=== PATIENT | female | born 1960 | race Caucasian/White ===

== ENCOUNTER → 2016-12-07 | Outpatient (REF) | payer OTHER | END | disposition home or self-care (01) | LOC: M LAB REF 12:55 | PROVIDERS: ATTEND Internal Medicine Medical Oncology | DX: C54.1 Malignant neoplasm of endometrium (principal) ==

== ENCOUNTER 2016-12-16 18:01 | Emergency (ER) | payer OTHER ==
[2016-12-16] MEDS ORDERED: BACTRIM 160MG/800MG DS TAB As Ordered ONE (19:58)
--- NOTE | 2016-12-16 20:10 | EDDOCDS ---
Physician Documentation [facility] Name: Isabel Orellana Age: 56 yrs Sex: Female : 1960 Arrival Date: 12/16/2016 Time: 18:01 Bed Triage 1 Private MD: [facility], [place] Disposition: 12/16/16 19:57 Discharged to Home/Self Care. Impression: Local infection of the skin and subcutaneous tissue, unspecified - Middle of Back. - Condition is Stable. - Prescriptions for Bactrim DS 800- 160 mg Oral Tablet - take 2 tablet by ORAL route every 12 hours for 7 days; 28 tablet. - Medication Reconciliation, Local Pharmacy Hours form. - Follow up: [facility]; When: 1 - 2 days; Reason: Recheck today's complaints, Continuance of care. Follow up: Emergency Department; Reason: Worsening of conditions. - Problem is new. - Symptoms have improved. Historical: - Allergies: no known allergies; - Home Meds: 1. chemo treatments q3 weeks 2. Aleve 220 mg Oral tab as needed 3. Invega [place] Shot every three months 4. Vitamin D unknown, aone pill two times daily Oral 5. atorvastatin oral oral once daily 6. unknown nausea medication - PMHx: Cervical Cancer, endometrial carcinoma; DJD; Bipolar disorder; Arthritis knees & feet; - PSHx: D & C; Hysterectomy; - Social history: Smoking status: Patient states former smoker of tobacco. No barriers to communication noted, The patient speaks fluent Arabic, Speaks appropriately for age. - Family history: Not pertinent. - : The pt / caregiver states he / she is not on anticoagulants. Home medication list is obtained from the patient. - Exposure Risk Screening:: None identified. 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 6 in. (167.64 cm); Pain 0/10; 20:08 BP 120 / 80; Pulse 79; Resp 18; Temp 96.8; Pulse Ox 96% on R/A; Pain 0/10; nn1 18:02 Body Mass Index 43.25 (121.56 kg, 167.64 cm) sew MDM: 19:51 Wound Culture & GS - Most Extremities Ordered. EDMS 19:52 Trimethoprim-Sulfamethoxazole (MRSA dose) 160 mg-800 mg (DS) 2 tabs PO once ordered. ef1 Administered Medications: 20:00 Drug: Trimethoprim-Sulfamethoxazole (MRSA dose) 2 tabs [sulfamethoxazole 800 ck1 mg-trimethoprim 160 mg tablet (2 tabs)] Route: PO; Signatures: Dispatcher [employer] EDMS Junie Koroma,RN RN ck1 Angelika Araiza PA-C PARachelC ef1 Mariia AldrichRN RN graysond Aleksandr PortilloRN RN nn1 MTDD
--- NOTE | 2016-12-16 20:10 | EDDOCDS ---
Nurse's Notes [facility] Name: Isabel Orellana Age: 56 yrs Sex: Female : 1960 Arrival Date: 12/16/2016 Time: 18:01 Bed Triage 1 Private MD: [facility] [place] Diagnosis: Local infection of the skin and subcutaneous tissue, unspecified-Middle of Back Presentation: 12/16 18:15 Presenting complaint: Patient states: pt presents with picture of open wound on upper ead back. reports having site drained four years ago. states "it burst during the night last night with drainage.". Adult Sepsis Screening: The patient does not have new or worsening altered mentation. Patient's respiratory rate is less than 22. Systolic blood pressure is greater than 100. Patient has a qSOFA score of 0- Negative Sepsis Screen. Suicide/Homicide risk assessment- the patient denies having any suicidal and/or homicidal ideations and does not present with any other emotional, behavioral or mental health complaints. Status: Patient is not a adoption services manager or dependent. Transition of care: patient was not received from another setting of care. 18:15 Acuity: MICHELET Level 4 ead 18:15 Method Of Arrival: Walkin/Carried/Asstd ead Triage Assessment: 18:18 General: Appears in no apparent distress, comfortable, well nourished, well groomed, ead Behavior is appropriate for age, cooperative, pleasant. Pain: Denies pain. HIV screening NA for this visit Offered previously. Derm: Skin is pink, warm & dry. pt presents with picture of open wound to middle of upper back. reports drainage at home last night. 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 chemo treatments q3 weeks 2. Aleve 220 mg Oral tab as needed 3. Invega [place] Shot every three months 4. Vitamin D unknown, aone pill two times daily Oral 5. atorvastatin oral oral once daily 6. unknown nausea medication - PMHx: Cervical Cancer, endometrial carcinoma; DJD; Bipolar disorder; Arthritis knees & feet; - PSHx: D & C; Hysterectomy; - Social history: Smoking status: Patient states former smoker of tobacco. No barriers to communication noted, The patient speaks fluent South Korean, Speaks appropriately for age. - Family history: Not pertinent. - : The pt / caregiver states he / she is not on anticoagulants. Home medication list is obtained from the patient. - Exposure Risk Screening:: None identified. Screenin:00 Screening information is obtained from the patient. Fall risk: No risks identified. ck1 Assistance ADL's: requires no assistance with activities of daily living. Abuse/DV Screen: The patient / caregiver reports he/she is: not in a situation that causes fear, pain or injury. Nutritional screening: No deficits noted. Advance Directives: Currently, there is no health care proxy. home support is adequate. Assessment: 20:01 General: Appears in no apparent distress, comfortable, Behavior is appropriate for age, ck1 cooperative. Derm: Skin is normal, wound to upper mid-back. Draining serosanguinous drainage. dressing intact. Vital Signs: 18:02 BP 108 / 75; Pulse 101; Resp 18; Temp 97.4(O); Pulse Ox 97% on R/A; Weight 121.56 kg; sew Height 5 ft. 6 in. (167.64 cm); Pain 0/10; 20:08 BP 120 / 80; Pulse 79; Resp 18; Temp 96.8; Pulse Ox 96% on R/A; Pain 0/10; nn1 18:02 Body Mass Index 43.25 (121.56 kg, 167.64 cm) [facility] [place] Vitals: 18:02 Log In Time: December 16, 2016 at 18:02. [facility] [place] ED Course: 18:01 Patient visited by Elisabeth Tello. sew 18:01 [facility] is Private Physician. sew 18:01 Patient moved to Waiting sew 18:03 Patient visited by Elisabeth Tello. sew 18:03 Patient moved to Pre RCE sew 18:16 Triage Initiated ead 19:24 Patient moved to Triage 1 ck1 19:27 Patient visited by Junie Koroma RN. ck1 19:40 Angelika Araiza PA-C is PHCP. ef1 19:40 Endy Jara DO is Attending Physician. ef1 19:44 Patient visited by Angelika Araiza PA-C. ef1 19:56 Wound Culture & GS - Most Extremities Sent. ck1 19:57 [facility] is Referral Physician. ef1 20:00 The patient / caregiver is instructed regarding the plan of care and ED course. ck1 20:00 No IV's were initiated during this patient's visit. No procedures done that require ck1 assistance. Administered Medications: 20:00 Drug: Trimethoprim-Sulfamethoxazole (MRSA dose) 2 tabs [sulfamethoxazole 800 ck1 mg-trimethoprim 160 mg tablet (2 tabs)] Route: PO; Order Results: There are currently no results for this order. Outcome: 19:57 Discharge ordered by Provider. ef1 20:09 Discharge Assessment: Patient awake, alert and oriented x 3. No cognitive and/or nn1 functional deficits noted. Patient verbalized understanding of disposition instructions. patient administered narcotics - no. The following High Risk Discharge criteria are identified: None. Discharged to home ambulatory, with family. Condition: unchanged. No special radiology studies were completed. Property :Personal belongings accompany Pt. 20:09 Patient left the ED. nn1 Signatures: Junie KoromaRN RN ck1 Angelika Araiza PARachelC PA-C ef1 Elisabeth Tello EmilyRN RN Aleksandr Smith RN RN nn1 MELANIE
--- NOTE | 2016-12-18 21:10 | EDDOCDS ---
Physician Documentation [facility] Name: Isabel Mazariegos Age: 56 yrs Sex: Female : 1960 Arrival Date: 12/16/2016 Time: 18:01 Bed Triage 1 Private MD: [facility], [place] Disposition: 12/16/16 19:57 Discharged to Home/Self Care. Impression: Local infection of the skin and subcutaneous tissue, unspecified - Middle of Back. - Condition is Stable. - Prescriptions for Bactrim DS 800- 160 mg Oral Tablet - take 2 tablet by ORAL route every 12 hours for 7 days; 28 tablet. - Medication Reconciliation, Local Pharmacy Hours form. - Follow up: [facility]; When: 1 - 2 days; Reason: Recheck today's complaints, Continuance of care. Follow up: Emergency Department; Reason: Worsening of conditions. - Problem is new. - Symptoms have improved. Historical: - Allergies: no known allergies; - Home Meds: 1. chemo treatments q3 weeks 2. Aleve 220 mg Oral tab as needed 3. Invega [place] Shot every three months 4. Vitamin D unknown, aone pill two times daily Oral 5. atorvastatin oral oral once daily 6. unknown nausea medication - PMHx: Cervical Cancer, endometrial carcinoma; DJD; Bipolar disorder; Arthritis knees & feet; - PSHx: D & C; Hysterectomy; - Social history: Smoking status: Patient states former smoker of tobacco. No barriers to communication noted, The patient speaks fluent Lithuanian, Speaks appropriately for age. - Family history: Not pertinent. - : The pt / caregiver states he / she is not on anticoagulants. Home medication list is obtained from the patient. - Exposure Risk Screening:: None identified. 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 6 in. (167.64 cm); Pain 0/10; 20:08 BP 120 / 80; Pulse 79; Resp 18; Temp 96.8; Pulse Ox 96% on R/A; Pain 0/10; nn1 18:02 Body Mass Index 43.25 (121.56 kg, 167.64 cm) sew MDM: 19:51 Wound Culture & GS - Most Extremities Ordered. EDMS 19:52 Trimethoprim-Sulfamethoxazole (MRSA dose) 160 mg-800 mg (DS) 2 tabs PO once ordered. ef1 20:14 [facility] Payment Agreement was scanned into [employer] and attached to record. gjb :14 Financial registration complete. gjb 12/17 09:43 T-Sheet-- Draft Copy was scanned into [employer] and attached to record. gb Administered Medications: 12/16 20:00 Drug: Trimethoprim-Sulfamethoxazole (MRSA dose) 2 tabs [sulfamethoxazole 800 ck1 mg-trimethoprim 160 mg tablet (2 tabs)] Route: PO; Signatures: Dispatcher [employer] EDMS Mercedes Long, Reg Reg gb Keiko-Junie Marques,RN RN ck1 Angelika Araiza, PARachelC PARachelC ef1 Mariia AldrichRN RN Aleksandr SmithRN RN nn1 Thais Bunch The chart was reviewed and I authenticate all verbal orders and agree with the evaluation and treatment provided.Attachments: 20:14 [facility] Payment Agreement gjb 12/17 09:43 T-Sheet-- Draft Copy gb Chart Complete MTDD
--- NOTE | 2016-12-18 21:11 | EDDOCDS ---
Physician Documentation [facility] Name: Isabel Mazariegos Age: 56 yrs Sex: Female : 1960 Arrival Date: 12/16/2016 Time: 18:01 Bed Triage 1 Private MD: [facility] [place] Disposition: 12/16/16 19:57 Discharged to Home/Self Care. Impression: Local infection of the skin and subcutaneous tissue, unspecified - Middle of Back. - Condition is Stable. - Prescriptions for Bactrim DS 800- 160 mg Oral Tablet - take 2 tablet by ORAL route every 12 hours for 7 days; 28 tablet. - Medication Reconciliation, Local Pharmacy Hours form. - Follow up: [facility]; When: 1 - 2 days; Reason: Recheck today's complaints, Continuance of care. Follow up: Emergency Department; Reason: Worsening of conditions. - Problem is new. - Symptoms have improved. Historical: - Allergies: no known allergies; - Home Meds: 1. chemo treatments q3 weeks 2. Aleve 220 mg Oral tab as needed 3. Invega [place] Shot every three months 4. Vitamin D unknown, aone pill two times daily Oral 5. atorvastatin oral oral once daily 6. unknown nausea medication - PMHx: Cervical Cancer, endometrial carcinoma; DJD; Bipolar disorder; Arthritis knees & feet; - PSHx: D & C; Hysterectomy; - Social history: Smoking status: Patient states former smoker of tobacco. No barriers to communication noted, The patient speaks fluent Ukrainian, Speaks appropriately for age. - Family history: Not pertinent. - : The pt / caregiver states he / she is not on anticoagulants. Home medication list is obtained from the patient. - Exposure Risk Screening:: None identified. 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 6 in. (167.64 cm); Pain 0/10; 20:08 BP 120 / 80; Pulse 79; Resp 18; Temp 96.8; Pulse Ox 96% on R/A; Pain 0/10; nn1 18:02 Body Mass Index 43.25 (121.56 kg, 167.64 cm) sew MDM: 19:51 Wound Culture & GS - Most Extremities Ordered. EDMS 19:52 Trimethoprim-Sulfamethoxazole (MRSA dose) 160 mg-800 mg (DS) 2 tabs PO once ordered. ef1 20:14 [facility] Payment Agreement was scanned into [address] and attached to record. gjb :14 Financial registration complete. gjb 12/17 09:43 T-Sheet-- Draft Copy was scanned into [address] and attached to record. gb Administered Medications: 12/16 20:00 Drug: Trimethoprim-Sulfamethoxazole (MRSA dose) 2 tabs [sulfamethoxazole 800 ck1 mg-trimethoprim 160 mg tablet (2 tabs)] Route: PO; Signatures: Dispatcher MedHost EDMS Mercedes Long, Reg Reg gb Keiko-Junie Marques,RN RN ck1 Angelika Araiza, PARachelC PARachelC ef1 Mariia AldrichRN RN Aleksandr SmithRN RN nn1 Thais Bunch The chart was reviewed and I authenticate all verbal orders and agree with the evaluation and treatment provided.Attachments: 20:14 [facility] Payment Agreement gjb 12/17 09:43 T-Sheet-- Draft Copy gb Chart Complete MTDD
--- NOTE | 2016-12-18 21:11 | EDDOCDS ---
Nurse's Notes [facility] Name: Isabel Mazariegos Age: 56 yrs Sex: Female : 1960 Arrival Date: 12/16/2016 Time: 18:01 Bed Triage 1 Private MD: [facility] [place] Diagnosis: Local infection of the skin and subcutaneous tissue, unspecified-Middle of Back Presentation: 12/16 18:15 Presenting complaint: Patient states: pt presents with picture of open wound on upper ead back. reports having site drained four years ago. states "it burst during the night last night with drainage.". Adult Sepsis Screening: The patient does not have new or worsening altered mentation. Patient's respiratory rate is less than 22. Systolic blood pressure is greater than 100. Patient has a qSOFA score of 0- Negative Sepsis Screen. Suicide/Homicide risk assessment- the patient denies having any suicidal and/or homicidal ideations and does not present with any other emotional, behavioral or mental health complaints. Status: Patient is not a customer service leader or dependent. Transition of care: patient was not received from another setting of care. 18:15 Acuity: MICHELET Level 4 ead 18:15 Method Of Arrival: Walkin/Carried/Asstd ead Triage Assessment: 18:18 General: Appears in no apparent distress, comfortable, well nourished, well groomed, ead Behavior is appropriate for age, cooperative, pleasant. Pain: Denies pain. HIV screening NA for this visit Offered previously. Derm: Skin is pink, warm & dry. pt presents with picture of open wound to middle of upper back. reports drainage at home last night. 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 chemo treatments q3 weeks 2. Aleve 220 mg Oral tab as needed 3. Invega [place] Shot every three months 4. Vitamin D unknown, aone pill two times daily Oral 5. atorvastatin oral oral once daily 6. unknown nausea medication - PMHx: Cervical Cancer, endometrial carcinoma; DJD; Bipolar disorder; Arthritis knees & feet; - PSHx: D & C; Hysterectomy; - Social history: Smoking status: Patient states former smoker of tobacco. No barriers to communication noted, The patient speaks fluent Mosotho, Speaks appropriately for age. - Family history: Not pertinent. - : The pt / caregiver states he / she is not on anticoagulants. Home medication list is obtained from the patient. - Exposure Risk Screening:: None identified. Screenin:00 Screening information is obtained from the patient. Fall risk: No risks identified. ck1 Assistance ADL's: requires no assistance with activities of daily living. Abuse/DV Screen: The patient / caregiver reports he/she is: not in a situation that causes fear, pain or injury. Nutritional screening: No deficits noted. Advance Directives: Currently, there is no health care proxy. home support is adequate. Assessment: 20:01 General: Appears in no apparent distress, comfortable, Behavior is appropriate for age, ck1 cooperative. Derm: Skin is normal, wound to upper mid-back. Draining serosanguinous drainage. dressing intact. Vital Signs: 18:02 BP 108 / 75; Pulse 101; Resp 18; Temp 97.4(O); Pulse Ox 97% on R/A; Weight 121.56 kg; sew Height 5 ft. 6 in. (167.64 cm); Pain 0/10; 20:08 BP 120 / 80; Pulse 79; Resp 18; Temp 96.8; Pulse Ox 96% on R/A; Pain 0/10; nn1 18:02 Body Mass Index 43.25 (121.56 kg, 167.64 cm) [facility] [place] Vitals: 18:02 Log In Time: December 16, 2016 at 18:02. [facility] [place] ED Course: 18:01 Patient visited by Elisabeth Tello. sew 18:01 [facility] is Private Physician. sew 18:01 Patient moved to Waiting sew 18:03 Patient visited by Elisabeth Tello. sew 18:03 Patient moved to Pre RCE sew 18:16 Triage Initiated ead 19:24 Patient moved to Triage 1 ck1 19:27 Patient visited by Jnuie Koroma RN. ck1 19:40 Angelika Araiza PA-C is PHCP. ef1 19:40 Endy Jara DO is Attending Physician. ef1 19:44 Patient visited by Angelika Araiza PA-C. ef1 19:56 Wound Culture & GS - Most Extremities Sent. ck1 19:57 [facility] is Referral Physician. ef1 20:00 The patient / caregiver is instructed regarding the plan of care and ED course. ck1 20:00 No IV's were initiated during this patient's visit. No procedures done that require ck1 assistance. 20:13 Patient name changed from Isabel\\Alfredo\\Tamika\\S\\Reyna\\S\\ to Isabel\\Alfredo\\Tamika\\S\\Yair. EDMS 20:14 [facility] Payment Agreement was scanned into [employer] and attached to record. gjjanet 12/17 09:43 T-Sheet-- Draft Copy was scanned into [employer] and attached to record. gb Administered Medications: 12/16 20:00 Drug: Trimethoprim-Sulfamethoxazole (MRSA dose) 2 tabs [sulfamethoxazole 800 ck1 mg-trimethoprim 160 mg tablet (2 tabs)] Route: PO; Order Results: Lab Order: Wound Culture & GS - Most Extremities; SPEC'M 12/16/16 19:54 Test: GRAM STAIN; Value: GRAM STAIN RESULT; Status: F Test: GRAM STAIN; Value: MODERATE WBCS; Status: F Test: GRAM STAIN; Value: FEW RBCS; Status: F Test: GRAM STAIN; Value: FEW EPITHELIAL CELLS; Status: F Test: GRAM STAIN; Value: NO ORGANISMS SEEN; Status: F Outcome: 19:57 Discharge ordered by Provider. ef1 20:09 Discharge Assessment: Patient awake, alert and oriented x 3. No cognitive and/or nn1 functional deficits noted. Patient verbalized understanding of disposition instructions. patient administered narcotics - no. The following High Risk Discharge criteria are identified: None. Discharged to home ambulatory, with family. Condition: unchanged. No special radiology studies were completed. Property :Personal belongings accompany Pt. 20:09 Patient left the ED. nn1 Signatures: Dispatcher [employer] EDMS Mercedes Long, Reg Reg Junie Chaney,RN RN ck1 Angelika Araiza PA-C PARachelC ef1 Elisabeth Tello EmilyRN Aleksandr HillsRN RN nn1 Thais Bunch Chart Complete MTDD
== END 2016-12-16 20:09 | disposition home or self-care (01) ==
LOC: M ED 18:01
DX: L08.9 Local infection of the skin and subcutaneous tissue, unspecified (principal); C53.9 Malignant neoplasm of cervix uteri, unspecified; C54.1 Malignant neoplasm of endometrium; M19.90 Unspecified osteoarthritis, unspecified site; F31.9 Bipolar disorder, unspecified; Z87.891 Personal history of nicotine dependence; Z79.899 Other long term (current) drug therapy

== ENCOUNTER → 2016-12-28 | Outpatient (REF) | payer OTHER | END | disposition home or self-care (01) | LOC: M LAB REF 12:13 | PROVIDERS: ATTEND Internal Medicine Medical Oncology | DX: C54.1 Malignant neoplasm of endometrium (principal) ==

== ENCOUNTER → 2017-01-18 | Outpatient (REF) | payer OTHER | LOC: M LAB REF 12:37 | PROVIDERS: ATTEND Internal Medicine Medical Oncology | DX: C54.1 Malignant neoplasm of endometrium (principal) ==

== ENCOUNTER → 2017-01-27 | Outpatient (CLI) | payer OTHER ==
[~2017-01-27] MED LIST: GASTROGRAFIN SOLUTION 30ML (Q9963) As Ordered ONE; ISOVUE-370 76% 100ML VIAL (Q9967) As Ordered ONE
--- NOTE | 2017-01-27 17:04 | REP ---
CT study of the chest with IV contrast: History: Endometrial carcinoma. Increasing tumor marker. Comparison chest x-ray is from 11/03/2016. CT contrast dose: 100 mL of Isovue-[address] findings: A right-sided Rreobf-U-Htge catheter is seen with its tip in the superior vena cava. There is a curvilinear 7 mm pleural based opacity on the minor fissure in the right middle lobe. This may be focal pleural thickening. There is a granulomatous calcification in the right lower lobe which is benign in appearance. No other pulmonary nodule or mass lesion is seen. No pleural effusion or pericardial effusion is noted. No hilar or mediastinal mass or adenopathy is seen. No extrathoracic mass or adenopathy noted. There is diffuse fatty infiltration of the liver. No adrenal masses seen. A granulomatous calcification is noted in the spleen. Bone window settings show no bony destructive lesion. Impression: 7 mm area of pleural fibrosis along the minor fissure on the right. Granulomatous calcification right lung base. No active cardiopulmonary disease. Signed by Kane Soto MD 01/28/2017 08:12 A
--- NOTE | 2017-01-27 17:20 | REP ---
CT study of the abdomen and pelvis without and with IV contrast: With oral contrast: History: Endometrial carcinoma. Increased tumor markers. Comparison CT study is from November 03, 2016. CT contrast dose: 100 mL of Isovue [address] findings: There is mild to moderate diffuse fatty infiltration of the liver. This is a little more prominent than on the prior study. No liver mass lesion is seen however. Spleen remains unremarkable except for a granulomatous calcification. The kidneys enhance symmetrically and are morphologically intact. No adrenal mass is seen. The left periaortic adenopathy noted on the 11/03/2016 prior study has decreased in size from 2.5 cm previously to 0.8 cm today. No new periaortic aparna focus is seen. No mesenteric ap[place] enlargement or mass lesion is seen. A normal appendix is seen. Small and large intestinal bowel loops are normal. The previous study showed a aparna enlargement along the left pelvic sidewall posterior the external iliac vein. This has decreased in size as well from the prior study. It measures 2.2 cm in anteroposterior x 1.7 cm in medial to lateral x 2.6 cm craniocaudal. Previous dimensions were 2.9 x 2.0 x 3.6 cm. No new pelvic adenopathy is seen. Uterus is surgically absent. Bladder appears intact. No bony destructive lesion is seen. There is some osteoarthritis of the left hip. Impression: Improvement noted in the previously observed left pelvic sidewall and left periaortic lymphadenopathy. No new adenopathy or new metastasis seen. Signed by Kane Soto MD 01/28/2017 08:12 A
== END ==
LOC: M RAD 14:17
PROVIDERS: ATTEND Internal Medicine Medical Oncology
DX: C54.1 Malignant neoplasm of endometrium (principal); R91.8 Other nonspecific abnormal finding of lung field; J98.4 Other disorders of lung
CPT/HCPCS: 71260; 74178; Q9963; Q9967

== ENCOUNTER → 2017-03-01 | Outpatient (REF) | payer OTHER | LOC: M LAB REF 12:53 | PROVIDERS: ATTEND Internal Medicine Medical Oncology | DX: C54.1 Malignant neoplasm of endometrium (principal) ==

== ENCOUNTER → 2017-03-22 | Outpatient (CLI) | payer OTHER ==
--- NOTE | 2017-03-23 03:59 | REP ---
Clinical: Endometrial carcinoma for restaging. Technique: Axial contrast enhanced images from the thoracic inlet to the upper abdomen using 100 ml Isovue 370 intravenous contrast material with coronal and sagittal re-formations. Comparison: 01/27/2017. Findings: 7 mm density along the minor fissure as well as 3 mm calcified nodule in the right lung base remain stable and suggests chronic changes related to prior granulomatous disease. No acute pulmonary parenchymal consolidation, significant nodule or mass lesion identified. No pleural effusion/reaction. No pneumothorax. Tracheobronchial tree is patent. No adenopathy. Mediastinum including thoracic aorta, heart and pericardium appear normal. Surrounding musculoskeletal structures without focal osseous abnormality. Szfmam-T-Jsek noted in the right anterior chest wall. Upper abdomen demonstrates stable appearance of bilateral adrenal glands. Impression: Stable changes as described above. Findings likely related to prior granulomas disease. No evidence for acute mediastinal or pleuroparenchymal process. Signed by Saúl Ott MD 03/23/2017 03:51 A
--- NOTE | 2017-03-23 04:06 | REP ---
Clinical: Endometrial carcinoma for restaging. Technique: Axial contrast enhanced images from the lung bases to the pubic symphysis using oral and 100 ml Isovue 370 intravenous contrast material along with precontrast and delayed images of the abdomen as well as coronal and sagittal re-formations. Comparison: 01/27/2017, 11/03/2016. Findings: Lung bases demonstrate calcified granuloma in the right lower lobe. Visualized portions of the heart and pericardium normal. Liver, spleen, pancreas, bilateral adrenal glands and kidneys are essentially normal. A 2 mm nonobstructing left intrarenal calculus identified. Cholelithiasis suggested without acute cholecystitis. The enteric system is without obstruction or acute inflammatory process. Pelvis demonstrates collapsed bladder and evidence for prior hysterectomy. No ascites. No free air. Para-aortic and left pelvic sidewall lymph nodes may be very minimally improved although appear relatively stable. No new adenopathy, evidence for metastasis or mass lesion appreciated. Musculoskeletal structures demonstrate age-related changes without focal osseous abnormality. Impression: 1. Left para-aortic and left pelvic sidewall lymph nodes are relatively stable/very minimally improved. 2. No new acute adenopathy, metastatic focus, or mass lesion appreciated. No ascites. 3. 2 mm nonobstructing left renal calculus. Signed by Saúl Ott MD 03/23/2017 03:58 A
== END ==
LOC: M RAD 13:05
PROVIDERS: ATTEND Internal Medicine Medical Oncology
DX: C54.1 Malignant neoplasm of endometrium (principal); N20.0 Calculus of kidney
CPT/HCPCS: 71260; 74178; Q9963; Q9967

== ENCOUNTER → 2017-03-28 | Outpatient (REF) | payer OTHER | LOC: M LAB REF 16:33 | PROVIDERS: ATTEND Internal Medicine Medical Oncology | DX: C54.1 Malignant neoplasm of endometrium (principal) ==

== ENCOUNTER → 2017-04-13 | Outpatient (CLI) | payer OTHER ==
--- NOTE | 2017-04-13 16:45 | REP ---
PET/CT: History: Restaging endometrial carcinoma. Persistent pelvic lymphadenopathy. Status post total abdominal hysterectomy and bilateral salpingo-oophorectomy. Completed adjuvant chemotherapy. Comparisons: CT studies are from 03/22/2017 and 03/29/2017 as well as 11/03/2016. Previous scans are shown left periaortic and left pelvic sidewall lymphadenopathy. TECHNIQUE: 49 minutes following the intravenous injection of a 9.2 mCi dose of F-18 FDG, three-dimensional PET scintigraphy is acquired from the skull base to the proximal thighs. Triplanar noncontrast CT scanning is acquired through the same anatomic range for attenuation correction, and image registration with scan parameters optimized to minimize radiation exposure to the patient. PET scintigraphy and CT datasets were fused and displayed on a workstation with multiplanar and projection display capability. PET/CT Findings: The previously noted left periaortic lymph node located below the level of the left renal vascular pedicle is not hypermetabolic. Maximum standard uptake value is 1.2 within this tiny sub-centimeter lymph node. This is decreased in size from its appearance on the 11/03/2016 prior study and unchanged from the most recent exam of 03/22/2017. It measures 7 mm in greatest diameter. The previously noted left pelvic sidewall lymph node is again seen. This shows visible but non hypermetabolic FDG accumulation. Maximum standard uptake value is 2.1 within this 2.0 cm lymph node. This has decreased in size since the 10/[address] study as well. Today it measures 2.3 x 2.0 cm, previously 2.9 x 2.0 cm in October 2016. Most recently this node measured 1.9 x 1.5 cm in 03/22/2017 scan. No other abdominal or pelvic hypermetabolic uptake is seen. No abnormal hypermetabolic uptake is seen in the chest. Head and neck soft tissues show no abnormal hypermetabolic uptake. Impression: Non-hypermetabolic but visible uptake in a persistently enlarged left pelvic sidewall lymph node. This is improved from 11/03/2016. No other abnormal FDG accumulation is seen. The previously noted left periaortic lymph node is less than a centimeter in diameter and shows no discernible FDG accumulation. Otherwise negative. Signed by Kane Soto MD 04/13/2017 05:12 P
== END ==
LOC: M PLARAD 10:18
PROVIDERS: ATTEND Internal Medicine Medical Oncology
DX: C54.1 Malignant neoplasm of endometrium (principal); Z90.710 Acquired absence of both cervix and uterus; Z90.722 Acquired absence of ovaries, bilateral; Z92.21 Personal history of antineoplastic chemotherapy; R59.0 Localized enlarged lymph nodes
CPT/HCPCS: 78815; A9552

== ENCOUNTER → 2017-04-14 | Outpatient (CLI) | payer OTHER ==
--- NOTE | 2017-04-14 10:56 | RADONC ---
RADIATION ONCOLOGY FOLLOWUP NOTE DATE: 04/14/2017 CHART NUMBER: [id number] DIAGNOSIS: Endometrial cancer. STAGE: IIIC2, [id number]. ECOG PERFORMANCE STATUS: 0. FOLLOWUP NOTE: Ms. Mazariegos is a very pleasant 56-year-old white female with the diagnosis of what appears to be a stage IIIC2, [id number] moderately differentiated endometrial adenocarcinoma who is initially presented to us on 10/19/2016 for consideration of postoperative radiation therapy following total abdominal hysterectomy, bilateral salpingo-oophorectomy, as well as pelvic and periaortic lymphadenectomy. Since that time the patient has undergone systemic therapy consisting of carboplatin and Taxol. She completed six cycles of carboplatin and Taxol and her last treatment was on March 01, 2017. She is now presenting for consideration of her postoperative radiation therapy. The patient presents today reporting that she is doing quite well with no complaints at this time related to her chemotherapy. She is ready to start radiation. She is having no urinary or bowel difficulties. No bone pain. She has no pelvic difficulties either. The patient's review of systems is noncontributory. She denies nausea, vomiting, fevers, chills, night sweats, diplopia, headaches, anxiety or depression, anorexia, weight loss, visual disturbances, chest pain, urinary or bowel difficulties, bone pain, or neurological problems. PHYSICAL EXAMINATION: The patient is a well-developed, well-nourished, female in no acute distress. HEENT exam is normocephalic, atraumatic. Extraocular movements are intact. There is no palpable cervical, supraclavicular, infraclavicular, axillary, or inguinal lymphadenopathy present. Lungs are clear to auscultation and percussion. Heart has a regular rate and rhythm. Abdomen is benign with no hepatosplenomegaly, masses, or tenderness. Gynecology exam was deferred. Skeletal examination reveals no tenderness to pressure or percussion of the bony skeleton. Extremities reveal no clubbing, cyanosis, or edema. Neurologic exam is grossly intact, as is the remainder of the physical examination. ASSESSMENT: Ms. Green has completed chemotherapy without difficulty and is now presenting for consideration of her postoperative radiation therapy. A PET scan was done on 04/13/2017 that showed some continued pelvic as well as periaortic lymphadenopathy but no hypermetabolic uptake. I have discussed with the patient in detail the potential benefits as well as possible acute and chronic sequelae of external beam radiation therapy. We discussed logistics of treatment planning, simulation and subsequent fractionated daily radiation treatments. I am scheduling the patient for the next available simulation slot and radiation treatments will follow. Thank you for allowing us to participate in the care of this very pleasant woman. If I could be of any further assistance or provide you with any information, please free to contact me anytime. cc: Love Barraza MD *Carolina Ruelas MD
--- NOTE | 2017-04-19 11:04 | RADONC ---
RADIATION ONCOLOGY SIMULATION NOTE: CHART NO: [id number] DATE: 04/19/2017 Ms. Rene White was taken to the CT scan for CT simulation of her abdominal pelvic field. CT was accomplished without difficulty or discomfort. Radiation treatment planning is underway and radiation treatments will begin subsequently. An immobilization device was created and will be used throughout the course of treatment. It was also created without difficulty or discomfort. I was physically present throughout the course of CT simulation. [facility]
== END ==
LOC: M ONCR 08:49
PROVIDERS: ATTEND Radiology Radiation Oncology
DX: C54.1 Malignant neoplasm of endometrium (principal)

== ENCOUNTER 2017-04-19 11:41 | Outpatient (RCR) | payer OTHER | END 2017-04-27 | LOC: M ONCR 11:41 | PROVIDERS: ATTEND Radiology Radiation Oncology | DX: C54.1 Malignant neoplasm of endometrium (principal) ==

== ENCOUNTER → 2017-04-19 | Outpatient (REF) | payer OTHER | LOC: M LAB REF 12:36 | PROVIDERS: ATTEND Internal Medicine Medical Oncology | DX: C54.1 Malignant neoplasm of endometrium (principal) ==

== ENCOUNTER → 2017-04-19 | Outpatient (CLI) | payer OTHER | LOC: M RAD 10:29 | PROVIDERS: ATTEND Radiology Radiation Oncology | DX: C54.1 Malignant neoplasm of endometrium (principal) ==

== ENCOUNTER 2017-04-28 10:37 | Outpatient (RCR) | payer OTHER ==
--- NOTE | 2017-05-04 07:13 | RADONC ---
RADIATION ONCOLOGY PROGRESS NOTE DATE: 05/03/2017 CHART NUMBER: [id number] Ms. Orellana is presently at a dose of 900 cGy to her pelvis and periaortic region and is tolerating treatments quite well at this point with no complaints related to her radiation therapy other than some mild occasional nausea. The patient's review of systems is positive for some nausea but is otherwise noncontributory. Denies nausea, vomiting, fevers, chills, night sweats, diplopia, headaches, anxiety or depression, anorexia, weight loss, visual disturbances, chest pain, urinary or bowel difficulties, bone pain, or neurological problems. PHYSICAL EXAMINATION: The patient's skin is in good condition with no evidence of radiation change present. There is no moist or dry desquamation. The remainder of her physical exam remains unchanged. Ms. Orellana is tolerating treatments quite well and radiation will continue as scheduled.
--- NOTE | 2017-05-09 11:52 | RADONC ---
RADIATION ONCOLOGY PROGRESS NOTE: DATE: 05/09/2017 CHART NUMBER: [id number]. PROGRESS NOTE: Ms. Orellana is presently at a dose of 1620 cGy to her pelvis and periaortic is tolerating treatments quite well at this point with no significant difficulties related to her radiation therapy. She is having no urinary or bowel difficulties and no bone pain. REVIEW OF SYSTEMS: The patient's review of systems is noncontributory. Denies nausea, vomiting, fevers, chills, night sweats, diplopia, headaches, anxiety or depression, anorexia, weight loss, visual disturbances, chest pain, urinary or bowel difficulties, bone pain, or neurological problems. PHYSICAL EXAMINATION: The patient's skin is in good condition with no evidence of moist or dry desquamation. The remainder of her physical exam remains unchanged. Ms. Orellana is tolerating treatments quite well and radiation will continue as scheduled.
--- NOTE | 2017-05-17 06:33 | RADONC ---
RADIATION ONCOLOGY PROGRESS NOTE: DATE: 05/16/2017 CHART NUMBER: [id number]. PROGRESS NOTE: Ms. Orellana is presently at a dose of 2520 cGy to her pelvis and periaortic and is generally tolerating her treatments fairly well, although she has been complaining of significant diarrhea over the past few days. The patient reports that she has had 10-15 bowel movements a day over the last few days. She had been running 4 or 5. She has not used any Imodium at this point. She is eating normally. REVIEW OF SYSTEMS: The patient's review of systems is positive for some loose bowel movement but is otherwise noncontributory. Denies nausea, vomiting, fevers, chills, night sweats, diplopia, headaches, anxiety or depression, anorexia, weight loss, visual disturbances, chest pain, urinary or bowel difficulties, bone pain, or neurological problems. PHYSICAL EXAMINATION: The patient's skin is in good condition with no evidence of moist or dry desquamation. The remainder of physical exam remains unchanged. Ms. Orellana has been instructed to use some Imodium and we will continue to follow her closely. I have let her know that we can take a treatment break if her bowel movements do not stabilize over the next couple of days with Imodium. She has also been given dietary instructions and a list of foods to avoid. In the he meantime, at her request, radiation will continue.
--- NOTE | 2017-05-23 12:15 | RADONC ---
RADIATION ONCOLOGY PROGRESS NOTE DATE: 05/23/2017 CHART NUMBER: [id number] Ms. Orellana is presently at a dose of 3420 cGy to her pelvis and periaortic and is tolerating treatments quite well at this point with no significant difficulties related to radiation therapy other than some itching of the skin in the treated morejon. The patient's review of systems is positive for skin aging but is otherwise noncontributory. She denies nausea, vomiting, fevers, chills, night sweats, diplopia, headaches, anxiety or depression, anorexia, weight loss, visual disturbances, chest pain, urinary or bowel difficulties, bone pain, or neurological problems. PHYSICAL EXAMINATION: The patient's skin shows some erythema and tanning present but overall is in good condition with no evidence of moist or dry desquamation. The remainder of her physical exam remains unchanged. Ms. Orellana is tolerating treatments quite well and radiation will continue as scheduled.
[2017-05-27] MEDS ORDERED: SILV-4 TOP (09:48)
== END 2017-05-27 ==
LOC: M ONCR 10:37
PROVIDERS: ATTEND Radiology Radiation Oncology
DX: C54.1 Malignant neoplasm of endometrium (principal)

== ENCOUNTER 2017-06-01 08:59 | Outpatient (RCR) | payer OTHER ==
[~2017-06-01 08:59] MED LIST changes: -GASTROGRAFIN SOLUTION 30ML (Q9963) As Ordered ONE; -ISOVUE-370 76% 100ML VIAL (Q9967) As Ordered ONE; +SILV-4 TOP
--- NOTE | 2017-06-03 09:36 | RADONC ---
RADIATION ONCOLOGY PROGRESS NOTE DATE: 06/01/2017 CHART NUMBER: [id number]. Ms. Orellana is presently at a dose of 4320 centigrade to her periaortic and pelvic lymph nodes and is tolerating treatments fairly well with no significant difficulties related to her radiation therapy. The patient reports that her skin has some tenderness and erythema present and she does have some loss of appetite, but otherwise she is having no problems. The patient's review of systems is positive for skin tenderness and loss of appetite, but is overall otherwise negative. Denies nausea, vomiting, fevers, chills, night sweats, diplopia, headaches, anxiety or depression, anorexia, weight loss, visual disturbances, chest pain, urinary or bowel difficulties, bone pain, or neurological problems. PHYSICAL EXAMINATION: The patient's skin shows erythema and tanning present, but overall is in generally good condition. The remainder of physical exam remains unchanged. Ms. Orellana is scheduled for treatment completion tomorrow and radiation will continue as scheduled.
--- NOTE | 2017-06-03 09:40 | RADONC ---
RADIATION ONCOLOGY TREATMENT SUMMARY DATE: 06/03/2017 CHART NUMBER: [id number] DIAGNOSIS: Endometrial carcinoma. STAGE: IIIC2, [id number]. ECOG PERFORMANCE STATUS: 0. TREATMENT SUMMARY: Ms. Orellana is a very pleasant 55-year-old white female with the diagnosis of a stage IIIC2, [id number], moderately differentiated endometrial adenocarcinoma who presented to us status post total abdominal hysterectomy, bilateral salpingo-oophorectomy, as well as pelvic and periaortic lymphadenectomy followed by chemotherapy consisting of carboplatin and Taxol for consideration of external beam radiation therapy in attempt to increase the likelihood of achieving local control. We treated the patient to her pelvis and periaortic lymph nodes for a dose of 4500 cGy delivered in 25 fractions of 180 cGy each over 36 elapsed days from 04/27/2017 through 06/02/2017. The patient's pelvis and periaortic nodes were treated on a linear accelerator utilizing an 18 MV photon beam via 3-D conformal therapy with anterior and posterior left and right lateral morejon. Ms. Orellana tolerated her treatments quite well with no significant difficulties related to her radiation therapy. She was able to complete therapy as prescribed. I have scheduled the patient to see me again in 1 month for further followup. She will also continue to be followed by her other physicians as well. Thank you for allowing us to participate in the care of this very pleasant woman. If I could be of any further assistance or provide you with any information, please free to contact me anytime.
== END 2017-06-27 ==
LOC: M ONCR 08:59
PROVIDERS: ATTEND Radiology Radiation Oncology
DX: C54.1 Malignant neoplasm of endometrium (principal)

== ENCOUNTER → 2017-06-06 | Outpatient (REF) | payer OTHER | LOC: M LAB REF 17:32 | PROVIDERS: ATTEND Internal Medicine Medical Oncology | DX: C54.1 Malignant neoplasm of endometrium (principal) ==

== ENCOUNTER → 2017-07-04 | Outpatient (REF) | payer OTHER | LOC: M LAB REF 16:43 | PROVIDERS: ATTEND Internal Medicine Medical Oncology | DX: C54.1 Malignant neoplasm of endometrium (principal) ==

== ENCOUNTER → 2017-07-06 | Outpatient (CLI) | payer OTHER ==
--- NOTE | 2017-07-06 11:16 | RADONC ---
RADIATION ONCOLOGY FOLLOWUP NOTE DATE: 07/06/2017 CHART NUMBER: [id number] DIAGNOSIS: Endometrial cancer. STAGE: IIIC2, [id number]. ECOG PERFORMANCE STATUS: 0 Ms. Orellana is a very pleasant 56-year-old white female with the diagnosis of a stage IIIC2, [id number], moderately differentiated endometrial adenocarcinoma who is presenting to us today for routine followup visit 1 month post completion of external beam radiation therapy. The patient presents today reporting that she is doing quite well with no complaints at this time related to her radiation therapy or disease. She has no urinary or bowel difficulties and no bone pain. The patient's review of systems is noncontributory. She denies nausea, vomiting, fevers, chills, night sweats, diplopia, headaches, anxiety or depression, anorexia, weight loss, visual disturbances, chest pain, urinary or bowel difficulties, bone pain, or neurological problems. PHYSICAL EXAMINATION: The patient is a well-developed, well-nourished female in no acute distress. HEENT exam is normocephalic, atraumatic. Extraocular movements are intact. There is no palpable cervical, supraclavicular, infraclavicular, axillary, or inguinal lymphadenopathy present. Lungs are clear to auscultation and percussion. Heart has a regular rate and rhythm. Abdomen is benign with no hepatosplenomegaly, masses, or tenderness. SCOUT examination deferred. Skeletal examination reveals no tenderness to pressure or percussion of the bony skeleton. Extremities reveal no clubbing, cyanosis, or edema. Neurologic exam is grossly intact, as is the remainder of the physical examination. ASSESSMENT: The patient is clinically doing well at this point with no difficulties related to her completed radiation. The patient reports that she is being seen by numerous physicians including her medical oncologist, Dr. Barraza, as well as Dr. Ruelas. In light of this, I have discharged her from our followup except on a p.r.n. basis. She will be continuing with her close management through her medical oncologist, Dr. Barraza. cc: MD Love Maravilla MD [facility]
== END ==
LOC: M ONCR 09:52
PROVIDERS: ATTEND Radiology Radiation Oncology
DX: C54.1 Malignant neoplasm of endometrium (principal)

== ENCOUNTER → 2017-10-14 | Outpatient (CLI) | payer OTHER ==
[~2017-10-14] MED LIST changes: +GASTROGRAFIN SOLUTION 30ML (Q9963) As Ordered ONE; +ISOVUE-370 76% 100ML VIAL (Q9967) As Ordered ONE
--- NOTE | 2017-10-19 09:49 | REP ---
Clinical: Endometrial carcinoma. Technique: Axial contrast enhanced images from the lung bases to the pubic symphysis using oral (per protocol) and 100 ml Isovue 370 intravenous contrast material along with precontrast and delayed images of the abdomen as well as coronal and sagittal re-formations. Comparison: 03/22/2017. Findings: Lung bases are clear. Visualized heart and pericardium are normal. Liver, spleen, pancreas, gallbladder, bilateral adrenal glands and kidneys are essentially normal. Small benign adrenal adenoma involving the right adrenal gland cannot be excluded and 2 mm nonobstructing left renal calculus is identified. The enteric system is without obstruction or acute inflammatory process and a normal terminal ileum and appendix are identified in the right lower quadrant. Pelvis demonstrates collapsed normal bladder and evidence for prior hysterectomy. Left pelvic sidewall lymph node is again identified and may be slightly increased in size when compared to prior examination (images 119 - 131). No further adenopathy or recurrent lesion is identified. No pelvic fluid or ascites. No free air. Vasculature appears stable and without aneurysm. Surrounding musculoskeletal structures demonstrate age-related changes without focal osseous abnormality. Impression: 1. Left pelvic sidewall lymph node is relatively similar to prior examination although slight increase in size and extension along the left pelvic wall cannot be excluded. No further new adenopathy or recurrent mass lesion. No ascites. 2. Stable small right adrenal adenoma unchanged compared to prior examination. 3. Stable 2 mm nonobstructing left renal calculus. Signed by Saúl Ott MD 10/19/2017 09:41 A
--- NOTE | 2017-10-19 09:55 | REP ---
Clinical: Endometrial carcinoma. Technique: Axial contrast enhanced images from the thoracic inlet to the upper abdomen using 100 ml Isovue 370 intravenous contrast material with coronal and sagittal re-formations. Comparison: 03/22/2017. Findings: There is a new 13 mm soft tissue nodule in the deep right sulcus (image 89) as well as possible similar 9 mm nodule in the deep left sulcus (image 88), and given the patient's history findings are suspicious for metastatic disease. A 6 mm nodule in the posterior right lower lobe (image 68) is also identified and nonspecific. Smaller scattered noncalcified nodules as well as calcified granuloma in the right lower lobe remain relatively similar to prior examination. No pleural effusion. No pneumothorax. Tracheobronchial tree is patent. No significant adenopathy. Mediastinum demonstrates relatively normal / stable thoracic aorta and heart/pericardium. Surrounding musculoskeletal structures are intact. Right-sided [id number] with tip in the SVC. Impression: 6 mm, 9 mm, and 13 mm soft tissue nodules represent a change from prior examination and suspicious for metastatic disease. PET-CT and/or 3-month follow-up may be warranted. Signed by Saúl Ott MD 10/19/2017 09:46 A
== END ==
LOC: M RAD 14:59
PROVIDERS: ATTEND Internal Medicine Medical Oncology
DX: C54.1 Malignant neoplasm of endometrium (principal); Z92.21 Personal history of antineoplastic chemotherapy; R91.8 Other nonspecific abnormal finding of lung field; N20.0 Calculus of kidney
CPT/HCPCS: 71260; 74178; Q9963; Q9967

== ENCOUNTER → 2017-11-15 | Outpatient (CLI) | payer OTHER ==
[~2017-11-15] MED LIST changes: -GASTROGRAFIN SOLUTION 30ML (Q9963) As Ordered ONE; -ISOVUE-370 76% 100ML VIAL (Q9967) As Ordered ONE
--- NOTE | 2017-11-16 17:53 | REP ---
PET/CT: History: High risk stage III see endometrial carcinoma with rising CA - 125, new pulmonary nodules on CT suspicious for metastatic lesions. She is status post debulking surgery August 2016 with adjuvant chemotherapy and pelvic radiation therapy. Comparisons: Comparison PET-CT study is from April 13, 2017. Comparison chest abdomen pelvis CT exam October 14, 2017 and March 22, 2017. TECHNIQUE: 52 minutes following the intravenous injection of a 9.0 mCi dose of F-18 FDG, three-dimensional PET scintigraphy is acquired from the skull base to the proximal thighs. Triplanar noncontrast CT scanning is acquired through the same anatomic range for attenuation correction, and image registration with scan parameters optimized to minimize radiation exposure to the patient. PET scintigraphy and CT datasets were fused and displayed on a workstation with multiplanar and projection display capability. PET/CT Findings: There is no discernible FDG accumulation in the any of the new pulmonary nodules seen in the lower lobes of the lungs. However, since these are new when compared to the February 2017 they must still be considered suspicious for metastatic disease. Maximum standard uptake value in the larger of these nodules which are all less than a centimeter, is 0.7. There is no abnormal hypermetabolic uptake in the thorax. No adenopathy is seen. Head and neck soft tissues are unremarkable. No abnormal hypermetabolic uptake is seen within the liver or spleen. No adrenal masses seen. No abnormal periaortic hypermetabolic uptake is seen. There is hypermetabolic uptake today in a progressive fashion along the left lateral pelvic side wall where accompanying CT study shows a aparna mass lesion. Maximum standard uptake value in this left pelvic sidewall aparna deposit is 7.6. This lesion has a maximum cranial caudal span of 4.1 cm x 2.1 cm x 2.2 cm. Previously maximum standard uptake value in this aparna focus was 2.1. It previously measured 2.3 x 2.0 cm most recently in transverse dimension. No other abnormal pelvic hypermetabolic uptake. The study is otherwise unremarkable. Impression: Progressive left pelvic sidewall disease with increased hypermetabolic uptake and an increase in size since the last PET CT. Multiple bilateral lower lobe pulmonary nodules are new and therefore considered suspicious for metastatic disease despite the fact that no discernible FDG accumulation is seen within the small sub-centimeter nodules. Signed by Kane Soto MD 11/17/2017 08:02 A
== END ==
LOC: M PLARAD 09:23
PROVIDERS: ATTEND Internal Medicine Medical Oncology
DX: C54.1 Malignant neoplasm of endometrium (principal); R91.8 Other nonspecific abnormal finding of lung field
CPT/HCPCS: 78815; A9552

== ENCOUNTER → 2017-11-23 | Outpatient (REF) | payer OTHER ==
[2017-11-25 09:45] LABS: CA 125 61.9 U/ML (<30.2)
== END ==
LOC: M LAB REF 12:41
DX: C54.1 Malignant neoplasm of endometrium (principal)
CPT/HCPCS: 86304

== ENCOUNTER → 2017-12-30 | Outpatient (REF) | payer OTHER | LOC: M LAB REF 12:16 | DX: C54.1 Malignant neoplasm of endometrium (principal); E07.9 Disorder of thyroid, unspecified | CPT/HCPCS: 84443 ==

== ENCOUNTER → 2018-01-20 | Outpatient (REF) | payer OTHER | LOC: M LAB REF 13:50 | DX: C54.1 Malignant neoplasm of endometrium (principal); Z79.899 Other long term (current) drug therapy | CPT/HCPCS: 84443 ==

== ENCOUNTER → 2018-02-10 | Outpatient (REF) | payer OTHER ==
[2018-02-10 14:04] LABS: THYROID STIMULATING HORMONE 0.155 uIU/ML (0.358-3.740)
[2018-02-10 14:06] LABS: CA 125 41.5 U/ML (<30.2)
== END ==
LOC: M LAB REF 12:45
DX: C54.1 Malignant neoplasm of endometrium (principal)
CPT/HCPCS: 84443

== ENCOUNTER → 2018-03-03 | Outpatient (REF) | payer OTHER ==
[2018-03-03 14:29] LABS: THYROID STIMULATING HORMONE 0.318 uIU/ML (0.358-3.740)
[2018-03-03 14:48] LABS: CA 125 31.2 U/ML (<30.2)
== END ==
LOC: M LAB REF 13:11
DX: C54.1 Malignant neoplasm of endometrium (principal)
CPT/HCPCS: 84443

== ENCOUNTER → 2018-03-24 | Outpatient (REF) | payer OTHER ==
[2018-03-24 12:31] LABS: CA 125 32.9 U/ML (<30.2)
== END ==
LOC: M ONCM 08:55
DX: Z13.29 Encounter for screening for other suspected endocrine disorder (principal); C77.5 Secondary and unspecified malignant neoplasm of intrapelvic lymph nodes; C54.1 Malignant neoplasm of endometrium
CPT/HCPCS: 84443

== ENCOUNTER → 2018-04-04 | Outpatient (CLI) | payer OTHER | LOC: M PLARAD 10:09 | DX: C54.1 Malignant neoplasm of endometrium (principal) | CPT/HCPCS: 78815 ==

== ENCOUNTER → 2018-04-14 | Outpatient (REF) | payer OTHER ==
[2018-04-14 14:17] LABS: CA 125 38.8 U/ML (<30.2)
== END ==
LOC: M LAB REF 12:36
DX: C54.1 Malignant neoplasm of endometrium (principal); Z79.899 Other long term (current) drug therapy
CPT/HCPCS: 84443

== ENCOUNTER → 2018-05-05 | Outpatient (REF) | payer OTHER ==
[2018-05-05 14:11] LABS: CA 125 30.7 U/ML (<30.2)
== END ==
LOC: M LAB REF 13:16
DX: C54.1 Malignant neoplasm of endometrium (principal); Z79.899 Other long term (current) drug therapy
CPT/HCPCS: 84443

== ENCOUNTER 2018-07-11 20:18 | Emergency (ER) | payer OTHER ==
[2018-07-11] MEDS: NS 1,000 ML IV (20:30)
[2018-07-11] MEDS: ONDANSETRON 4MG/2ML VIAL (J2405) IV (20:30)
[2018-07-11] MEDS: KETOROLAC 30 MG/ML VIAL (J1885) IV (20:31)
[2018-07-11 21:01] LABS: BASO % 0.2 % (0.0-1.0); EOS # 0.1 10^3/uL (0.0-0.50); EOS % 0.5 % (0.0-3.0); HEMATOCRIT 39.2 % (36.0-47.0); HEMOGLOBIN 13.3 g/dl (12.0-15.5); IMMATURE GRANULOCYTE % 0.5 % (0-3.0); LYMPH # 0.4 10^3/uL (1.5-4.5); LYMPH % 3.4 % (24.0-44.0); MEAN CORPUSCULAR HEMOGLOBIN 29.8 pg (27.0-33.0); MEAN CORPUSCULAR HGB CONC 33.9 g/dl (32.0-36.5); MEAN CORPUSCULAR VOLUME 87.7 fl (80.0-96.0); MONO # 0.9 10^3/uL (0.0-0.8); NEUTROPHILS # 10.7 10^3/uL (1.8-7.7); NEUTROPHILS % 88.4 % (36.0-66.0); PLATELET COUNT, AUTOMATED 184 10^3/uL (150-450); RED BLOOD COUNT 4.47 10^6/uL (4.00-5.40); RED CELL DISTRIBUTION WIDTH 12.9 % (11.5-14.5); WHITE BLOOD COUNT 12.1 10^3/uL (4.0-10.0)
[2018-07-11 21:30] LABS: ALBUMIN 3.4 GM/DL (3.2-5.2); ALBUMIN/GLOBULIN RATIO 0.97 (1.00-1.93); ALKALINE PHOSPHATASE 97 U/L (45-117); ALT/SGPT 72 U/L (12-78); ANION GAP 10 MEQ/L (8-16); AST/SGOT 44 U/L (7-37); BILIRUBIN,DIRECT 0.2 MG/DL (0.0-0.2); BILIRUBIN,TOTAL 0.5 MG/DL (0.2-1.0); BLOOD UREA NITROGEN 11 MG/DL (7-18); CALCIUM LEVEL 8.9 MG/DL (8.5-10.1); CARBON DIOXIDE LEVEL 23 MEQ/L (21-32); CHLORIDE LEVEL 107 MEQ/L (98-107); CREATININE FOR GFR 0.86 MG/DL (0.55-1.30); GLOMERULAR FILTRATION RATE > 60.0 (>51); GLUCOSE, FASTING 181 MG/DL (70-100); LIPASE 71 U/L (73-393); POTASSIUM SERUM 3.5 MEQ/L (3.5-5.1); SODIUM LEVEL 140 MEQ/L (136-145); TOTAL PROTEIN 6.9 GM/DL (6.4-8.2)
[2018-07-11 22:29] LABS: KETONE, URINE AUTO RFX TRACE mg/dL (NEGATIVE); RBC, URINE AUTO RFX TNTC /HPF (0-3); SPECIFIC GRAVITY UR AUTO RFX 1.022 (1.002-1.035); SQUAM EPITHELIAL CELL UR AURFX 0 /HPF (0-6)
[2018-07-11 22:30] LABS: LEUKOCYTE ESTERASE UR AUTO RFX 3+ (NEGATIVE); NITRITE, URINE AUTO RFX POSITIVE (NEGATIVE); WBC, URINE AUTO RFX TNTC /HPF (0-3)
[2018-07-11] MEDS: CIPROFLOXACIN 500 MG TAB PO (23:12)
== END 2018-07-11 23:17 | disposition home or self-care (01) ==
LOC: M ED 20:18
DX: N10 Acute pyelonephritis (principal); E11.9 Type 2 diabetes mellitus without complications; E03.9 Hypothyroidism, unspecified; F31.9 Bipolar disorder, unspecified; E78.5 Hyperlipidemia, unspecified; F17.210 Nicotine dependence, cigarettes, uncomplicated
CPT/HCPCS: J2405

== ENCOUNTER → 2018-08-03 | Outpatient (REF) | payer OTHER ==
[2018-08-04 13:23] LABS: CA 125 27.5 U/ML (<30.2)
== END ==
LOC: M LAB REF 17:09
DX: C54.1 Malignant neoplasm of endometrium (principal)

== ENCOUNTER → 2018-08-09 | Outpatient (REF) | payer OTHER ==
[2018-08-09 18:49] LABS: MAGNESIUM LEVEL 1.5 MG/DL (1.8-2.4)
== END ==
LOC: M LAB REF 17:38
DX: Z51.12 Encounter for antineoplastic immunotherapy (principal); C54.1 Malignant neoplasm of endometrium; C77.8 Secondary and unspecified malignant neoplasm of lymph nodes of multiple regions; Z13.29 Encounter for screening for other suspected endocrine disorder
CPT/HCPCS: 83735

== ENCOUNTER → 2018-10-24 | Outpatient (CLI) | payer OTHER | LOC: M PLARAD 09:53 | DX: C79.82 Secondary malignant neoplasm of genital organs (principal); R91.1 Solitary pulmonary nodule | CPT/HCPCS: 78815 ==

== ENCOUNTER → 2019-02-28 | Outpatient (CLI) | payer OTHER ==
[~2019-02-28] MED LIST changes: +CENT1TAB PO; +CHOL100013 PO; +CIPR-249 PO; +CRES40TA PO; +GABA-843 PO; +LATU120T PO; +LEVO100T5; +LEVO100T5 PO; +LIPI80TA; +METF500T4 PO; +PHEN-500 PO; +POTA10TA16 PO; +PYRI1TAB5 PO; +VITA100054 PO
--- NOTE | 2019-02-28 13:35 | REP ---
PET/CT: History: Restaging endometrial carcinoma. Comparisons: Comparison PET/CT study October 24, 2018. April 04, 2018 prior PET/CT study is reviewed as well. TECHNIQUE: 50 minutes following the intravenous injection of a 8.95 mCi dose of F-18 FDG, three-dimensional PET scintigraphy is acquired from the skull base to the proximal thighs. Triplanar noncontrast CT scanning is acquired through the same anatomic range for attenuation correction, and image registration with scan parameters optimized to minimize radiation exposure to the patient. PET scintigraphy and CT datasets were fused and displayed on a workstation with multiplanar and projection display capability. PET/CT Findings: There is evidence of progression in the right chest. There is a new small right pleural effusion. There is mildly hypermetabolic uptake diffusely at mid chest level in the pleural fluid. Maximum standard uptake value here is 2.74. There is a right lower lobe mass which has increased in size and avidity. Maximum standard uptake value in this location is 9.05. This measures 2.9 x 4.7 cm in transverse dimension today, previously 2.3 cm in greatest diameter. The previously noted left lower lobe nodule is unchanged in size, 1.7 cm versus 1.6 cm previously. It is no longer hypermetabolic. Maximum standard uptake value in the left lower lobe nodule is 1.6. No other new focus of hypermetabolic uptake is seen. Impression: There is evidence of progression in the right chest with increase in size and avidity in the right lower lobe mass and new pleural fluid and new pleural uptake. Electronically Signed by Kane Soto MD 02/28/2019 02:54 P
== END ==
LOC: M PLARAD 09:20
PROVIDERS: ATTEND Internal Medicine Hematology & Oncology
DX: C54.1 Malignant neoplasm of endometrium (principal); J91.8 Pleural effusion in other conditions classified elsewhere; R91.8 Other nonspecific abnormal finding of lung field
CPT/HCPCS: 78815; A9552

== ENCOUNTER → 2019-03-30 | Outpatient (CLI) | payer OTHER ==
[~2019-03-30] MED LIST changes: +ATIV1TAB10 PO; +LIDOCAINE 1% MDV 20ML VIAL As Ordered ONE; +MEGE40TA GT; +TAMO20TA8 PO; +XARE10TA PO
--- NOTE | 2019-03-30 14:45 | REP ---
CHEST, SINGLE VIEW: Single view of the chest is performed status post right lung biopsy. There is no pneumothorax. There is blunting of the right costophrenic angle. There is a right central venous catheter present. IMPRESSION: No pneumothorax status post right lung biopsy. Electronically Signed by Alex Rivera MD 03/31/2019 02:53 P
--- NOTE | 2019-03-31 15:00 | REP ---
CT-guided right lower lobe lung biopsy The procedure was performed under the direct supervision of Dr. rivera. The patient has a history of A 2.9 x 4.7 cm hypermetabolic mass in the right lower lobe seen on a previous PET scan dated 02/28/2019. The risks and benefits of the procedure were explained to the patient and informed consent was obtained. The right lower lobe lung mass was localized using CT guidance. The skin was prepped and draped in a sterile fashion. 1% lidocaine was used as a local anesthetic. Using CT guidance a 19/20 gauge coaxial needle biopsy system was inserted and advanced into the mass. Five core biopsy samples were obtained and sent to lab. The patient tolerated the procedure well and there were no immediate complications. After the appropriate amount of monitored convalescence the patient was discharged from the department. Reviewed by SARITA Haque 03/30/2019 04:38 P Electronically Signed by Alex Rivera MD 03/31/2019 02:50 P
== END ==
LOC: M RADPRO 08:12
PROVIDERS: ATTEND Internal Medicine Medical Oncology
DX: C78.02 Secondary malignant neoplasm of left lung (principal); Z79.899 Other long term (current) drug therapy; Z88.8 Allergy status to other drugs, medicaments and biological substances; Z91.030 Bee allergy status; Z79.84 Long term (current) use of oral hypoglycemic drugs

== ENCOUNTER → 2019-08-29 | Outpatient (CLI) | payer OTHER ==
[~2019-08-29] MED LIST changes: -LIDOCAINE 1% MDV 20ML VIAL As Ordered ONE; +METF-791 PO; -METF500T4 PO
--- NOTE | 2019-08-29 14:53 | REP ---
PET/CT: History: Restaging endometrial carcinoma. Comparisons: Comparison PET/CT study February 28, 2019. TECHNIQUE: 46 minutes following the intravenous injection of a 8.16 mCi dose of F-18 FDG, three-dimensional PET scintigraphy is acquired from the skull base to the proximal thighs. Triplanar noncontrast CT scanning is acquired through the same anatomic range for attenuation correction, and image registration with scan parameters optimized to minimize radiation exposure to the patient. PET scintigraphy and CT datasets were fused and displayed on a workstation with multiplanar and projection display capability. PET/CT Findings: Head and neck soft tissues are unremarkable. A right-sided Fyuhlp-I-Ghuw catheter is noted. A right pleural effusion is noted. This is somewhat larger today than on February 28, 2019. There is some pleural uptake similar to the prior study with maximum standard uptake value in the right pleural space of 3.09. The right lower lobe pleural-based mass has enlarged farther with heterogeneous peripheral hypermetabolic uptake within it. Maximum standard uptake value 4.96. The lesion measures 6.2 cm in transverse dimension on today's PET/CT. There is a 2 cm nodule in the left lower lobe which has enlarged somewhat. Maximum standard uptake value within this is 2.85. This is mildly hypermetabolic. Previously 1.60. No abnormal hypermetabolic uptake is seen within the liver or the adrenal glands. No abnormal retroperitoneal hypermetabolic uptake is seen. No abnormal pelvic hypermetabolic uptake is observed. Impression: The focus in the right lower lobe and the right pleural effusion are somewhat larger. The left lower lobe nodule has enlarged and become a little more hypermetabolic as well. Electronically Signed by Kane Soto MD 08/29/2019 04:04 P
== END ==
LOC: M PLARAD 07:54
PROVIDERS: ATTEND Internal Medicine Medical Oncology
DX: C54.1 Malignant neoplasm of endometrium (principal)
CPT/HCPCS: 78815; A9552

== ENCOUNTER → 2019-12-25 | Outpatient (CLI) | payer OTHER ==
[~2019-12-25] MED LIST changes: +D 202000 PO; +GASTROGRAFIN SOLUTION 30ML (Q9963) As Ordered ONE; +ISOVUE-370 76% 100ML VIAL (Q9967) As Ordered ONE; +OMEG10002 PO; +ONDA8TAB10 PO; +PROC10TA4 PO
--- NOTE | 2019-12-26 06:39 | REP ---
Clinical: Metastatic endometrial carcinoma. Technique: Axial contrast enhanced images from the thoracic inlet to the upper abdomen with coronal and sagittal re-formations using 100 ml Isovue 370 intravenous contrast material. Comparison: 10/14/2017. Findings: Loculated 7 x 4.2 x 4.5 cm right pleural collection is identified with elements of mural soft tissue and nodularity appearing increased from prior examination. 2.3 cm nodule in the medial left lung base is also increased from prior examination. These findings are consistent with worsening metastatic disease. A small 3 mm nodule along the posterior periphery of the left upper lung zone (image 27) appears somewhat similar to prior examination. A 4 mm perifissural density at the right major fissure (image 57) remains stable. No further acute findings are appreciated. The tracheobronchial tree is patent. No obvious axillary, hilar, or mediastinal adenopathy noted. Thoracic aorta, pulmonary vasculature and heart/pericardium appear normal. Elavxb-F-Xspe identified with tip in the SVC. Osseous structures without focal abnormality noted. Impression: 1. Loculated right pleural collection with elements of mural soft tissue and nodularity as well as nodule in the medial left lung base have increased in size and are consistent with progressive metastatic disease. Electronically Signed by Saúl Ott MD 12/26/2019 06:31 A
--- NOTE | 2019-12-26 06:44 | REP ---
Clinical: Metastatic endometrial carcinoma. Technique: Axial contrast enhanced images from the lung bases to the pubic symphysis using oral (per protocol) and 100 ml Isovue 370 intravenous contrast material with coronal and sagittal re-formations. Delayed images of the abdomen obtained. Comparison: 08/23/2018. Findings: Liver, spleen, pancreas, bilateral adrenal glands and kidneys are essentially normal/stable. Cholelithiasis versus soft tissue in the gallbladder cannot be excluded. The enteric system is without obstruction or acute inflammatory process. Normal terminal ileum and appendix identified in the right lower quadrant. Pelvis demonstrates normal bladder and evidence of prior hysterectomy. No ascites. No adenopathy. No obvious mass lesion. Abdominal aorta and vasculature without aneurysm or dissection. Musculoskeletal structures demonstrate degenerative changes without focal abnormality. Impression: 1. Possible cholelithiasis and less likely soft tissue abnormality in the gallbladder may warrant ultrasound follow-up. 2. No further acute abdominopelvic pathology appreciated. No evidence for metastatic disease or recurrence. Electronically Signed by Saúl Ott MD 12/26/2019 06:35 A
== END ==
LOC: M RAD 12:49
PROVIDERS: ATTEND Internal Medicine Medical Oncology
DX: C54.1 Malignant neoplasm of endometrium (principal)
CPT/HCPCS: 71260; 74177; Q9963; Q9967

== ENCOUNTER → 2020-01-30 | Outpatient (CLI) | payer OTHER ==
[~2020-01-30] MED LIST changes: +CYCL10TA PO; -GASTROGRAFIN SOLUTION 30ML (Q9963) As Ordered ONE; -ISOVUE-370 76% 100ML VIAL (Q9967) As Ordered ONE; +MAGICMW SSP; +NESI12.5 PO; +[UNRECOGNIZED DRUG - CODE] PO
--- NOTE | 2020-01-30 16:12 | ECHO ---
DATE OF PROCEDURE: 01/30/2020 REFERRING PHYSICIAN: Love Barraza MD INDICATION: Tachycardia, unspecified. HEIGHT: 5 feet 6 inches WEIGHT: 218 pounds 2D MEASUREMENTS: Left atrium: 3.4 cm Aortic annulus: 1.9 cm Ventricular septum: 1.03 cm Posterior wall: 1.00 cm Left ventricle diastole: 4.4 cm Proximal ascending aorta: 2.8 cm Inferior vena cava: 1.4 cm DOPPLER MEASUREMENTS: Aortic valve velocity: 138 cm/s LVOT velocity: 103 cm/s No aortic stenosis. No aortic regurgitation. No mitral regurgitation. Mitral E velocity: 42.4 cm/s Mitral A velocity: 60.8 cm/s Mitral deceleration time: 180 ms Trace tricuspid regurgitation. Pulmonary acceleration time: 108 ms MITRAL ANNULAR TISSUE DOPPLER: E prime septal: 5.6 cm/s E prime lateral: 7.5 cm/s DESCRIPTION: Rhythm was sinus. This is a moderately technically difficult echocardiogram. This is a 2D, M-mode, color flow Doppler and pulse wave Doppler examination that included mitral annular tissue Doppler. CONCLUSIONS: 1. Normal left ventricle internal dimensions and wall thickness. Normal regional left ventricle (LV) wall motion and wall thickening. Normal LV systolic function. Left ventricular ejection fraction (LVEF) 60% by visual estimate. Grade 1 LV diastolic dysfunction. 2. Mild aortic valve sclerosis of a three-cuspid aortic valve. No aortic regurgitation. 3. Small pericardial effusion which measured 0.5 cm over the anterior right ventricle free wall. No diastolic chamber collapse. 4. Mild mitral annular calcification. No mitral regurgitation. 5. Presence of a central line tip in the right atrium. 6. Moderately technically difficult echocardiogram.
== END ==
LOC: M CARPUL 10:08
PROVIDERS: ATTEND Internal Medicine Medical Oncology
DX: Z13.29 Encounter for screening for other suspected endocrine disorder (principal); J90 Pleural effusion, not elsewhere classified; C54.1 Malignant neoplasm of endometrium

== ENCOUNTER 2020-02-01 16:50 | Emergency (ER) | payer OTHER ==
[~2020-02-01] VITALS: Ht 167.6 cm; Wt 99.1 kg
[~2020-02-01 16:50] MED LIST changes: -CYCL10TA PO; -NESI12.5 PO
[2020-02-01] MEDS ORDERED: NESI12.5 PO (17:09)
[2020-02-01] MEDS ORDERED: CYCL10TA PO (17:09)
[2020-02-01 17:37] LABS: BASO % 0.2 % (0.0-1.0); EOS # 0.1 10^3/uL (0.0-0.5); EOS % 1.5 % (0.0-3.0); HEMATOCRIT 34.5 % (36.0-47.0); LYMPH % 16.1 % (24.0-44.0); MEAN CORPUSCULAR HEMOGLOBIN 29.7 pg (27.0-33.0); MEAN CORPUSCULAR HGB CONC 31.9 g/dl (32.0-36.5); MEAN CORPUSCULAR VOLUME 93.2 fl (80.0-96.0); MONO # 0.4 10^3/uL (0.0-0.8); MONO % 6.6 % (0.0-5.0); NEUTROPHILS # 4.6 10^3/uL (1.5-8.5); NEUTROPHILS % 74.9 % (36.0-66.0); PLATELET COUNT, AUTOMATED 118 10^3/uL (150-450); WHITE BLOOD COUNT 6.1 10^3/uL (4.0-10.0)
[2020-02-01 17:51] LABS: BLOOD UREA NITROGEN 5 MG/DL (7-18); CALCIUM LEVEL 8.9 MG/DL (8.5-10.1); CARBON DIOXIDE LEVEL 27 MEQ/L (21-32); CHLORIDE LEVEL 108 MEQ/L (98-107); CK-MB VALUE MASS < 1.0 NG/ML (<3.6); CPK CREATINE PHOSPHOKINASE 67 U/L (26-192); CREATININE FOR GFR 0.79 MG/DL (0.55-1.30); GLOMERULAR FILTRATION RATE > 60.0 (>51); GLUCOSE, FASTING 135 MG/DL (70-100); MB/CK RELATIVE INDEX 1.49 (< OR =4); POTASSIUM SERUM 3.1 MEQ/L (3.5-5.1); SODIUM LEVEL 142 MEQ/L (136-145); TROPONIN I < 0.02 NG/ML (< 0.10)
[2020-02-01 18:31] LABS: ALBUMIN 3.7 GM/DL (3.2-5.2); ALT/SGPT 51 U/L (12-78); BILIRUBIN,TOTAL 0.6 MG/DL (0.2-1.0); TOTAL PROTEIN 7.2 GM/DL (6.4-8.2)
--- NOTE | 2020-02-01 18:54 | REP ---
Portable chest x-ray: Single view. History: Dizziness. Comparison chest x-ray: March 30, 2019. Findings: Monitoring electrodes are seen. A right-sided Erjrqi-T-Kqwz catheter is again noted in place unchanged. The lungs are symmetrically aerated and free of infiltrate. Pleural angles are sharp. Heart is not enlarged. There is an eventration of the right hemidiaphragm which is small and unchanged. The pleural angles are sharp. No bony abnormality is seen. Impression: No acute disease. Electronically Signed by Kane Soto MD 02/01/2020 06:46 P
--- NOTE | 2020-02-01 19:04 | REPVR ---
PROCEDURE INFORMATION: Exam: CT Head Without Contrast Exam date and time: 02/01/2020 6:33 PM Age: 59 years old Clinical indication: Dizziness and visual disturbance; Additional info: Dizziness, vision changes, HX CA TECHNIQUE: Imaging protocol: Computed tomography of the head without contrast. Radiation optimization: All CT scans at this facility use at least one of these dose optimization techniques: automated exposure control; mA and/or kV adjustment per patient size (includes targeted exams where dose is matched to clinical indication); or iterative reconstruction. COMPARISON: No relevant prior studies available. FINDINGS: Brain: Normal. No hemorrhage. Unremarkable white matter. No mass effect. Ventricles: Normal. No ventriculomegaly. Bones/joints: Stop skull hyperostosis. Sinuses: Visualized sinuses are unremarkable. No fluid levels. Mastoid air cells: Visualized mastoid air cells are well aerated. Soft tissues: Unremarkable. IMPRESSION: No acute intracranial findings. Electronically signed by: Jasiel Oglesby On 02/01/2020 19:04:09 PM
[2020-02-01 21:09] VITALS: BP 138/70
--- NOTE | 2020-02-02 18:39 | ECGEPIP ---
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
== END 2020-02-01 21:11 | disposition home or self-care (01) ==
LOC: M ED 16:50 → EDBD 16:50 → M ED 21:11
DX: R42 Dizziness and giddiness (principal); C55 Malignant neoplasm of uterus, part unspecified; C79.9 Secondary malignant neoplasm of unspecified site; E07.9 Disorder of thyroid, unspecified; F31.9 Bipolar disorder, unspecified; E11.9 Type 2 diabetes mellitus without complications; E78.5 Hyperlipidemia, unspecified; F17.210 Nicotine dependence, cigarettes, uncomplicated; Z88.6 Allergy status to analgesic agent; Z91.030 Bee allergy status; Z79.899 Other long term (current) drug therapy; Z79.84 Long term (current) use of oral hypoglycemic drugs

== ENCOUNTER 2020-02-12 19:42 | Inpatient (IN) | payer OTHER ==
[~2020-02-12] VITALS: Ht 167.6 cm; Wt 96.7 kg
[~2020-02-12 19:42] MED LIST changes: +CYCL10TA PO; +NESI12.5 PO
[2020-02-12] MEDS ORDERED: NS 1,000 ML IV ONE (20:30)
[2020-02-12 20:33] LABS: HEMATOCRIT 38.6 % (36.0-47.0); HEMOGLOBIN 12.7 g/dl (12.0-15.5); MEAN CORPUSCULAR HEMOGLOBIN 30.5 pg (27.0-33.0); MEAN CORPUSCULAR HGB CONC 32.9 g/dl (32.0-36.5); MEAN CORPUSCULAR VOLUME 92.8 fl (80.0-96.0); PLATELET COUNT, AUTOMATED 108 10^3/uL (150-450); RED BLOOD COUNT 4.16 10^6/uL (4.00-5.40); WHITE BLOOD COUNT 9.7 10^3/uL (4.0-10.0)
[2020-02-12 20:49] LABS: ATYPICAL LYMPH 1 % (0-5); BASOPHILS 1 % (0-1); EOSINOPHILS 1 % (0-3); LYMPHOCYTES 2 % (16-44); MONOCYTES 1 % (0-5); NEUTROPHILS 92 % (28-66)
[2020-02-12 20:52] LABS: OVALOCYTES 1+
[2020-02-12 20:53] LABS: MICROCYTOSIS 1+; PLATELET ESTIMATE DECREASED (NORMAL); TEAR DROP CELLS 2+
[2020-02-12 21:06] LABS: ALT/SGPT 53 U/L (12-78); BILIRUBIN,DIRECT 0.2 MG/DL (0.0-0.2); BILIRUBIN,TOTAL 0.5 MG/DL (0.2-1.0); BLOOD UREA NITROGEN 12 MG/DL (7-18); CALCIUM LEVEL 10.2 MG/DL (8.5-10.1); CARBON DIOXIDE LEVEL 25 MEQ/L (21-32); CHLORIDE LEVEL 105 MEQ/L (98-107); CK-MB VALUE MASS < 1.0 NG/ML (<3.6); CPK CREATINE PHOSPHOKINASE 43 U/L (26-192); CREATININE FOR GFR 0.84 MG/DL (0.55-1.30); GLOMERULAR FILTRATION RATE > 60.0 (>51); GLUCOSE, FASTING 138 MG/DL (70-100); LIPASE 58 U/L (73-393); MAGNESIUM LEVEL 0.9 MG/DL (1.8-2.4); MB/CK RELATIVE INDEX 2.33 (< OR =4); POTASSIUM SERUM 3.5 MEQ/L (3.5-5.1); SODIUM LEVEL 141 MEQ/L (136-145); TROPONIN I < 0.02 NG/ML (< 0.10)
[2020-02-12] MEDS ORDERED: MAG SULF 1GM/100ML (MAG RUN) 1 GM in IV 1 EA IV ONE ×2 (21:15→23:00)
[2020-02-12 21:45] LABS: GLUCOSE, URINE (UA) MANUAL NEGATIVE (NEGATIVE)
[2020-02-12 21:46] LABS: BILIRUBIN, URINE MANUAL OBSCURED (NEGATIVE); KETONE, URINE MANUAL OBSCURED mg/dL (NEGATIVE); UROBILINOGEN, URINE MANUAL OBSCURED mg/dl (NORMAL)
[2020-02-12 21:56] LABS: BACTERIA, URINE SMALL AMOUNT; HYALINE CAST, URINE NONE SEEN /lpf (0-1); SQUAMOUS EPITHELIAL CELL URINE MOD AMOUNT /hpf (SMALL AMT)
[2020-02-12 21:57] LABS: AMORPHOUS SEDIMENT, URINE SMALL AMOUNT (NEGATIVE); MUCUS, URINE MOD AMOUNT (NEGATIVE)
[2020-02-12] MEDS ORDERED: cefTRIAXone SOD 2 GM in D5W MINI-BAG PLUS 50 ML IV ONE (23:15)
[2020-02-12] MEDS ORDERED: POTASSIUM CHLORIDE 10 MEQ SR TABLET PO ONE (23:15)
[2020-02-12] MEDS ORDERED: [UNRECOGNIZED DRUG - CODE] PO (23:39)
[2020-02-12] MEDS ORDERED: CYCL10TA PO (23:39)
[2020-02-12] MEDS ORDERED: NESI12.5 PO (23:39)
[2020-02-12] MEDS ORDERED: CRES40TA PO (23:39)
[2020-02-12] MEDS ORDERED: ACET-897 PO (23:39)
[2020-02-12] MEDS ORDERED: VITMTA PO (23:39)
[2020-02-12] MEDS ORDERED: D32000TA PO (23:39)
[2020-02-13] MEDS: MAG SULF 1GM/100ML (MAG RUN) 1 GM in IV 1 EA IV SCH ×4 (01:31→06:00)
[2020-02-13 01:42] VITALS: BP 148/87
--- NOTE | 2020-02-13 03:26 | HPEPDOC ---
[facility] Medical History & Physical Date of Admission Feb 12, 2020 Date of Service: Feb 12, 2020 Attending Physician: DAVID RODRIGUEZ MD History and Physical CHIEF COMPLAINT: Tachycardia HISTORY OF PRESENT ILLNESS: 59-year-old female with past medical history of schizophrenia, bipolar disorder, uterine cancer with lung metastases on chemotherapy, diabetes mellitus, hypertension and GERD presents from home with tachycardia. She monitors her left home, I notice she was tachycardic. She also reports decreased oral intake and urine output over the past couple of days. She has no other symptoms, she denies any shortness of breath, chest pain, dizziness, palpitations, chest pain, nausea, vomiting, abdominal pain, diarrhea or constipation. In the ER. She is found to have elevated lactate and hypom agnesemia. 10 point review of system is negative except for above PAST MEDICAL HISTORY: 1. Schizophrenia. 2. Bipolar disorder. 3. . Diabetes mellitus. 4. Hypertension. 5. GERD 6. Uterine cancer PAST SURGICAL HISTORY: 1. , Hysterectomy. SOCIAL HISTORY: Smokes 1 pack per day. Denies alcohol use. Denies drug use FAMILY HISTORY: No family history of cancer or heart disease ALLERGIES: Please see below. HOME MEDICATIONS: Please see below. PHYSICAL EXAMINATION: VITAL SIGNS: Please see below. GENERAL: No distress HEENT: Normocephalic, atraumatic, moist mucous membranes NECK: Supple CARDIOVASCULAR EXAMINATION: S1, S2, tachycardic RESPIRATORY EXAMINATION: Clear to auscultation, no wheezing ABDOMINAL EXAMINATION: Soft, nontender, nondistended, positive bowel sounds EXTREMITIES: Range of motion intact SKIN: No rash NEUROLOGICAL EXAMINATION: Alert and oriented 3, no focal deficits PSYCHIATRIC EXAMINATION: Calm and cooperative LABORATORY DATA: See below. IMAGING: Chest x-ray without acute pathology MICROBIOLOGY: Please see below. ASSESSMENT: 59-year-old female with multiple medical comorbidities. His peak admitted for UTI, hypomagnesemia, and dehydration. PLAN: 1. Hypomagnesemia. Possibly related to chemotherapy, supplemented IV, will monitor and supplement as needed. 2. UTI. Ceftriaxone, cultures pending, IV hydration. 3. Uterine cancer. With lung metastases, on carboplatin. 4. Diabetes mellitus. Sliding scale insulin with meals and at bedtime 5. Schizophrenia/bipolar disorder. Continue home Fanapt DVT prophylaxis: Lovenox. GI prophylaxis: Not needed Vital Signs Vital Signs Date Time Temp Pulse Resp B/P (MAP) Pulse Ox O2 Delivery O2 Flow Rate FiO2 02/13/20 00:00 104 16 168/94 (118) 96 Room Air 02/12/20 19:43 98.2 Laboratory Data Labs 24H Laboratory Tests 2 02/12/20 20:14: Immature Granulocyte % (Auto) , Neutrophils (%) (Auto) , Nucleated Red Blood Cells % (auto) 0.0, Neutrophils 92H, Band Neutrophils 2, Lymphocytes (Manual) 2L, Monocytes (Manual) 1, Eosinophils (Manual) 1, Basophils (Manual) 1, Atypical Lymphocytes 1, Microcytosis 1+, Tear Drop Cells 2+, Ovalocytes 1+, Platelet Estimate DECREASED, Anion Gap 11, Glomerular Filtration Rate > 60.0, Lactic Acid Level 2.5*H, Calcium Level 10.2H, Magnesium Level 0.9*L, Total Bilirubin 0.5, Direct Bilirubin 0.2, Aspartate Amino Transf (AST/SGOT) 47H, Alanine Aminotransferase (ALT/SGPT) 53, Alkaline Phosphatase 112, Total Creatine Kinase 43, Creatine Kinase MB < 1.0, Creatine Kinase MB Relative Index 2.33, Troponin I < 0.02, Total Protein 7.0, Albumin 4.0, Albumin/Globulin Ratio 1.33, Lipase 58L, Thyroid Stimulating Hormone (TSH) 8.000H 02/12/20 21:12: Urine Color (KAREN) ORANGEH, Urine Appearance (KAREN) HAZYH, Urine pH (KAREN) OBSCUREDH, Urine Specific [place] (KAREN) 1.036H, Urine Protein 3+H, Bedside Urine Glucose (UA) NEGATIVE, Bedside Urine Ketones (LAB) OBSCUREDH, Bedside Urine Blood POSITIVEH, Bedside Urine Nitrite (LAB) OBSCUREDH, Bedside Urine Bilirubin (LAB) OBSCUREDH, Bedside Urine Urobilinogen (LAB) OBSCUREDH, Bedside Urine Leukocyte Esterase (L OBSCUREDH, Urine Sediment Examination PERFORMED, Urine RBC 3-5H, Urine WBC 40-50, Urine Squamous Epithelial Cells MOD AMOUNTH, Urine Amorphous Sediment SMALL AMOUNTH, Urine Bacteria SMALL AMOUNTH, Urine Hyaline Casts NONE SEEN, Urine Mucus MOD AMOUNTH 02/13/20 00:49: Lactic Acid Followup at 4 Hours 2.5*H 02/13/20 01:14: Bedside Glucose (Misc Panel) 142H CBC/BMP Laboratory Tests 02/12/20 20:14 Microbiology Microbiology 02/12/20 Blood Culture, Received Pending 02/12/20 Urine Culture, Received Pending 02/12/20 Blood Culture, Received Pending Home Medications Scheduled Alogliptin Benzoate (Nesina) 12.5 Mg Tablet, 12.5 MG PO DAILY Cholecalciferol (Vitamin D3) (Vitamin D3) 50 Mcg Tablet, 50 MCG PO BID Iloperidone (Fanapt) 12 Mg Tablet, 36 MG PO BID Metformin HCl (Metformin HCl ER) 500 Mg Tab, 500 MG PO WM Multivitamins (Thera M Plus Tablet) 1 Each Tablet, 1 TAB PO BID Phenazopyridine HCl (Pyridium) 200 Mg Tablet, 200 MG PO TID Potassium Chloride (Potassium Chloride) 10 Meq Tab, 20 MEQ PO BID Rosuvastatin Calcium (Crestor) 40 Mg Tablet, 40 MG PO QHS Scheduled PRN Acetaminophen (Tylenol Extra Strength) 500 Mg Tablet, 1,500 MG PO DAILY PRN for PAIN Cyclobenzaprine HCl (Cyclobenzaprine HCl) 10 Mg Tablet, 10 MG PO TID PRN for MUSCLE SPASMS Allergies Coded Allergies: bee venom protein (honey bee) (Verified Allergy, Unknown, 02/12/20) aspirin (Verified Adverse Reaction, Unknown, sensitive, 02/12/20) A-FIB/CHADSVASC A-FIB History Current/History of A-Fib/PAF?: No DAVID RODRIGUEZ MD Feb 13, 2020 03:26
[2020-02-13] MEDS ORDERED: CYCLOBENZAPRINE 10 MG TAB PO PRN (03:30)
[2020-02-13] MEDS ORDERED: GLUCOSE 4 GM CHEW TABLET PO PRN (03:30)
[2020-02-13] MEDS ORDERED: DEXTROSE 50% 50 ML SYRINGE IV PRN (03:30)
[2020-02-13] MEDS ORDERED: GLUCAGON FOR INJ 1 MG VIAL (J1610) SC PRN (03:30)
[2020-02-13 06:00] VITALS: BP 104/63
[2020-02-13] MEDS ORDERED: ENOXAPARIN 40 MG/0.4 ML SYRINGE (J1650) SC SCH (06:00)
[2020-02-13 07:00] LABS: HEMATOCRIT 32.7 % (36.0-47.0); MEAN CORPUSCULAR HEMOGLOBIN 30.6 pg (27.0-33.0); MEAN CORPUSCULAR HGB CONC 32.1 g/dl (32.0-36.5); MEAN CORPUSCULAR VOLUME 95.3 fl (80.0-96.0); RED BLOOD COUNT 3.43 10^6/uL (4.00-5.40); WHITE BLOOD COUNT 5.7 10^3/uL (4.0-10.0)
[2020-02-13 07:10] LABS: ALBUMIN 3.1 GM/DL (3.2-5.2); ALT/SGPT 38 U/L (12-78); BILIRUBIN,TOTAL 0.2 MG/DL (0.2-1.0); BLOOD UREA NITROGEN 8 MG/DL (7-18); CALCIUM LEVEL 8.9 MG/DL (8.5-10.1); CARBON DIOXIDE LEVEL 26 MEQ/L (21-32); CHLORIDE LEVEL 109 MEQ/L (98-107); CREATININE FOR GFR 0.53 MG/DL (0.55-1.30); GLOMERULAR FILTRATION RATE > 60.0 (>51); GLUCOSE, FASTING 130 MG/DL (70-100); MAGNESIUM LEVEL 2.4 MG/DL (1.8-2.4); POTASSIUM SERUM 3.4 MEQ/L (3.5-5.1); SODIUM LEVEL 140 MEQ/L (136-145); TOTAL PROTEIN 6.2 GM/DL (6.4-8.2)
--- NOTE | 2020-02-13 07:21 | REP ---
Clinical: Lower chest and abdominal pain . Comparison: 02/01/2020 . Technique: PA and lateral. Findings: The mediastinum and cardiac silhouette are normal. Brkfob-O-Guqs identified with tip in the SVC. The lung morejon are clear and without acute consolidation, effusion, or pneumothorax. The skeletal structures are intact and normal. Impression: 1. No acute cardiopulmonary process. Electronically Signed by Saúl Ott MD 02/13/2020 07:12 A
[2020-02-13 07:25] LABS: HEMOGLOBIN 10.5 g/dl (12.0-15.5); PLATELET COUNT, AUTOMATED 79 10^3/uL (150-450)
[2020-02-13] MEDS ORDERED: POTASSIUM CHLORIDE 10 MEQ SR TABLET PO ONE (09:00)
[2020-02-13] MEDS ORDERED: ENTER DRUG NAME HERE (PATIENT'S OWN MED) PO SCH (09:00)
[2020-02-13] MEDS: HumaLOG INSULIN (NovoLOG) PER UNIT SC SCH ×3 (09:15→17:57)
[2020-02-13] MEDS: MULTIVITAMINS/MINERALS THERAP 1 TAB PO SCH ×2 (09:15→21:50)
--- NOTE | 2020-02-13 12:09 | ECGEPIP ---
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
[2020-02-13 14:00] VITALS: BP 125/66
[2020-02-13] MEDS ORDERED: cefTRIAXone SOD 2 GM in D5W MINI-BAG PLUS 50 ML IV SCH (21:00)
[2020-02-13] MEDS ORDERED: ROSUVASTATIN 10 MG TAB (CRESTOR) PO SCH (21:00)
[2020-02-13] MEDS ORDERED: HumaLOG INSULIN (NovoLOG) PER UNIT SC SCH (21:00)
[2020-02-13 22:00] VITALS: BP 142/96
[2020-02-14] MEDS ORDERED: diphenhydrAMINE 25 MG CAP PO ONE (00:15)
[2020-02-14 06:00] VITALS: BP 94/58
[2020-02-14 06:01] LABS: HEMATOCRIT 29.4 % (36.0-47.0); HEMOGLOBIN 9.6 g/dl (12.0-15.5); MEAN CORPUSCULAR HEMOGLOBIN 31.3 pg (27.0-33.0); MEAN CORPUSCULAR HGB CONC 32.7 g/dl (32.0-36.5); MEAN CORPUSCULAR VOLUME 95.8 fl (80.0-96.0); RED BLOOD COUNT 3.07 10^6/uL (4.00-5.40); WHITE BLOOD COUNT 3.6 10^3/uL (4.0-10.0)
[2020-02-14 06:05] LABS: PLATELET COUNT, AUTOMATED 67 10^3/uL (150-450)
[2020-02-14 06:20] LABS: BLOOD UREA NITROGEN 5 MG/DL (7-18); CALCIUM LEVEL 8.9 MG/DL (8.5-10.1); CARBON DIOXIDE LEVEL 26 MEQ/L (21-32); CHLORIDE LEVEL 112 MEQ/L (98-107); CREATININE FOR GFR 0.56 MG/DL (0.55-1.30); GLOMERULAR FILTRATION RATE > 60.0 (>51); GLUCOSE, FASTING 103 MG/DL (70-100); MAGNESIUM LEVEL 1.2 MG/DL (1.8-2.4); POTASSIUM SERUM 3.6 MEQ/L (3.5-5.1); SODIUM LEVEL 143 MEQ/L (136-145)
[2020-02-14 06:25] VITALS: BP 129/72
[2020-02-14 06:43] LABS: ATYPICAL LYMPH 3 % (0-5); BASOPHILS 3 % (0-1); EOSINOPHILS 4 % (0-3); LYMPHOCYTES 24 % (16-44); MONOCYTES 5 % (0-5); NEUTROPHILS 60 % (28-66)
[2020-02-14 06:45] LABS: ANISOCYTOSIS 1+; OVALOCYTES 1+; PLATELET ESTIMATE DECREASED (NORMAL); POIKILOCYTOSIS 1+; TEAR DROP CELLS 1+
[2020-02-14] MEDS: HumaLOG INSULIN (NovoLOG) PER UNIT SC SCH (07:30)
[2020-02-14] MEDS: MULTIVITAMINS/MINERALS THERAP 1 TAB PO SCH (08:20)
[2020-02-14] MEDS: MAG SULF 1GM/100ML (MAG RUN) 1 GM in IV 1 EA IV SCH ×2 (08:21→09:40)
[2020-02-14] MEDS ORDERED: ATENOLOL 12.5MG PER 1/2 TABLET PO SCH (09:00)
[2020-02-14] MEDS ORDERED: CEFD1CAP8 PO (09:08)
[2020-02-14 09:41] VITALS: BP 127/76
--- NOTE | 2020-02-14 14:52 | IPNPDOC ---
Text Note Date of Service The patient was seen on 02/13/20. NOTE SUBJECTIVE: No complaints this morning. PHYSICAL EXAMINATION: VITAL SIGNS: Please see below. GENERAL: No distress HEENT: Normocephalic, atraumatic, moist mucous membranes NECK: Supple CARDIOVASCULAR EXAMINATION: S1, S2, tachycardic RESPIRATORY EXAMINATION: Clear to auscultation, no wheezing ABDOMINAL EXAMINATION: Soft, nontender, nondistended, positive bowel sounds EXTREMITIES: Range of motion intact SKIN: No rash NEUROLOGICAL EXAMINATION: Alert and oriented 3, no focal deficits PSYCHIATRIC EXAMINATION: Calm and cooperative LABORATORY DATA: See below. IMAGING: Chest x-ray without acute pathology MICROBIOLOGY: Please see below. ASSESSMENT: 59-year-old female with past medical history of schizophrenia, bipolar disorder, refractory endometrial cancer from 2016 with lung metastases on chemotherapy ( last t/t on 02/08/20) diabetes mellitus, hypertension and GERD presents from home with tachycardia. She monitors her pulse at home, and noticed she was tachycardic. She also reports decreased oral intake and decreased urine output over the past couple of days. She has no other symptoms, she denies any shortness of breath, chest pain, dizziness, palpitations, chest pain, nausea, vomiting, abdominal pain, diarrhea or constipation. In the ER. She is found to h ave elevated lactate and hypomagnesemia and a dirty UA. She was admitted for UTI, hypomagnesemia, and dehydration. Hypomagnesemia. replaced Hypokalemia will replace UTI. Ceftriaxone, cultures pending, IV hydration. Thrombocytopenia chemotherapy related. stop lovenox Metastatic endometrial With lung metastases, on carboplatin. Diabetes mellitus. Sliding scale insulin with meals and at bedtime Schizophrenia/bipolar disorder. Continue home Fanapt Hyperlipidemia on statin VS,Fishbone, I+O VS, Fishbone, I+O Laboratory Tests 02/12/20 20:14 02/13/20 06:14 Vital Signs Date Time Temp Pulse Resp B/P (MAP) Pulse Ox O2 Delivery O2 Flow Rate FiO2 02/13/20 06:00 98.0 96 18 104/63 (77) 92 Room Air I&O- Last 24 Hours up to 6 AM 02/13/20 06:00 Intake Total 1250 ml Output Total 0 ml Balance 1250 ml ERICKA SAUER MD Feb 13, 2020 07:50
--- NOTE | 2020-02-14 14:58 | DS.PDOC ---
Discharge Summary General Date of Admission Feb 12, 2020 at 23:14 Date of Discharge 02/14/20 Discharge Summary PROCEDURES PERFORMED DURING STAY: [None]. DISCHARGE DIAGNOSES: Sinus tachycardia possibly due to malignancy Cystitis Hypomagnesemia Hypokalemia Chemotherapy related thrombocytopenia. SECONDARY DIAGNOSIS: Schizophrenia, Bipolar disorder, refractory endometrial cancer from 2016 with lung metastases on chemotherapy ( last t/t on 02/08/20) diabetes mellitus, hypertension and GERD , hyperlipidemia, obesity COMPLICATIONS/CHIEF COMPLAINT: Bipolar D/O, Endometrial Cancer, Hypomagnesemia. HISTORY OF PRESENT ILLNESS: See history and physical HOSPITAL COURSE: 59-year-old female with past medical history of schizophrenia, bipolar disorder, refractory endometrial cancer from 2016 with lung metastases on chemotherapy ( last t/t on 02/08/20) diabetes mellitus, hypertension and GERD presents from home with tachycardia. She monitors her pulse at home, and noticed she was tachycardic. She also reports decreased oral intake and decreased urine output over the past couple of days. She has no other symptoms, she denies any shortness of breath, chest pain, dizziness, palpitations, chest pain, nausea, vomiting, abdominal pain, diarrhea or constipation. In the ER. She is found to have elevated lactate and hypomagnesemia and a dirty UA. She was admitted for UTI, hypomagnesemia, and dehydration. Hypomagnesemia. replaced Hypokalemia will replace UTI. Ceftriaxone, cultures pending, IV hydration. Thrombocytopenia chemotherapy related. stop lovenox Metastatic endometrial With lung metastases, on carboplatin. Diabetes mellitus. Sliding scale insulin with meals and at bedtime Schizophrenia/bipolar disorder. Continue home Fanapt Hyperlipidemia on statin DISCHARGE MEDICATIONS: Please see below. ALLERGIES: Please see below. PHYSICAL EXAMINATION ON DISCHARGE: VITAL SIGNS: Please see below. GENERAL: No distress HEENT: Normocephalic, atraumatic, moist mucous membranes NECK: Supple CARDIOVASCULAR EXAMINATION: S1, S2, tachycardic RESPIRATORY EXAMINATION: Clear to auscultation, no wheezing ABDOMINAL EXAMINATION: Soft, nontender, nondistended, positive bowel sounds EXTREMITIES: Range of motion intact SKIN: No rash NEUROLOGICAL EXAMINATION: Alert and oriented 3, no focal deficits PSYCHIATRIC EXAMINATION: Calm and cooperative LABORATORY DATA: Please see below. ACTIVITY: [As tolerated]. DIET: Carb consistent DISPOSITION: 01 Home, Self-Care. DISCHARGE INSTRUCTIONS: Follow up PMD in 2 weeks DISCHARGE CONDITION: [Stable]. TIME SPENT ON DISCHARGE: 35 minutes. Vital Signs/I&Os Vital Signs Date Time Temp Pulse Resp B/P (MAP) Pulse Ox O2 Delivery O2 Flow Rate FiO2 02/14/20 09:41 100 127/76 02/14/20 06:00 97.4 16 95 Room Air I&O- Last 24 Hours up to 6 AM 02/14/20 05:59 Intake Total 2820 ml Output Total 600 ml Balance 2220 ml Laboratory Data Labs 24H Laboratory Tests 2 02/13/20 17:05: Bedside Glucose (Misc Panel) 143H 02/13/20 20:00: Bedside Glucose (Misc Panel) 169H 02/14/20 05:33: Immature Granulocyte % (Auto) , Neutrophils (%) (Auto) , Nucleated Red Blood Cells % (auto) 0.0, Neutrophils 60, Band Neutrophils 1, Lymphocytes (Manual) 24, Monocytes (Manual) 5, Eosinophils (Manual) 4H, Basophils (Manual) 3H, Atypical Lymphocytes 3, Poikilocytosis 1+, Anisocytosis 1+, Tear Drop Cells 1+, Ovalocytes 1+, Platelet Estimate DECREASED, Anion Gap 5L, Glomerular Filtration Rate > 60.0, Calcium Level 8.9, Magnesium Level 1.2L CBC/BMP Laboratory Tests 02/14/20 05:33 FSBS Laboratory Tests Test 02/13/20 17:05 02/13/20 20:00 Range/Units Bedside Glucose (Misc Panel) 143 169 70-105 MG/DL Microbiology Microbiology 02/12/20 Blood Culture - Preliminary, Resulted No growth after 24 hours . All specim... 02/12/20 Urine Culture - Final, Complete 02/12/20 Blood Culture - Preliminary, Resulted No growth after 24 hours . All specim... Discharge Medications Scheduled Alogliptin Benzoate (Nesina) 12.5 Mg Tablet, 12.5 MG PO DAILY, (Reported) Cefdinir (Cefdinir) 300 Mg Capsule, 300 MG PO BID Cholecalciferol (Vitamin D3) (Vitamin D3) 50 Mcg Tablet, 50 MCG PO BID, (Repor harvey) Iloperidone (Fanapt) 12 Mg Tablet, 36 MG PO BID, (Reported) Metformin HCl (Metformin HCl ER) 500 Mg Tab, 500 MG PO WM, (Reported) Multivitamins (Thera M Plus Tablet) 1 Each Tablet, 1 TAB PO BID, (Reported) Phenazopyridine HCl (Pyridium) 200 Mg Tablet, 200 MG PO TID, (Reported) Potassium Chloride (Potassium Chloride) 10 Meq Tab, 20 MEQ PO BID, (Reported) Rosuvastatin Calcium (Crestor) 40 Mg Tablet, 40 MG PO QHS, (Reported) Scheduled PRN Acetaminophen (Tylenol Extra Strength) 500 Mg Tablet, 1,500 MG PO DAILY PRN for PAIN, (Reported) Cyclobenzaprine HCl (Cyclobenzaprine HCl) 10 Mg Tablet, 10 MG PO TID PRN for MUSCLE SPASMS, (Reported) Allergies Coded Allergies: bee venom protein (honey bee) (Verified Allergy, Unknown, 02/12/20) aspirin (Verified Adverse Reaction, Unknown, sensitive, 02/12/20) ERICKA SAUER MD Feb 14, 2020 14:58
== END 2020-02-14 11:45 | disposition home health service (06) | DRG 641 ==
LOC: M ED 19:42 → M ED INP 23:14 → ENRESERV 23:48 → M MSPAV 02-13 01:06
PROVIDERS: ADMIT Internal Medicine; ATTEND Internal Medicine Nephrology
DX: E83.42 Hypomagnesemia (principal); N39.0 Urinary tract infection, site not specified; C78.00 Secondary malignant neoplasm of unspecified lung; N30.90 Cystitis, unspecified without hematuria; E11.9 Type 2 diabetes mellitus without complications; F20.9 Schizophrenia, unspecified; F31.9 Bipolar disorder, unspecified; I10 Essential (primary) hypertension; E87.6 Hypokalemia; K21.9 Gastro-esophageal reflux disease without esophagitis; D69.59 Other secondary thrombocytopenia; C55 Malignant neoplasm of uterus, part unspecified; R00.0 Tachycardia, unspecified; E66.9 Obesity, unspecified; F17.200 Nicotine dependence, unspecified, uncomplicated; Z79.84 Long term (current) use of oral hypoglycemic drugs; Z79.899 Other long term (current) drug therapy; Z88.6 Allergy status to analgesic agent; Z91.030 Bee allergy status; T45.1X5A Adverse effect of antineoplastic and immunosuppressive drugs, initial encounter; Z68.34 Body mass index [BMI] 34.0-34.9, adult

== ENCOUNTER → 2020-03-14 | Outpatient (CLI) | payer OTHER ==
[~2020-03-14] MED LIST changes: +ACET-897 PO; +CEFD1CAP8 PO; +CYCL-707 PO; -CYCL10TA PO; +D32000TA PO; +GASTROGRAFIN SOLUTION 30ML (Q9963) As Ordered ONE; +ISOVUE-370 76% 100ML VIAL (Q9967) As Ordered ONE; +SYNT100T PO; +VITMTA PO
--- NOTE | 2020-03-14 18:01 | REP ---
CT CHEST WITH IV CONTRAST: TECHNIQUE: Axial contrast enhanced images from the thoracic inlet to the upper abdomen using 100 mL Isovue 370 intravenous contrast material with multiplanar reformations. COMPARISON: Comparison CT 12/25/2019. The mass in the right posterior costophrenic sulcus is mildly decreased in size. Current measurements are approximately 6.9 x 3.7 cm, previously 7.5 x 4.4 cm. A nodule in the posteromedial left costophrenic sulcus has also mildly decreased in size. Current measurements are 1.6 x 1.1 cm, previously 2.0 x 1.3 cm. No new nodule is seen bilaterally. There is a calcified granuloma in the right costophrenic angle. Another is seen in the left upper lobe. No suspicious axillary, mediastinal or hilar adenopathy is seen. Partially calcified subcarinal lymph node is present. Heart is normal in size. There is no pleural effusion. There is mild pericardial fluid/thickening which is new. This is predominantly anteriorly located. There are degenerative changes of the spine. There is no definite bone lesion. IMPRESSION: Mild decrease in size of an oval mass in the right posterior costophrenic sulcus as well as of a nodule in the posteromedial left costophrenic sulcus. No new nodule or adenopathy. New mild anterior pericardial fluid or thickening. Electronically Signed by Alex Rivera MD 03/17/2020 10:49 A
--- NOTE | 2020-03-15 06:49 | REP ---
CT ABDOMEN AND PELVIS WITH ORAL AND IV CONTRAST: TECHNIQUE: Axial contrast enhanced images from the lung bases to the pubic symphysis using 100 mL Isovue 370 intravenous contrast material with multiplanar reformations. COMPARISON: 12/25/2019 FINDINGS: There is mild hepatosplenomegaly, unchanged. The length of the liver is approximately 19 cm. Length of the spleen is approximately 15.6 cm. There is a calcified splenic granuloma present. No liver mass is seen. There may be some ill-defined density in the dependent portion of the gallbladder, possibly sludge. Adrenal glands are normal. Pancreas demonstrates no mass. Kidneys are unremarkable with no hydronephrosis. There is mild atherosclerotic calcification of the abdominal aorta without aneurysm. There is no adenopathy, free air or free fluid. No bowel wall thickening is seen. The appendix is normal. No pelvic mass is seen. Urinary bladder is mildly distended. It was not optimally evaluated. There are degenerative changes of the spine and hips. IMPRESSION: Mild hepatosplenomegaly, unchanged. No suspicious abdominal mass or adenopathy. Electronically Signed by Alex Rivera MD 03/17/2020 10:51 A
== END ==
LOC: M RAD 12:09
PROVIDERS: ATTEND Internal Medicine Medical Oncology
DX: C54.1 Malignant neoplasm of endometrium (principal)
CPT/HCPCS: 71260; 74177; Q9963; Q9967

== ENCOUNTER 2020-04-30 16:54 | Emergency (ER) | payer OTHER ==
[~2020-04-30] VITALS: Ht 167.6 cm; Wt 88.0 kg
[~2020-04-30 16:54] MED LIST changes: +GABA-282 PO; -GABA-843 PO; -GASTROGRAFIN SOLUTION 30ML (Q9963) As Ordered ONE; -ISOVUE-370 76% 100ML VIAL (Q9967) As Ordered ONE; -METF-791 PO; +METF-838 PO
[2020-04-30 18:33] LABS: VENOUS BASE EXCESS -1.5 (-2.0-2.0); VENOUS HCO3 22.2 MEQ/L (23.0-27.0); VENOUS O2 SATURATION 94.8 % (60.0-80.0); VENOUS PARTIAL PRESSURE CO2 34.2 mmHg (38.0-50.0); VENOUS PARTIAL PRESSURE O2 75.5 mmHg (30.0-50.0); VENOUS STANDARD HCO3 23.2 MEQ/L; VENOUS TOTAL CO2 23.2 MEQ/L (24.0-28.0)
[2020-04-30 18:47] LABS: HEMATOCRIT 36.7 % (36.0-47.0); HEMOGLOBIN 12.1 g/dl (12.0-15.5); MEAN CORPUSCULAR HEMOGLOBIN 31.7 pg (27.0-33.0); MEAN CORPUSCULAR VOLUME 96.1 fl (80.0-96.0); RED BLOOD COUNT 3.82 10^6/uL (4.00-5.40); WHITE BLOOD COUNT 4.4 10^3/uL (4.0-10.0)
[2020-04-30 18:48] LABS: PLATELET COUNT, AUTOMATED 75 10^3/uL (150-450)
[2020-04-30 18:59] LABS: INR 1.09; PROTHROMBIN TIME 13.8 SECONDS (11.8-14.0)
[2020-04-30 19:05] LABS: BLOOD UREA NITROGEN 10 MG/DL (7-18); CALCIUM LEVEL 8.9 MG/DL (8.5-10.1); CARBON DIOXIDE LEVEL 24 MEQ/L (21-32); CHLORIDE LEVEL 110 MEQ/L (98-107); CREATININE FOR GFR 0.69 MG/DL (0.55-1.30); GLOMERULAR FILTRATION RATE > 60.0 (>51); GLUCOSE, FASTING 100 MG/DL (70-100); POTASSIUM SERUM 3.8 MEQ/L (3.5-5.1); SODIUM LEVEL 143 MEQ/L (136-145)
[2020-04-30] MEDS ORDERED: ISOVUE-370 76% 100ML VIAL As Ordered ONE (19:16)
--- NOTE | 2020-04-30 20:11 | REPVR ---
PROCEDURE INFORMATION: Exam: CT Angiography Chest With Contrast Exam date and time: 04/30/2020 7:30 PM Age: 59 years old Clinical indication: Cough with hemorrhage TECHNIQUE: Imaging protocol: Computed tomographic angiography of the chest with intravenous contrast. 3D rendering: MIP and/or 3D reconstructed images were created by the technologist. Radiation optimization: All CT scans at this facility use at least one of these dose optimization techniques: automated exposure control; mA and/or kV adjustment per patient size (includes targeted exams where dose is matched to clinical indication); or iterative reconstruction. Contrast material: ISOVUE 370; Contrast volume: 75 ml; Contrast route: IV; COMPARISON: CT Chest with contrast 03/14/2020 1:54 PM FINDINGS: Pulmonary arteries: Normal. No pulmonary emboli. Aorta: Unremarkable. No aortic aneurysm. No aortic dissection. Lungs: 6 mm nodule in the right middle lobe. The mass in the right posterior lung base measuring 4.7 x 6.2 x 6.1 cm([id number]), previously measuring 3.7 x 6.3 x 5.3 cm. Nodule at the left lung base measures 1.7 cm, previously 1.5 cm. Pleural space: Unremarkable. No pneumothorax. No pleural effusion. Heart: Unremarkable. No cardiomegaly. No pericardial effusion. Lymph nodes: Unremarkable. No enlarged lymph nodes. Bones/joints: Unremarkable. No acute fracture. Soft tissues: Unremarkable. IMPRESSION: Minimal increase in size of the right lung base mass. Minimal increase in the size of left lung base nodule. No adenopathy. Electronically signed by: Be Cowart On 04/30/2020 20:10:55 PM
[2020-04-30 20:45] VITALS: BP 148/84
--- NOTE | 2020-04-30 22:55 | REP ---
REASON FOR EXAM: Hemoptysis. COMPARISON: 02/12/2020 There is a new opacity in the right lower lobe. This has rounded margins and is almost hump-like in appearance, measuring approximately 6.4 x 3.7 cm. The lung morejon are otherwise clear and unchanged on this limited portable chest. There is a central venous catheter, which is unchanged, the tip of which is in the superior vena cava. The heart is not enlarged. The pleural angles are sharp. There is no change in the osseous structures. IMPRESSION: There is a smoothly marginated mass-like density in the right lower lung field, as described above. It has appeared abruptly since 02/12/2020. Its smooth margins mitigate against acute pneumonia, which cannot be excluded, nor can round atelectasis; however, I am concerned that this might be an early sign of pulmonary embolism, and I would recommend CT angiogram of the chest at this time. Electronically Signed by Raymond Aldridge DO 05/01/2020 02:31 P
--- NOTE | 2020-05-02 13:59 | ED PDOC ---
Post-Departure Follow-Up dr munson and dr rodriguez faxed formal report of cxr for fu amilcarg Jason Bartholomew MD May 02, 2020 13:59
[2020-05-26] MEDS ORDERED: SERO1TAB3 PO (10:42)
[2020-05-26] MEDS ORDERED: INVE3TAB2 PO (10:42)
[2020-07-16] MEDS ORDERED: CLON0.25 PO (13:17)
[2020-07-16] MEDS ORDERED: QUET50TA3 PO (13:17)
[2020-07-16] MEDS ORDERED: SULF1TAB93 PO (13:17)
[2020-07-16] MEDS ORDERED: MAGN400C2 PO (13:18)
[2020-08-21] MEDS ORDERED: FERR325T3 PO (12:55)
[2020-08-22] MEDS ORDERED: LENV10CA PO (09:04)
[2020-09-12] MEDS ORDERED: OXYC-517 PO (13:12)
[2020-12-29] MEDS ORDERED: SENO8.6T10 PO (09:32)
== END 2020-04-30 21:08 | disposition home or self-care (01) ==
LOC: M ED 16:54
DX: R04.2 Hemoptysis (principal); C34.90 Malignant neoplasm of unspecified part of unspecified bronchus or lung; G43.909 Migraine, unspecified, not intractable, without status migrainosus; E78.00 Pure hypercholesterolemia, unspecified; E11.9 Type 2 diabetes mellitus without complications; E03.9 Hypothyroidism, unspecified; F31.9 Bipolar disorder, unspecified; F41.9 Anxiety disorder, unspecified; F20.9 Schizophrenia, unspecified; J45.909 Unspecified asthma, uncomplicated; F17.200 Nicotine dependence, unspecified, uncomplicated; Z88.6 Allergy status to analgesic agent; Z91.030 Bee allergy status; Z79.84 Long term (current) use of oral hypoglycemic drugs; Z79.899 Other long term (current) drug therapy
CPT/HCPCS: 36415; 71045; 71275; 80048; 82803; 85027; 85049; 85055; 85610; 99284; Q9967

== ENCOUNTER → 2020-07-23 | Outpatient (CLI) | payer OTHER ==
[~2020-07-23] MED LIST changes: +CLON0.25 PO; +FERR325T3 PO; -GABA-282 PO; +GABA-843 PO; +INVE3TAB2 PO; +ISOVUE-370 76% 100ML VIAL As Ordered ONE; +LENV10CA PO; +MAGN400C2 PO; +OXYC-517 PO; +QUET5TAB PO; +SERO1TAB3 PO; +SULF1TAB93 PO
--- NOTE | 2020-08-28 08:18 | REP ---
CT CHEST WITH I.V. CONTAST: REPEAT DICTATION. STUDY DATE 07/23/20 AT 4:35PM HISTORY: Re-staging endometrial carcinoma. COMPARISON: Ct studies are reviewed from 04/30/2020 and 03/14/2020. Comparison PET CT study 08/29/19. This study was presented to me for repeat dictation on 08/14/2020. CT CONTRAST DOSE: 75ml of intravenous Isovue [address] FINDINGS: Preliminary digital flavorings compounder radiographs demonstrates a right sided [id number]-s-[id number] catheter. Splenomegaly is again observed. The spleen measures 15cm in greatest transverse dimension. No focal splenic or hepatic lesion is seen. There is a small amount of pericardial fluid again noted, unchanged. There is a tiny amount of pleural fluid adjacent to a pleural based mass in the right posterior pleural angle. This mass has enlarged somewhat since the prior study and currently measures 8.5 x 5.0cm. By my measurement, its transverse measurements were 7.1 x 4.0cm on 04/30/2020. Similarly, the nodule deposit in the left lower lobe posteromedial gutter measures 2.3 x 1.3cm in transverse dimension today, previously 1.7cm in greatest dimension. This is also enlarged. There are scattered granulomatous calcifications and granulomatous lymph node calcifications which are unchanged. No new mediastinal or hilar adenopathy is observed. There is a benign appearing subpleural nodule in the right middle lobe along the minor fissure which is unchanged. No new pulmonary nodule or mass lesion is observed. No extra thoracic mass or adenopathy is seen. No bony destructive lesion is seen. No focal liver or adrenal lesion is observed. IMPRESSION: There is evidence of some progression in the right posterior pleural angle a mass and in the nodule in the left lower lobe in the interval since the most recent prior study of 04/30/20. MTDD
== END ==
LOC: M RAD 16:02
PROVIDERS: ATTEND Internal Medicine Medical Oncology
DX: R91.8 Other nonspecific abnormal finding of lung field (principal); Z85.42 Personal history of malignant neoplasm of other parts of uterus
CPT/HCPCS: 71260; Q9967

== ENCOUNTER 2020-08-31 16:00 | Emergency (ER) | payer OTHER ==
[~2020-08-31] VITALS: Ht 167.6 cm; Wt 86.4 kg
[~2020-08-31 16:00] MED LIST changes: -ISOVUE-370 76% 100ML VIAL As Ordered ONE; -OXYC-517 PO
[2020-08-31] MEDS ORDERED: NS 1,000 ML IV ONE (17:00)
[2020-08-31] MEDS ORDERED: ONDANSETRON 4MG/2ML VIAL IV ONE (17:00)
[2020-08-31 17:29] LABS: BASO % 0.2 % (0.0-1.0); EOS % 0.7 % (0.0-3.0); HEMATOCRIT 37.8 % (36.0-47.0); HEMOGLOBIN 11.8 g/dl (12.0-15.5); LYMPH # 0.4 10^3/uL (1.5-5.0); LYMPH % 7.2 % (24.0-44.0); MEAN CORPUSCULAR HEMOGLOBIN 27.3 pg (27.0-33.0); MEAN CORPUSCULAR HGB CONC 31.2 g/dl (32.0-36.5); MEAN CORPUSCULAR VOLUME 87.5 fl (80.0-96.0); MONO # 0.3 10^3/uL (0.0-0.8); MONO % 5.6 % (0.0-5.0); NEUTROPHILS # 4.9 10^3/uL (1.5-8.5); NEUTROPHILS % 85.8 % (36.0-66.0); RED BLOOD COUNT 4.32 10^6/uL (4.00-5.40); WHITE BLOOD COUNT 5.7 10^3/uL (4.0-10.0)
[2020-08-31 17:32] LABS: PLATELET COUNT, AUTOMATED 84 10^3/uL (150-450)
[2020-08-31 17:59] LABS: ALT/SGPT 26 U/L (12-78); BILIRUBIN,DIRECT 0.2 MG/DL (0.0-0.2); BILIRUBIN,TOTAL 0.5 MG/DL (0.2-1.0); BLOOD UREA NITROGEN 10 MG/DL (7-18); CALCIUM LEVEL 9.2 MG/DL (8.5-10.1); CARBON DIOXIDE LEVEL 26 MEQ/L (21-32); CHLORIDE LEVEL 108 MEQ/L (98-107); CREATININE FOR GFR 0.68 MG/DL (0.55-1.30); GLOMERULAR FILTRATION RATE > 60.0 (>51); GLUCOSE, FASTING 127 MG/DL (70-100); POTASSIUM SERUM 3.7 MEQ/L (3.5-5.1); SODIUM LEVEL 142 MEQ/L (136-145); TOTAL PROTEIN 6.7 GM/DL (6.4-8.2)
--- NOTE | 2020-08-31 18:47 | REPVR ---
PROCEDURE INFORMATION: Exam: CT Abdomen And Pelvis With Contrast Exam date and time: 08/31/2020 6:21 PM Age: 59 years old Clinical indication: Abdominal pain TECHNIQUE: Imaging protocol: Computed tomography of the abdomen and pelvis with intravenous contrast. Radiation optimization: All CT scans at this facility use at least one of these dose optimization techniques: automated exposure control; mA and/or kV adjustment per patient size (includes targeted exams where dose is matched to clinical indication); or iterative reconstruction. Contrast material: ISOVUE 370; Contrast volume: 100 ml; Contrast route: INTRAVENOUS (IV); COMPARISON: CT ABD PELVIS WITH CONTRAST 03/14/2020 1:54 PM FINDINGS: Lungs: 6 mm noncalcified nodule right middle lobe. Finding likely postinflammatory. Calcified granuloma right lower lobe. Centrally necrotic mass in the right lower lobe is increased in size now measuring 5.3 x 7.9 x 6.3 cm. Liver: There is a diffuse decrease in hepatic parenchymal density, consistent with steatosis. Gallbladder and bile ducts: Normal. No calcified stones. No ductal dilation. Pancreas: Normal. No ductal dilation. Spleen: There is moderate splenomegaly with a maximum span of 17 centimeters. No focal abnormalities demonstrated. Adrenals: There is bilateral adrenal hyperplasia. Kidneys and ureters: Nonobstructive left renal calculus. Stomach and bowel: Diffusely thickened small bowel loops throughout the abdomen. Findings which may indicate the presence of acute enteritis. Other etiologies including ischemia and inflammatory bowel disease to be excluded clinically. Boggy appearance of the entire colon suggestive of acute or subacute colitis. Appendix: No evidence of appendicitis. Intraperitoneal space: There is a small amount of free intraperitoneal fluid present. Vasculature: The aortoiliac vessels demonstrate mild atherosclerotic calcification. Lymph nodes: Unremarkable. No enlarged lymph nodes. Urinary bladder: Diffuse thickening of the bladder wall likely related to incomplete distention. Reproductive: Unremarkable as visualized. Bones/joints: moderate to severe central spinal stenosis L2-L3, severe central spinal stenosis L3-L4 and L4-L5. Soft tissues: Unremarkable. IMPRESSION: 1. 6 mm noncalcified nodule right middle lobe. Finding likely postinflammatory. For patients at low risk (minimal or absent history of smoking and of other known risk factors), no routine follow-up is indicated. For patients at high risk (history of smoking or of other known risk factors), consider optional CT Chest at 12 months. (Reference: [place]) References: Isadora Wilkerson et al. Guidelines for Management of Incidental Pulmonary Nodules Detected on CT Images: From the Fleischner Society 2017. Radiology. 2017;284(1):228-243. 2. Centrally necrotic mass in the right lower lobe is increased in size now measuring 5.3 x 7.9 x 6.3 cm. 3. There is a small amount of free intraperitoneal fluid present. 4. There is a diffuse decrease in hepatic parenchymal density, consistent with steatosis. 5. There is moderate splenomegaly with a maximum span of 17 centimeters. No focal abnormalities demonstrated. 6. There is bilateral adrenal hyperplasia. 7. Nonobstructive left renal calculus. 8. Diffusely thickened small bowel loops throughout the abdomen. Findings which may indicate the presence of acute enteritis. Other etiologies including ischemia and inflammatory bowel disease to be excluded clinically. 9. Boggy appearance of the entire colon suggestive of acute or subacute colitis. Electronically signed by: Jasiel Oglesby On 08/31/2020 18:47:10 PM
[2020-08-31 20:21] VITALS: BP 132/89
[2020-09-12] MEDS ORDERED: OXYC-517 PO (13:12)
== END 2020-08-31 20:40 | disposition home or self-care (01) ==
LOC: M ED 16:00
DX: R11.2 Nausea with vomiting, unspecified (principal); R19.7 Diarrhea, unspecified; R10.9 Unspecified abdominal pain; G89.29 Other chronic pain; C79.82 Secondary malignant neoplasm of genital organs; Z88.6 Allergy status to analgesic agent; Z91.030 Bee allergy status; Z79.899 Other long term (current) drug therapy; Z79.84 Long term (current) use of oral hypoglycemic drugs; Z79.2 Long term (current) use of antibiotics
CPT/HCPCS: 74177; 80048; 80076; 85025; 85049; 85055; 87507; 96374; 99284; J2405

== ENCOUNTER → 2020-10-03 | Outpatient (CLI) | payer OTHER ==
[~2020-10-03] MED LIST changes: +OXYC-517 PO
--- NOTE | 2020-10-03 17:11 | REP ---
INDICATION: ASCITES, STAGE IV UTERINE CA. COMPARISON: 08/31/2020, 03/14/2020 CT abdomen pelvis TECHNIQUE: Noncontrast scanning through the abdomen with coronal and sagittal reconstructions FINDINGS: Lung bases show right lower lobe deep sulcus mass 8.1 cm in transverse diameter. Previously measured 8.7 cm. In the medial basal segment of the left lower lobe abutting the pleura and just behind the aorta another solid lesion 3 cm long and unchanged. There is some pericardial effusion. The heart is not grossly enlarged. There is a small hiatal hernia. Liver has a maximum diameter of the 16 as 0.5 cm in midclavicular line not grossly enlarged but the left hepatic lobe is enlarged and slightly lobulated. There is splenomegaly the spleen having a maximum vertical diameter of 17.8 cm previously 17.1 cm. No discrete hepatic or splenic lesion but there has developed large amount of ascites significant progress from the very small amount on the previous study 1 month ago. This is seen around both liver and spleen extending down the peritoneal gutters and into the leaves of the mesentery. Gallbladder is without calcified stone or mass pancreas grossly unremarkable adrenal glands intact kidneys show a non obstructing stone in the upper pole on the left. There is no hydronephrosis or hydroureter in these images. Atherosclerotic calcifications abdominal aorta without aneurysm. No pathologic sized periaortic adenopathy. Small bowel loops difficult to evaluate because of ascites. There may be some wall thickening. There is generalized anasarca in the subcutaneous fat suggesting low serum albumin and liver failure. Bone windows show minor degenerative changes in the lumbar spine without destructive lesions or compression deformity some facet arthropathy in the lower lumbar spine. Visualized ribs intact. IMPRESSION: 1. Interval development of a marked amount of ascites throughout the abdomen surrounding the liver and spleen and extending the peritoneal gutters and through the upper abdomen in the leaves of the mesentery. This is a dramatic change from 1 month ago with only a small amount of ascites in the upper abdomen. 2. Right lower lobe and left lower lobe metastatic masses similar to study 1 month ago, no effusion. Some chronic scarring in the right middle lobe unchanged. 3. Some pericardial effusion noted. Bowel loops are difficult to evaluate with abundant fluid. Small bowel lo of may be thickened in this patient with anasarca, chronic liver disease and new extensive the ascites. <Electronically signed by Jalen Glasgow > 10/03/20 [id number]
== END ==
LOC: M RAD 16:07
PROVIDERS: ATTEND Internal Medicine
DX: C55 Malignant neoplasm of uterus, part unspecified (principal); R18.8 Other ascites; K44.9 Diaphragmatic hernia without obstruction or gangrene; I31.3 Pericardial effusion (noninflammatory); C78.01 Secondary malignant neoplasm of right lung; R16.1 Splenomegaly, not elsewhere classified; C78.02 Secondary malignant neoplasm of left lung; N20.0 Calculus of kidney; I70.0 Atherosclerosis of aorta; K76.9 Liver disease, unspecified

== ENCOUNTER → 2020-10-09 | Outpatient (CLI) | payer OTHER ==
[~2020-10-09] MED LIST changes: +LIDOCAINE 1% MDV 20ML VIAL As Ordered ONE; +SODIUM BICARBONATE 8.4% INJ 50MEQ 50 ML VIAL As Ordered ONE
[2020-10-09 15:25] VITALS: BP 116/65
--- NOTE | 2020-10-09 17:32 | REP ---
INDICATION: ASCITES, THERAPUTIC PARACENTESIS COMPARISON: None. TECHNIQUE: The procedure was performed by Dr. Peña under the personal supervision of SARITA Mai, under the direct supervision of Dr. Soto The risks and benefits of the procedure were explained to the patient and an informed consent was obtained both verbally and written. Directly prior to the start of the procedure a formal time-out was completed in the procedure room. The largest pocket of fluid was localized in the right flank using ultrasound guidance. The skin was prepped and draped in a sterile fashion. Eleven ML of buffered lidocaine was used as a local anesthetic. An 8-Grenadian multi side-hole catheter was inserted using trocar technique. FINDINGS: 8300 mL solid yellow ascites fluid was removed, 500 mL were sent to the lab for further analysis, and the rest was discarded. The patient tolerated the procedure well and there were no immediate complications. After the appropriate amount of monitored convalescence, the patient was discharged from the department. IMPRESSION: Ultrasound-guided paracentesis with removal of 8300 mL of ascites. <Electronically signed by Brenna Power > 10/09/20 [id number] <Electronically signed by Zurdo Soto > 10/09/20 [id number]
== END ==
LOC: M IRPRO 12:59
PROVIDERS: ATTEND Internal Medicine Medical Oncology
DX: C54.1 Malignant neoplasm of endometrium (principal); R18.0 Malignant ascites; E11.9 Type 2 diabetes mellitus without complications; I10 Essential (primary) hypertension; Z91.030 Bee allergy status; Z88.8 Allergy status to other drugs, medicaments and biological substances

== ENCOUNTER → 2020-10-10 | Outpatient (CLI) | payer OTHER ==
[~2020-10-10] MED LIST changes: -LIDOCAINE 1% MDV 20ML VIAL As Ordered ONE; -SODIUM BICARBONATE 8.4% INJ 50MEQ 50 ML VIAL As Ordered ONE
--- NOTE | 2020-10-10 15:10 | RADONC.CN ---
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 She is seen for consideration of palliative RT to the lung lesion for hemoptysis and pain control. Diagnosis/Treatment History Oncologic History Per Dr. Ramirez's recent note: Metastatic endometrial carcinoma, MSI high, BRAF negative, ER positive, HER2 negative. TREATMENT HISTORY: JEANMARIE-BSO 08/2016: [id number]. 2016 recurrence, dominant L pelvic mass, right lung mass Carboplatin/paclitaxel six cycles 11/16/2016 - 03/01/2017 Adjuvant pelvic radiation 45 Gy in 25 fractions 04/27/2017 - 06/02/2017 Pembrolizumab 12/30/2017 - 03/15/2019; major [facility], followed by lung progression pleural based lung biopsy 03/30/2019 consistent with metastatic poorly di fferentiated adenocarcinoma, ER positive, PAX8 positive, [facility], TTF1, Napsin A negative consistent with metastatic adenocarcinoma of endometrial primary. Tamoxifen/megestrol February 2019 - Aug 2019, [facility] followed by progression Carboplatin/paclitaxel/bevacizumab six cycles 09/11/2019-02/29/2020. Paclitaxel dropped cycle 6 due to peripheral neuropathy. Maintenance bevacizumab 03/24/2020 to 07/07/2020 stopped for worsening hemoptysis and disease progression. CURRENT THERAPY: Pembrolizumab started 09/12/2020 and lenvatinib started 08/2020 for disease progression based on CT chest 07/23/2020 showing disease progression in lung/chest metastases. Recent data: 10/03/20 CT abdomen pelvis Large volume malignant ascites RLL mass >8cm abutting/invading pleura/CW. RLL lobar bronchus extends into mass 10/10/20 Paracentesis draining 8L ascites Cytology pending Interval History Reports she has had intermittent small volume hemoptysis off and on for several months. Recently has only been occasional with specks of blood. At worst it was blood streaked sputum and subcentimeter clots. She also has aching pain in the midthorax posteriorly in the region of the mass. No positional quality, no exacerbating or alleviating factors. She has had SOB and MERCER feels this has improved markedly s/p paracentesis. She has no abdominal pain at present. She lost 17 lbs with paracentesis. Past Medical History: Schizophrenia/bipolar disorder DMII GERD HPL HTN menses @ 17 Post menopausal @ 53 Past Surgical History: Hysterectomy PAC 2016 Paracentesis 10/09/20 Family History: Brother - brain tumor Social History: Current smoker 23 pk year Occasionally drinks alcohol Asbestos exposure history Allergies / Meds Allergies: Coded Allergies: bee venom protein (honey bee) (Verified Allergy, Unknown, 02/12/20) aspirin (Verified Adverse Reaction, Unknown, sensitive, 02/12/20) Home Meds Active Scripts Lenvatinib Mesylate (Lenvima) 1 Each Capsule, 20 MG PO DAILY, #60 CAP 1 Refill 10 mg tab take 2 tabs by mouth daily Prov:LINWOOD RAMIREZ MD 08/22/20 Ferrous Sulfate (Ferrous Sulfate) 325 Mg Tablet.dr, 325 MG PO 3XW, #60 TAB Take 1 TAB by mouth Mondays, Wednesdays and Fridays Prov:LINWOOD RAMIREZ MD 08/21/20 Reported Medications Oxycodone HCl (Oxycodone HCl) 5 Mg Tablet, 1 TAB PO Q4HP PRN for pain MDD 2 Tablet(s) for 5 Days, #10 TAB 09/12/20 Magnesium Oxide (Magnesium) 400 Mg Capsule, 400 MG PO BID for constipation for 30 Days, #60 CAP 07/16/20 Sulfamethoxazole/Trimethoprim (Sulfamethoxazole-Tmp Ds Tablet) 1 Each Tablet, 1 TAB PO DAILY, TAB 07/16/20 Clonazepam (Clonazepam) 0.25 Mg Tab.rapdis, 0.25 MG PO PRN, TAB 07/16/20 Quetiapine Fumarate (Quetiapine Fumarate) 50 Mg Tablet, 50 MG PO QPM for 30 Days, #30 TAB 07/16/20 Paliperidone (Invega) 3 Mg Tab.er.24, 1 TAB PO QHS 05/26/20 Levothyroxine Sodium (Synthroid) 100 Mcg Tablet, 1 TAB PO DAILY for 30 Days, #30 TAB 02/29/20 Rosuvastatin Calcium (Crestor) 40 Mg Tablet, 40 MG PO QHS, TAB 02/12/20 Acetaminophen (Tylenol Extra Strength) 500 Mg Tablet, 1500 MG PO DAILY PRN for PAIN, TAB 02/12/20 Cyclobenzaprine HCl (Cyclobenzaprine HCl) 10 Mg Tablet, 10 MG PO TID PRN for MUSCLE SPASMS, TAB 02/12/20 Cholecalciferol (Vitamin D3) (Vitamin D3) 50 Mcg Tablet, 50 MCG PO BID, TAB 02/12/20 Alogliptin Benzoate (Nesina) 12.5 Mg Tablet, 12.5 MG PO DAILY, TAB 02/12/20 Potassium Chloride (Potassium Chloride) 10 Meq Tab, 20 MEQ PO BID, TAB 12/05/18 Discontinued Reported Medications Multivitamins (Thera M Plus Tablet) 1 Each Tablet, 1 TAB PO BID, TAB 02/12/20 Metformin HCl (Metformin HCl ER) 500 Mg Tab, 500 MG PO TID 07/11/18 Review of Systems Constitutional: Reports: Fatigue, Weight Loss; Denies: Chills, Fever, Weakness Eyes: Denies: Pain, Vision change HEENT: Denies: Head Aches, Sore Throat Skin: Denies: Rash Pulmonary: Reports: Dyspnea, Cough; Denies: Pleuritic Chest Pain Cardiovascular: Reports: Orthopnea; Denies: Chest Pain, Palpitations Gastrointestinal: Denies: Nausea, Vomiting, Abdominal Pain Genitourinary: Denies: Dysuria, Frequency Hematologic: Denies: Bruising Endocrine: Denies: Polydipsia, Polyuria Musculoskeletal: Reports: Back pain, Joint pain; Denies: Neck pain, Leg pain Neurological: Denies: Weakness, Numbness, Change in Speech Psych: Reports: Mood Normal; Denies: Anxiety Vital Signs Ht 66" Wt 204 lb BMI 33 T 97.1 P 110 RR 18 BP 146/96 O2 97% Pain 2 Fatigue 2 General Exam: Positive: Alert, Cooperative, No Acute Distress Eye Exam: Positive: PERRLA, EOMI ENT EXAM: Positive: Mucous membr. moist/pink, Pharynx Normal Neck Exam: Negative: Thyromegaly, Lymphadenopathy Chest Exam: Positive: Clear to auscultation, Diminished (Diminished right base); Negative: Rales, Rhonchi, Wheezing Heart Exam: Positive: Rate Normal, Regular Rhythm Abdomen Exam: Positive: Normal bowel sounds, Soft; Negative: Tenderness Extremity Exam: Negative: Edema Skin Exam: Positive: Nl turgor and temperature Neuro Exam: Positive: Normal Gait, Cranial Nerves 3-12 NL Psych Exam: Positive: Mental status NL, Mood NL, Oriented x 3 Other Physical Findings Musculoskeletal: Tender to palpation in the right CVA and paraspinal musculature Diagnostic and Laboratory Diagnostic Review Radiologic images, relevant labs and pathology reports were personally reviewed and discussed with Ms. Orellana. Assessment and Plan Impression Ms. 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 She is seen for consideration of palliative RT to the lung lesion for hemoptysis and pain control. Stage Stage IV endometrial cancer with peritoneal mets and large RLL met Performance Status ECOG 1 Plan We had an extensive discussion with Ms. Orellana regarding the diagnosis at hand and available therapeutic options. She has a growing RLL lung mass which has a lobar airway traveling into it and is the likely source of her hemoptysis as well as her right sided back pain. I think she would benefit from palliative RT to the is mass. I would give 30 Gy in 10 fractions due to to eh sized of her lesion and relatively good performance status. I will use a 3D planning approach and daily image guidance to ensure alignment for treatment. I explained that this is for symptom control and not to affect prognosis. I reviewed possible side effects of treatment including fatigue, nausea due to proximity to the liver in the basal aspect of right lung), and rarely pneumonitis. We discussed the logistics of receiving radiation therapy in detail including the need for a 1-time planning session. She has had prior pelvic RT in 2017 so she is quite familiar with the process. After discussing the risks, benefits and alternatives to radiation therapy, Ms. Orellana was amenable to pursuing radiotherapy. All questions were answered to the patient's satisfaction. We instructed the patient that if there were any questions,concerns or changes in clinical status in the interim to contact us. Recommendations Palliative RT to the RLL mass 30 Gy in 10 fractions Simulation in the coming week YOVANNY CARNEY MD Oct 10, 2020 15:10
== END ==
LOC: M ONCR 12:58
PROVIDERS: ATTEND General Practice
DX: C54.1 Malignant neoplasm of endometrium (principal)

== ENCOUNTER 2020-10-16 14:11 | Outpatient (RCR) | payer OTHER ==
[2020-10-18] MEDS ORDERED: FERR1TAB8 PO (00:27)
[2020-10-18] MEDS ORDERED: TROS20TA3 PO (00:39)
[2020-10-18] MEDS ORDERED: ONDA8TAB10 PO (00:39)
== END 2020-10-27 ==
LOC: M ONCR 14:11
PROVIDERS: ATTEND General Practice
DX: C78.01 Secondary malignant neoplasm of right lung (principal)

== ENCOUNTER 2020-10-17 16:52 | Inpatient (IN) | payer OTHER ==
[~2020-10-17] VITALS: Ht 167.6 cm; Wt 89.5 kg
[2020-10-17] MEDS ORDERED: ONDANSETRON 4MG/2ML VIAL IV ONE (19:00)
[2020-10-17] MEDS ORDERED: NS 1,000 ML IV ONE (19:00)
[2020-10-17 19:31] LABS: BASO % 0.2 % (0.0-1.0); EOS % 0.5 % (0.0-3.0); HEMATOCRIT 43.1 % (36.0-47.0); HEMOGLOBIN 13.4 g/dl (12.0-15.5); LYMPH # 0.3 10^3/uL (1.5-5.0); LYMPH % 6.7 % (24.0-44.0); MEAN CORPUSCULAR HEMOGLOBIN 26.9 pg (27.0-33.0); MEAN CORPUSCULAR HGB CONC 31.1 g/dl (32.0-36.5); MEAN CORPUSCULAR VOLUME 86.4 fl (80.0-96.0); MONO # 0.4 10^3/uL (0.0-0.8); MONO % 8.8 % (0.0-5.0); NEUTROPHILS # 3.5 10^3/uL (1.5-8.5); NEUTROPHILS % 83.6 % (36.0-66.0); RED BLOOD COUNT 4.99 10^6/uL (4.00-5.40); WHITE BLOOD COUNT 4.2 10^3/uL (4.0-10.0)
[2020-10-17 19:32] LABS: PLATELET COUNT, AUTOMATED 62 10^3/uL (150-450)
[2020-10-17 20:01] LABS: ALBUMIN 2.7 GM/DL (3.2-5.2); BILIRUBIN,DIRECT 0.3 MG/DL (0.0-0.2); BILIRUBIN,TOTAL 0.7 MG/DL (0.2-1.0); TOTAL PROTEIN 6.4 GM/DL (6.4-8.2)
[2020-10-17] MEDS ORDERED: ISOVUE-370 76% 100ML VIAL As Ordered ONE (20:27)
[2020-10-17] MEDS ORDERED: PROMETHAZINE INJ 25 MG/ML VIAL (J2550) IV ONE (21:00)
--- NOTE | 2020-10-17 22:05 | REPVR ---
PROCEDURE INFORMATION: Exam: CT Abdomen And Pelvis With Contrast Exam date and time: 10/17/2020 8:41 PM Age: 59 years old Clinical indication: Abdominal pain; Generalized; Additional info: Constipation/abd pain TECHNIQUE: Imaging protocol: Computed tomography of the abdomen and pelvis with intravenous contrast. Radiation optimization: All CT scans at this facility use at least one of these dose optimization techniques: automated exposure control; mA and/or kV adjustment per patient size (includes targeted exams where dose is matched to clinical indication); or iterative reconstruction. Contrast material: ISOVUE 370; Contrast volume: 100 ml; Contrast route: INTRAVENOUS (IV); COMPARISON: CT ABD/PEL W/IV CONTRAST ONLY 08/31/2020 6:13 PM FINDINGS: Lungs: There is a calcified granuloma at the right lung base. At the posterior right lung base there is a 7.1 cm x 5.5 cm oval mass that is solid and cystic and increased since 12/25/2019 consistent with a area of metastasis to the right lung base. There is also an oval collection at the posterior left lung base measuring 3 cm x 2 cm and increased in size by approximately 1 cm since 12/25/2019 consistent with an area metastasis. Heart: The heart is normal in size. There is a small to moderate-sized pericardial effusion loculated anteriorly which has developed since the previous examination of 08/31/2020. Mediastinal space: There is a moderate-sized sliding-type hiatal hernia. Liver: There is uniform enhancement of the liver. Gallbladder and bile ducts: There is distention of the gallbladder with distal septation. Normal common bile duct. Pancreas: Normal pancreas. Spleen: There is moderate 2 severe hepatomegaly and there has been continued increase in size of the spleen since November. Adrenal glands: Mild bilateral adrenal hypertrophy. Kidneys and ureters: There is opacification of both kidneys. There is no evidence of hydronephrosis. There is a calcified stone upper pole left kidney/nonobstructive. Stomach and bowel: There is moderate constipation. There are secretions throughout the small bowel and scattered air-fluid levels consistent with ileus. Intraperitoneal space: Since the examination of 08/31/2020 there has been interval development of a massive amount of ascites through the abdomen and pelvis and this is most consistent with malignant ascites in a patient with a history of endometrial carcinoma. . Striated appearance of the anterior mesentery probably secondary to lymphangitic spread carcinoma or edema. Vasculature: There is opacification of the SMV and the SMA. There is opacification of the aorta which is normal in size. Lymph nodes: Unremarkable. No enlarged lymph nodes. Urinary bladder: Normal appearing urinary bladder. Reproductive: Patient is status post hysterectomy. Bones/joints: There is sclerosis of the facet joints lower lumbar spine. Anterior osteophyte formation is also noted thoracic region and lumbar region. Soft tissues: There is prominent subcutaneous edema abdomen and pelvis that has developed since 08/31/2020. IMPRESSION: 1. Since 08/31/2020 there has been development of massive ascites through the abdomen and pelvis most consistent with malignant ascites in a patient with previous endometrial carcinoma. 2. 7 cm oval mass at the posterior right lung base and 3 cm oval mass left lung base. Mass on the right is mixed solid and cystic. These are most consistent with metastatic lesions at the lung bases which have mildly increased since November. 3. Interval development of subcutaneous edema through the abdomen and pelvis. 4. Moderate constipation. 5. Severe splenomegaly developing since November. 6. Secretions through the small bowel with air-fluid levels consistent with ileus. 7. Striated appearance of the anterior mesentery probably secondary to lymphangitic spread of carcinoma or edema. Electronically signed by: Isaiah Jackson On 10/17/2020 22:04:58 PM
[2020-10-18] MEDS ORDERED: FERR1TAB8 PO (00:27)
[2020-10-18] MEDS ORDERED: TROS20TA3 PO (00:39)
[2020-10-18] MEDS ORDERED: ONDA8TAB10 PO (00:39)
--- NOTE | 2020-10-18 01:13 | HPEPDOC ---
[facility] Medical History & Physical Date of Admission Oct 18, 2020 Date of Service: Oct 18, 2020 Attending Physician: ROSE RANDALL MD History and Physical CHIEF COMPLAINT: Abdominal pain/distention, N/V HISTORY OF PRESENT ILLNESS: Patient is a 59-year-old female, past medical history significant for metastatic endometrial carcinoma, schizophrenia/bipolar, NIDDM, GERD, hypothyroid, who presents to the emergency department with chief complaint of abdominal pain, distention and N/V. Patient reports that she is been unable to have a bowel movement in over one week. She states that this began when she received a therapeutic paracenteses on 10/09/20 in which 8300 L of fluid was removed. Reporting worsening nausea and vomiting with intermittent flatus. Upon presentation, patient is afebrile, tachycardic with a heart rate of 126, respiratory rate 20, blood pressure 141/88 maintaining an oxygen saturation of 96% on room air. Laboratory evaluation demonstrates a WBC of 4.2, H/H of 13.4/43.1. Thrombocytosis with a platelet count of 62. Sodium of 135, potassium of 4. BUN/Cr of 8/1.3. Slight elevation of direct bilirubin at 0.3, AST/ALT within normal limits. Mild elevation of alkaline phosphatase of 205. Slight hypoalbuminemia of 0.7. Abdomen/pelvis CT consistent with small bowel obstruction versus ileus, malignant ascites and metastatic disease. Emergency department discussed case with on-call surgeon, who recommended NPO, IVF and to hold off on inserting an NG tube. Hospitalist was contacted him at the patient for ongoing management of her ileus and malignant ascites. PAST MEDICAL HISTORY: Endometrial carcinoma with metastatic disease Mood disorder, schizophrenia versus bipolar NIDDM Hypertension GERD Hypothyroid Overactive bladder PAST SURGICAL HISTORY: Hysterectomy SOCIAL HISTORY: Patient is single, she lives locally in her own apartment. She reports occasional nicotine use, approximately one pack per month She very rarely drinks alcohol, reports a total of 4 beers this calendar year. 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 FAMILY HISTORY: Father: Significant mental illness, undiagnosed Mother: Thyroid problems Siblings: Brother diagnosed with an unknown brain cancer Denies any known family history of colon, breast, prostate or pancreatic cancer ALLERGIES: Aspirin, Bee venom REVIEW OF SYSTEMS: CONSTITUTIONAL: Denies any recent fevers, chills, night sweats. She does not check her weight regularly but reports her weight has remained subjectively stable. Baseline fatigue. HEENT: Intermittent headaches, nothing new in the last week. Intermittent ear fullness though that his baseline. Denies any ear pain or changes in her hearing. No vision changes. No nasal congestion or rhinorrhea. No difficulty swallowing. CARDIOVASCULAR: Denies any chest pain or palpitations. Reports improving lower extremity swelling and edema following recent paracentesis RESPIRATORY: Denies any shortness of breath, cough, wheeze GASTROINTESTINAL: Reports persistent abdominal fullness, dull, achy pain in both upper quadrants bilaterally. As mentioned above, patient has not had a bowel movement in 7 days. She has been nauseous with intermittent vomiting. She does report intermittent flatus. GENITOURINARY: Patient reports that she has been urinating over the last week without any changes and urgency frequency. She denies dysuria. SKIN: Denies any new or changing skin lesions, no new rashes MUSCULOSKELETAL: No new muscle aches or pains NEUROLOGICAL: Denies any numbness or tingling in her hands and arms feel legs, PSYCHIATRIC: Patient carries a psychiatric history of bipolar and schizophrenia. Patient openly admits to both hearing and seeing things that she has come to know are not real. Denies any thoughts of self-harm, paranoia or glandular HEMATOLOGIC/LYMPHATIC: Denies bruising HOME MEDICATIONS: Please see below. PHYSICAL EXAMINATION: VITAL SIGNS: Please see below GENERAL APPEARANCE: Patient is interviewed and examined in the emergency department. Patient was found be resting comfortably in bed with the lights off. She was easily arousable, found to be awake and alert, able to answer questions regarding her medical history appropriately. She does not appear to be any acute distress or discomfort. Appears older than stated age. HEENT: Normocephalic, atraumatic, EOMI, sclera nonicteric without conjunctival injection, mucous members are moist, fair oral hygiene, trachea midline no appreciable JVD CARDIOVASCULAR: Regular rate and rhythm without murmur LUNGS: Fair inspiratory effort, clear to auscultation throughout, no appreciable wheezes rales or rhonchi. No conversational dyspnea. ABDOMEN: Tense ascites with mild tenderness to palpation of the dependent area. Mild fluid wave appreciable EXTREMITIES: Patient is able to move all externally is equally bilaterally. Trace edema in her lower extremities, right greater than left. Significant improvement following recent paracentesis NEUROLOGICAL: Cranial nerves and strength grossly intact. PSYCHIATRIC: Mood and affect are appropriate. LABORATORY DATA: See below. IMAGING: EKG (10/17/20): Sinus tachycardia with right ventricular conduction delay Abdomen x-ray (10/17/20): Official read pending Abdomen/pelvis CT (10/17/20): Since 08/31/20 there is been development of massive ascites throughout the abdomen and pelvis, most consistent with malignant ascites in a patient with a previous endometrial carcinoma. 7 cm oval mass in the posterior right lung base and 3 cm oval mass in the left lung base. Mass on the right is mixed solid and cystic. These are most consistent with metastatic lesions at the lung bases which have mildly increased since November. Interval development of subcutaneous edema throughout the abdomen and pelvis. Moderate constipation. Severe splenomegaly developing since November. Secretions to the small bowel with air-fluid levels consistent with ileus. Striated appearance of the anterior mesentery probably secondary to lymphangitic spread of carcinoma or edema. MICROBIOLOGY: Urine culture (10/17/20): Pending ASSESSMENT: 59-year-old female with a history of endometrial carcinoma and metastatic disease, who presented to the emergency department complaining of abdominal pain, distention n/v after one week without a bowel movement. Exam and CT imaging are consistent with possible ileus in the setting of underlying malignant ascites. Patient is 7 days post-therapeutic paracentesis with removal of over 8000 mL of ascitic fluid. Plan to discuss the possibility of pigtail drain being placed with IR. Regards to her bowel movement, surgery was consult from the emergency department and recommended bowel rest and fluids. Patient admitted for further monitoring and management. PLAN: #Ileus -Patient has been 7 days without a bowel movement. Reports worsening abdominal pain, intermittent flatus. Hemodynamically stable. -Air-fluid levels shown on abdomen CT. -Surgery was consulted by the emergency department. Recommended conservative management without NG tube placement. -Patient will be admitted to the floor, be kept nothing by mouth, and given maintenance fluids. -Zofran for nausea/emesis control. After arriving on the floor, patient continued to vomit over 300ml of bilious emesis with increasing abdominal discomfort. NG tube placement with LIS was attempted. Unfortunately, patient did not tolerate and removed the NG tube herself. #Malignant ascites -Patient is status post therapeutic paracentesis on 10/09/20 with removal of 8300 mL of ascites. -Persistent ascites noted on abdomen CT. -Date team to consult with IR for consideration of a pigtail drain. #Metastatic disease -History of endometrial carcinoma. -Bilateral lung masses, 7 cm oval, mixed solid and cystic mass posterior right base, 3 cm oval mass of the left lung base -Anterior mesentery striations, question lymphangitic spread -Follows with oncology, Levatanib PO QD -Oxycodone Q4PRN for cancer-related pain #Mood Disorder -Paliperidone, Seroquel #IDDM -Hold home oral antiglycemics -Complicating care, A1c -ISS, Q6H while NPO #Hypothyroid -Home Levothyroxine CODE STATUS: Full Code DVT PROPHYLAXIS: Teds/Sequential, thrombocytosis DISPOSITION: Anticipate 2 nights stay Vital Signs Vital Signs Date Time Temp Pulse Resp B/P (MAP) Pulse Ox O2 Delivery O2 Flow Rate FiO2 10/17/20 21:53 97.8 109 16 147/90 (109) 94 Room Air Laboratory Data Labs 24H Laboratory Tests 2 10/17/20 18:53: Immature Granulocyte % (Auto) 0.2, Neutrophils (%) (Auto) 83.6H, Lymphocytes (%) (Auto) 6.7L, Monocytes (%) (Auto) 8.8H, Eosinophils (%) (Auto) 0.5, Basophils (%) (Auto) 0.2, Neutrophils # (Auto) 3.5, Lymphocytes # (Auto) 0.3L, Monocytes # (Auto) 0.4, Eosinophils # (Auto) 0.0, Basophils # (Auto) 0.0, Nucleated Red Blood Cells % (auto) 0.0, Immature Platelet Fraction 3.2, Total Bilirubin 0.7, Direct Bilirubin 0.3H, Aspartate Amino Transf (AST/SGOT) 27, Alanine Aminotransferase (ALT/SGPT) 17, Alkaline Phosphatase 205H, Total Protein 6.4, Albumin 2.7L, Albumin/Globulin Ratio 0.7L, Lipase 30L 10/17/20 19:02: Urine Color YELLOW, Urine Appearance CLOUDYH, Urine pH 6.0, Urine Specific [place] 1.012, Urine Protein 3+H, Urine Glucose (UA) NEGATIVE, Urine Ketones NEGATIVE, Urine Blood NEGATIVE, Urine Nitrite NEGATIVE, Urine Bilirubin NEGATIVE, Urine Urobilinogen 2.0H, Urine Leukocyte Esterase NEGATIVE, Urine WBC (Auto) 16H, Urine RBC (Auto) 6H, Urine Hyaline Casts (Auto) 4, Urine Bacteria (Auto) 1+H, Urine Squamous Epithelial Cells 1, Urine Mucus (Auto) SMALL, Urine Sperm (Auto) 10/17/20 19:25: POC Glucose (Misc Panel) 144H, POC Sodium (Misc Panel) 135L, POC Potassium (Misc Panel) 4.0, POC Chloride (Misc Panel) 102, POC Total CO2 (Misc Panel) 24.0, POC Blood Urea Nitrogen (Misc Panel 8, POC Ionized Calcium (Misc Panel) 4.7, POC Creatinine (Misc Panel) 1.3, POC Hematocrit (Misc Panel) 41.0 10/18/20 00:43: CBC/BMP Laboratory Tests 10/17/20 18:53 Microbiology Microbiology 10/17/20 Urine Culture, Received Pending Home Medications Scheduled Alogliptin Benzoate (Nesina) 12.5 Mg Tablet, 12.5 MG PO DAILY Cholecalciferol (Vitamin D3) (Vitamin D3) 50 Mcg Tablet, 50 MCG PO BID Ferrous Sulfate (Ferrous Sulfate) 325 Mg Tablet, 325 MG PO 3XW TUESDAY,TUESDAY, TUESDAY Lenvatinib Mesylate (Lenvima) 1 Each Capsule, 20 MG PO DAILY 10 mg tab take 2 tabs by mouth daily Levothyroxine Sodium (Synthroid) 100 Mcg Tablet, 100 MCG PO QAM Magnesium Oxide (Magnesium) 400 Mg Capsule, 400 MG PO BID Paliperidone (Invega) 3 Mg Tab.er.24, 3 MG PO QHS Potassium Chloride (Potassium Chloride) 10 Meq Tab, 20 MEQ PO BID Quetiapine Fumarate (Quetiapine Fumarate) 50 Mg Tablet, 50 MG PO QPM Rosuvastatin Calcium (Crestor) 40 Mg Tablet, 40 MG PO QHS Sulfamethoxazole/Trimethoprim (Sulfamethoxazole-Tmp Ds Tablet) 1 Each Tablet, 1 TAB PO DAILY Trospium Chloride (Trospium Chloride) 20 Mg Tablet, 20 MG PO BID Scheduled PRN Clonazepam (Clonazepam) 0.25 Mg Tab.rapdis, 0.25 MG PO DAILY PRN for ANXIETY Cyclobenzaprine HCl (Cyclobenzaprine HCl) 10 Mg Tablet, 10 MG PO TID PRN for MUSCLE SPASMS Ondansetron HCl (Ondansetron HCl) 8 Mg Tablet, 8 MG PO Q6H PRN for NAUSEA OR VOMITING Oxycodone HCl (Oxycodone HCl) 5 Mg Tablet, 5 MG PO Q4HP PRN for pain Allergies Coded Allergies: bee venom protein (honey bee) (Verified Allergy, Unknown, 02/12/20) aspirin (Verified Adverse Reaction, Unknown, sensitive, 02/12/20) A-FIB/CHADSVASC A-FIB History Current/History of A-Fib/PAF?: No GME ATTESTATION GME ATTESTATION My faculty preceptor for this patient encounter was physically present during encounter and was fully available. All aspects of the patient interview, examination, medical decision making process, and medical care plan development were reviewed and approved by the faculty preceptor. The faculty preceptor is aware and concurs with the plan as stated in the body of this note and will attest to such by his/her cosignature. ATTENDING NOTE TIME OF SERVICE 3:15AM Ms. Orellana is a 59 yr old w a hx of DM, endometrial cancer with mets to the lungs, migraines, anxiety and depression who presented w c/o constipation, obstipation and lower abdominal pain; she will be admitted for management of ileus, malignant ascites possibly SBP & abdominal wall cellulitis. Plan: f/u w will ask the day time team to consider IR consult for paracentesis and pigtail placement Rest per 's H&P MARK SALEH DO Oct 18, 2020 01:13 ROSE RANDALL MD Oct 18, 2020 03:52
[2020-10-18] MEDS ORDERED: METAL LOCK LOOP XX ONE (01:31)
[2020-10-18] MEDS ORDERED: NITROFURANTOIN (MACROBID) 100 MG CAP PO ONE (02:30)
[2020-10-18] MEDS ORDERED: GLUCAGON INJ 1MG VIAL SC PRN (02:30)
[2020-10-18] MEDS ORDERED: GLUCOSE 4GM CHEW TABLET PO PRN (02:30)
[2020-10-18] MEDS ORDERED: DEXTROSE 50% 50 ML SYRINGE IV PRN (02:30)
[2020-10-18] MEDS: D5W/0.45% SODIUM CHLORIDE 1,000 ML IV SCH ×3 (02:36→17:49)
[2020-10-18 03:13] LABS: HEMOGLOBIN A1c 4.9 %
[2020-10-18 03:24] VITALS: BP 152/100
[2020-10-18] MEDS ORDERED: GI COCKTAIL 50ML BTL(HYOSCYAMINE/MAALOX/LIDOCAINE VISCOUS)(1:3:1) PO ONE (04:15)
[2020-10-18] MEDS: ONDANSETRON 4MG/2ML VIAL IV PRN ×3 (04:34→21:05)
[2020-10-18 06:00] VITALS: BP 155/100
[2020-10-18] MEDS: HumaLOG INSULIN (NovoLOG) PER UNIT SC SCH ×3 (06:48→17:50)
[2020-10-18] MEDS ORDERED: HumaLOG INSULIN (NovoLOG) PER UNIT SC SCH ×2 (07:30→21:00)
[2020-10-18 08:13] LABS: HEMATOCRIT 37.8 % (36.0-47.0); HEMOGLOBIN 11.8 g/dl (12.0-15.5); MEAN CORPUSCULAR HEMOGLOBIN 26.8 pg (27.0-33.0); MEAN CORPUSCULAR HGB CONC 31.2 g/dl (32.0-36.5); MEAN CORPUSCULAR VOLUME 85.7 fl (80.0-96.0); RED BLOOD COUNT 4.41 10^6/uL (4.00-5.40)
[2020-10-18 08:16] LABS: PLATELET COUNT, AUTOMATED 52 10^3/uL (150-450)
[2020-10-18 08:44] LABS: ALBUMIN 2.6 GM/DL (3.2-5.2); BILIRUBIN,TOTAL 0.6 MG/DL (0.2-1.0); CREATININE FOR GFR 1.09 MG/DL (0.55-1.30); GLOMERULAR FILTRATION RATE 54.9 (>51); MAGNESIUM LEVEL 1.6 MG/DL (1.8-2.4); PHOSPHORUS LEVEL 2.6 MG/DL (2.5-4.9); POTASSIUM SERUM 3.6 MEQ/L (3.5-5.1); TOTAL PROTEIN 5.7 GM/DL (6.4-8.2)
[2020-10-18] MEDS: CALCIUM CARBONATE 500 MG CHEW U/D PO SCH ×3 (09:39→20:47)
--- NOTE | 2020-10-18 11:19 | REP ---
INDICATION: constipation/pain. COMPARISON: None. TECHNIQUE: Three views of the abdomen and pelvis. FINDINGS: Bowel gas pattern is nonspecific and without obvious obstruction or perforation. Skeletal structures demonstrate osteopenia and degenerative changes. IMPRESSION: Nonspecific bowel gas pattern. <Electronically signed by Saúl Ott > 10/18/20 [id number]
--- NOTE | 2020-10-18 11:19 | REP ---
INDICATION: ileus, partial SBO? check to see if has resolved COMPARISON: None. TECHNIQUE: Supine view of the abdomen and pelvis. FINDINGS: Bowel gas pattern is nonspecific and without obvious obstruction or perforation. No organomegaly. No abnormal calcifications. Skeletal structures demonstrate stable degenerative changes. Contrast material from prior CT fills the bladder. IMPRESSION: Nonspecific bowel gas pattern. <Electronically signed by Saúl Ott > 10/18/20 [id number]
[2020-10-18 14:00] VITALS: BP 150/105
[2020-10-18] MEDS ORDERED: PROMETHAZINE 25 MG TAB PO PRN (16:15)
--- NOTE | 2020-10-18 16:24 | IPNPDOC ---
Date Seen The patient was seen on 10/18/20. Progress Note SUBJECTIVE: Pulled NG tube out since admission, repeat KUB this AM showed no obstruction. Vomiting persisted, adjusted medications. Cannot do abdominal paracentesis until after the weekend. Denies chest pain, shortness of breath, fevers, chills, diarrhea. OBJECTIVE: PHYSICAL EXAMINATION: VITAL SIGNS: Please see below GENERAL APPEARANCE: NAD, resting in bed. AAOx3 HEENT: AT/NC, EOMI, mucous members are moist, trachea midline, no appreciable JVD CARDIOVASCULAR: S1S2 +, no M/R/G LUNGS: Decreased breath sounds bilaterally, but no W/R/R ABDOMEN: Tense ascites with mild tenderness to palpation of the dependent area. Mild fluid wave appreciable EXTREMITIES: Patient is able to move all externally is equally bilaterally. Trace edema in b/l lower ext. NEUROLOGICAL: Cranial nerves and strength grossly intact. PSYCHIATRIC: Mood and affect are appropriate. LABORATORY DATA: See below. MICROBIOLOGY: BCx x 2 sets: pending UA +, UCx pending IMAGING: KUB 10/18/20: Nonspecific bowel gas pattern. EKG (10/17/20): Sinus tachycardia with right ventricular conduction delay Abdomen/pelvis CT (10/17/20): 1. Since 08/31/2020 there has been development of massive ascites through the a bdomen and pelvis most consistent with malignant ascites in a patient with previous endometrial carcinoma. 2. 7 cm oval mass at the posterior right lung base and 3 cm oval mass left lung base. Mass on the right is mixed solid and cystic. These are most consistent with metastatic lesions at the lung bases which have mildly increased since November. 3. Interval development of subcutaneous edema through the abdomen and pelvis. 4. Moderate constipation. 5. Severe splenomegaly developing since November. 6. Secretions through the small bowel with air-fluid levels consistent with ileus. 7. Striated appearance of the anterior mesentery probably secondary to lymphangitic spread of carcinoma or edema. ASSESSMENT: 59-year-old female with a history of endometrial carcinoma and metastatic d isease, who presented to the emergency department complaining of abdominal pain, distention n/v after one week without a bowel movement. Exam and CT imaging are consistent with possible ileus in the setting of underlying malignant ascites. Patient is 7 days post-therapeutic paracentesis with removal of over 8000 mL of ascitic fluid. Plan to discuss the possibility of pigtail drain being placed wit h IR. Regards to her bowel movement, surgery was consult from the emergency department and recommended bowel rest and fluids. Patient admitted for further monitoring and management. PLAN: #Ileus, resolved -Pulled NG tube out overnight. Persistent nausea, intermittent flatus. -Repeat KUB this AM: Nonspecific bowel gas pattern. Reviewed by surgery who did not see ileus or bowel obstruction -Patient has been 7 days without a bowel movement. -Will attempt to start CLD, if vomiting incr will make NPO until 10/20/20. If tolerates diet, start bowel regimen. -C/w IVFs. -Zofran PRN for nausea, phenergan # Abdominal distention/discomfort likely 2/2 to recurrent malignant ascites -Incrased abdominal discomfort, abdominal distension s/p therapeutic paracentesis on 10/09/20 with removal of 8300 mL of ascites. -Persistent ascites noted on abdomen CT. -Patient scheduled for paracentesis 10/20/20 and will likely need albumin during #UTI -WBC low at 3, immunocompromised -UCx pending -Stopped nitrofurantoin due to vomiting, started IV ceftriaxone #Metastatic disease -History of endometrial carcinoma. -Bilateral lung masses, 7 cm oval, mixed solid and cystic mass posterior right base, 3 cm oval mass of the left lung base -Anterior mesentery striations, question lymphangitic spread -Follows with oncology o/p -Holding Levatanib PO QD -If tolerating PO restart oxycodone Q4PRN for cancer-related pain- watch for s/s of opiate withdrawl if not taking for several days. #Mood Disorder -Stable -If tolerating PO restart paliperidone, seroquel #IDDM -Hold home oral antiglycemics -HbA1c <5 -ISS, Q6H while NPO -Currently on D5 supplemental IVFs due to continued n/v. If tolerates CLD well, stop or change to NSS and can consider changing FS and ISS to AC/HS. #Hypothyroidism -If tolerating PO restart levothyroxine #Pancytopenia likely 2/2 to malignancy -CBC daily #GERD: -PPI IV #DVT px: Teds/Sequential, thrombocytopenia DISPOSITION: C/w treatment above. Will be here over weekend and needing paracentesis 10/20/20. Plan is discharge home when medically improved. VS, I&O, 24H, Fishbone Vital Signs/I&O Vital Signs Date Time Temp Pulse Resp B/P (MAP) Pulse Ox O2 Delivery O2 Flow Rate FiO2 10/18/20 14:00 97.9 107 16 150/105 (120) 96 Room Air I&O- Last 24 Hours up to 6 AM 10/18/20 06:00 Intake Total 1350 ml Output Total 525 ml Balance 825 ml Laboratory Data 24H LABS Laboratory Tests 2 10/17/20 18:53: Immature Granulocyte % (Auto) 0.2, Neutrophils (%) (Auto) 83.6H, Lymphocytes (%) (Auto) 6.7L, Monocytes (%) (Auto) 8.8H, Eosinophils (%) (Auto) 0.5, Basophils (%) (Auto) 0.2, Neutrophils # (Auto) 3.5, Lymphocytes # (Auto) 0.3L, Monocytes # (Auto) 0.4, Eosinophils # (Auto) 0.0, Basophils # (Auto) 0.0, Nucleated Red Blood Cells % (auto) 0.0, Immature Platelet Fraction 3.2, Estimated Mean Plasma Glucose 94, Hemoglobin A1c 4.9, Total Bilirubin 0.7, Direct Bilirubin 0.3H, Aspartate Amino Transf (AST/SGOT) 27, Alanine Aminotransferase (ALT/SGPT) 17, Alkaline Phosphatase 205H, Total Protein 6.4, Albumin 2.7L, Albumin/Globulin Ratio 0.7L, Lipase 30L 10/17/20 19:02: Urine Color YELLOW, Urine Appearance CLOUDYH, Urine pH 6.0, Urine Specific [place] 1.012, Urine Protein 3+H, Urine Glucose (UA) NEGATIVE, Urine Ketones NEGATIVE, Urine Blood NEGATIVE, Urine Nitrite NEGATIVE, Urine Bilirubin NEGATIVE, Urine Urobilinogen 2.0H, Urine Leukocyte Esterase NEGATIVE, Urine WBC (Auto) 16H, Urine RBC (Auto) 6H, Urine Hyaline Casts (Auto) 4, Urine Bacteria (Auto) 1+H, Urine Squamous Epithelial Cells 1, Urine Mucus (Auto) SMALL, Urine Sperm (Auto) 10/17/20 19:25: POC Glucose (Misc Panel) 144H, POC Sodium (Misc Panel) 135L, POC Potassium (Misc Panel) 4.0, POC Chloride (Misc Panel) 102, POC Total CO2 (Misc Panel) 24.0, POC Blood Urea Nitrogen (Misc Panel 8, POC Ionized Calcium (Misc Panel) 4.7, POC Creatinine (Misc Panel) 1.3, POC Hematocrit (Misc Panel) 41.0 10/18/20 00:43: Coronavirus (COVID-19)(PCR) NEGATIVE 10/18/20 00:51: Lactic Acid Level 1.5 10/18/20 06:08: Bedside Glucose (Misc Panel) 167H 10/18/20 07:33: Nucleated Red Blood Cells % (auto) 0.0, Anion Gap 9, Glomerular Filtration Rate 54.9, Calcium Level 8.0L, Phosphorus Level 2.6, Magnesium Level 1.6L, Total Bilirubin 0.6, Aspartate Amino Transf (AST/SGOT) 20, Alanine Aminotransferase (ALT/SGPT) 14, Alkaline Phosphatase 169H, Total Protein 5.7L, Albumin 2.6L, Albumin/Globulin Ratio 0.8L 10/18/20 11:27: Bedside Glucose (Misc Panel) 128H CBC/BMP Laboratory Tests 10/17/20 18:53 10/18/20 07:33 Microbiology Microbiology 10/18/20 Blood Culture, Received Pending 10/18/20 Blood Culture, Received Pending 10/17/20 Urine Culture, Received Pending Current Medications Current Medications Medications (Trade) Dose Ordered Sig/Alejandro Route PRN Reason Start Time Stop Time Status Last Admin Dose Admin Calcium Carbonate (Tums) 1,000 mg TID PO 10/18/20 09:00 10/18/20 09:39 Dextrose (Dextrose 50%) 25 ml ASDIRECTED PRN IV SEE LABEL COMMENTS 10/18/20 02:30 Dextrose/Sodium Chloride 1,000 ml @ 100 mls/hr Q10H IV 10/18/20 01:39 10/18/20 09:39 Glucagon (Glucagon) 1 mg ASDIRECTED PRN SC SEE LABEL COMMENTS 10/18/20 02:30 Glucose (Glucose) 16 GM ASDIRECTED PRN PO SEE LABEL COMMENTS 10/18/20 02:30 Home Med (Med Rec Complete!) ASDIRECTED XX 10/18/20 00:45 10/18/20 00:42 DC Insulin Human Lispro (HumaLOG INSULIN) SEE PROTOCOL TABLE AC SC 10/18/20 07:30 10/18/20 03:47 DC Insulin Human Lispro (HumaLOG INSULIN) SEE PROTOCOL TABLE Q6H UT 10/18/20 06:00 10/18/20 13:08 Insulin Human Lispro (HumaLOG INSULIN) SEE PROTOCOL TABLE QHS UT 10/18/20 21:00 10/18/20 03:48 DC Ondansetron HCl (ZOFRAN INJection) 4 mg Q4HP PRN IV NAUSEA OR VOMITING 10/18/20 03:45 10/18/20 13:07 Allergies Coded Allergies: bee venom protein (honey bee) (Verified Allergy, Unknown, 02/12/20) aspirin (Verified Adverse Reaction, Unknown, sensitive, 02/12/20) Maggy Billingsley MD Oct 18, 2020 16:24
[2020-10-18] MEDS: PANTOPRAZOLE 40MG VIAL (C9113 PER 1) IV SCH (17:49)
[2020-10-18] MEDS ORDERED: cefTRIAXone SOD 1 GM in D5W MINI-BAG PLUS 50 ML IV SCH (18:00)
[2020-10-18] MEDS ORDERED: FLEET OIL RETENTION ENEMA PR PRN (18:30)
[2020-10-18 22:00] VITALS: BP 145/96
[2020-10-19] MEDS: HumaLOG INSULIN (NovoLOG) PER UNIT SC SCH ×4 (00:34→17:49)
[2020-10-19] MEDS: ONDANSETRON 4MG/2ML VIAL IV PRN ×3 (01:09→14:52)
[2020-10-19 06:00] VITALS: BP 150/100
[2020-10-19] MEDS: LEVOTHYROXINE 100MCG TABLET (0.1MG) PO SCH (06:00)
[2020-10-19 06:51] LABS: HEMATOCRIT 34.9 % (36.0-47.0); HEMOGLOBIN 10.6 g/dl (12.0-15.5); MEAN CORPUSCULAR HEMOGLOBIN 26.3 pg (27.0-33.0); MEAN CORPUSCULAR HGB CONC 30.4 g/dl (32.0-36.5); MEAN CORPUSCULAR VOLUME 86.6 fl (80.0-96.0); RED BLOOD COUNT 4.03 10^6/uL (4.00-5.40); WHITE BLOOD COUNT 3.2 10^3/uL (4.0-10.0)
[2020-10-19 06:52] LABS: PLATELET COUNT, AUTOMATED 54 10^3/uL (150-450)
[2020-10-19 07:25] LABS: ALBUMIN 2.2 GM/DL (3.2-5.2); ALT/SGPT 12 U/L (12-78); BILIRUBIN,TOTAL 0.4 MG/DL (0.2-1.0); BLOOD UREA NITROGEN 7 MG/DL (7-18); CALCIUM LEVEL 8.2 MG/DL (8.5-10.1); CARBON DIOXIDE LEVEL 28 MEQ/L (21-32); CHLORIDE LEVEL 107 MEQ/L (98-107); GLOMERULAR FILTRATION RATE > 60.0 (>51); GLUCOSE, FASTING 114 MG/DL (70-100); POTASSIUM SERUM 3.1 MEQ/L (3.5-5.1); SODIUM LEVEL 140 MEQ/L (136-145); TOTAL PROTEIN 5.2 GM/DL (6.4-8.2)
[2020-10-19] MEDS ORDERED: MIRALAX *UNIT DOSE* 17GM PACKET PO PRN (08:15)
[2020-10-19] MEDS ORDERED: POTASSIUM CHLORIDE 10 MEQ SR TABLET PO ONE (09:00)
[2020-10-19] MEDS: DOCUSATE SODIUM 100MG CAPSULE PO SCH ×2 (09:10→22:18)
[2020-10-19] MEDS: CALCIUM CARBONATE 500 MG CHEW U/D PO SCH ×3 (09:11→22:19)
[2020-10-19] MEDS: D5W/0.45% SODIUM CHLORIDE 1,000 ML IV SCH (09:11)
[2020-10-19] MEDS: SENNA 8.6 MG TAB (SENOKOT) PO SCH (09:11)
[2020-10-19] MEDS ORDERED: PILL CUTTER 1 EACH XX PRN (10:45)
[2020-10-19] MEDS: clonazePAM 0.5 MG TAB PO PRN ×2 (12:33→22:19)
[2020-10-19] MEDS: MAGNESIUM OXIDE 400 MG TAB (MAG-OX) PO SCH ×2 (12:33→22:17)
[2020-10-19 14:00] VITALS: BP 150/84
--- NOTE | 2020-10-19 16:03 | IPNPDOC ---
Date Seen The patient was seen on 10/19/20. Progress Note SUBJECTIVE: No N/V since 10/18/20. One small BM so started bowel regimen today. Advanced diet, restarted many home meds, holding off on narcotics. Paracentesis planned for 10/20/20. Denies chest pain, shortness of breath, fevers, chills, diarrhea. OBJECTIVE: PHYSICAL EXAMINATION: VITAL SIGNS: Please see below GENERAL APPEARANCE: NAD, resting in bed. AAOx3 HEENT: AT/NC, EOMI, mucous members are moist, trachea midline, no appreciable JVD CARDIOVASCULAR: S1S2 +, no M/R/G LUNGS: CTAB, but no W/R/R ABDOMEN: Tense ascites with no tenderness to palpation of the dependent area. Mild fluid wave appreciable EXTREMITIES: Patient is able to move all externally is equally bilaterally. Trace edema in b/l lower ext. NEUROLOGICAL: Cranial nerves and strength grossly intact. PSYCHIATRIC: Mood and affect are appropriate. LABORATORY DATA: See below. MICROBIOLOGY: BCx x 2 sets: NG at 24 hours UCx: contaminated IMAGING: KUB 10/18/20: Nonspecific bowel gas pattern. EKG (10/17/20): Sinus tachycardia with right ventricular conduction delay Abdomen/pelvis CT (10/17/20): 1. Since 08/31/2020 there has been development of massive ascites through the abdomen and pelvis most consistent with malignant ascites in a patient with previous endometrial carcinoma. 2. 7 cm oval mass at the posterior right lung base and 3 cm oval mass left lung base. Mass on the right is mixed solid and cystic. These are most consistent with metastatic lesions at the lung bases which have mildly increased since November. 3. Interval development of subcutaneous edema through the abdomen and pelvis. 4. Moderate constipation. 5. Severe splenomegaly developing since November. 6. Secretions through the small bowel with air-fluid levels consistent with ileus. 7. Striated appearance of the anterior mesentery probably secondary to lymphangitic spread of carcinoma or edema. ASSESSMENT: 59-year-old female with a history of endometrial carcinoma and metastatic disease, who presented to the emergency department complaining of abdominal pain, distention n/v after one week without a bowel movement. Exam and CT imaging are consistent with possible ileus in the setting of underlying malignant ascites. Patient is 7 days post-therapeutic paracentesis with removal of over 8000 mL of ascitic fluid. Plan to discuss the possibility of pigtail drain being placed with IR. Regards to her bowel movement, surgery was consult from the emergency department and recommended bowel rest and fluids. Patient admitted for further monitoring and management. PLAN: # Abdominal distention/discomfort likely 2/2 to recurrent ascites (malignant vs. infectious) -No increased abd pain overnight -Increased abdominal discomfort, abdominal distension s/p therapeutic paracentesis on 10/09/20 with removal of 8300 mL of ascites. -Persistent ascites noted on abdomen CT. -Patient scheduled for paracentesis 10/20/20 and may need albumin during procedure #Constipation, resolved ileus -Uses chronic opiates for malignancy associated pain at home -Small BM 10/18/20, s/p mineral oil enema with no BM after -Started on colace BID, senna daily, miralax PRN, mineral oil enema PRN -Holding off on opiate use if can help it -Encourage fluid Q2H #Metastatic disease -History of endometrial carcinoma. -Bilateral lung masses, 7 cm oval, mixed solid and cystic mass posterior right base, 3 cm oval mass of the left lung base -Anterior mesentery striations, question lymphangitic spread -Follows with oncology o/p -Holding Levatanib PO QD -Discussed holding off on restarting home narcotics while her constipation is improving. She was in agreement. When having regular BM, can restart oxycodone Q4PRN for cancer-related pain- watch for s/s of opiate withdrawl if not taking for several days. #Hx of UTI -UA + but UTI labeled as contaminant -D/c ceftriaxone -Restart home Bactrim prophylaxis #Mood Disorder -Stable -C/w paliperidone, seroquel #IDDM -Hold home oral antiglycemics -HbA1c <5 -Advanced to consistent carb diet -AC/HS FS, only starting AC ISS coverage #Hypothyroidism -C/w levothyroxine #Pancytopenia likely 2/2 to malignancy -CBC daily #DVT px: Teds/Sequential, thrombocytopenia Resolved issues: #Ileus DISPOSITION: C/w treatment above. Needing paracentesis 10/20/20. Plan is discharge home when medically improved. VS, I&O, 24H, Fishbone Vital Signs/I&O Vital Signs Date Time Temp Pulse Resp B/P (MAP) Pulse Ox O2 Delivery O2 Flow Rate FiO2 10/19/20 14:00 97.9 95 17 150/84 (106) 99 Room Air I&O- Last 24 Hours up to 6 AM 10/19/20 06:00 Intake Total 3160 ml Output Total 1100 ml Balance 2060 ml Laboratory Data 24H LABS Laboratory Tests 2 10/18/20 17:15: Bedside Glucose (Misc Panel) 145H 10/19/20 06:07: Nucleated Red Blood Cells % (auto) 0.0, Immature Platelet Fraction 2.6, Anion Gap 5L, Glomerular Filtration Rate > 60.0, Calcium Level 8.2L, Total Bilirubin 0.4, Aspartate Amino Transf (AST/SGOT) 19, Alanine Aminotransferase (ALT/SGPT) 12, Alkaline Phosphatase 139H, Total Protein 5.2L, Albumin 2.2L, Albumin/Globulin Ratio 0.7L 10/19/20 06:14: Bedside Glucose (Misc Panel) 126H 10/19/20 11:47: Bedside Glucose (Misc Panel) 124H CBC/BMP Laboratory Tests 10/19/20 06:07 Microbiology Microbiology 10/18/20 Blood Culture - Preliminary, Resulted No growth after 24 hours . All specim... 10/18/20 Blood Culture - Preliminary, Resulted No growth after 24 hours . All specim... 10/17/20 Urine Culture - Final, Complete Current Medications Current Medications Medications (Trade) Dose Ordered Sig/Alejandro Route PRN Reason Start Time Stop Time Status Last Admin Dose Admin Calcium Carbonate (Tums) 1,000 mg TID PO 10/18/20 09:00 10/19/20 14:53 Ceftriaxone Sodium 1 gm/ Dextrose 50 ml @ 100 mls/hr Q24H IV 10/18/20 18:00 10/18/20 17:49 Clonazepam (KlonoPIN) 0.25 mg DAILYPRN PRN PO ANXIETY 10/19/20 10:30 10/19/20 12:33 Dextrose (Dextrose 50%) 25 ml ASDIRECTED PRN IV SEE LABEL COMMENTS 10/18/20 02:30 Dextrose/Sodium Chloride 1,000 ml @ 100 mls/hr Q10H IV 10/18/20 01:39 10/19/20 09:11 Docusate Sodium (Colace) 100 mg BID PO 10/19/20 09:00 10/19/20 09:10 Glucagon (Glucagon) 1 mg ASDIRECTED PRN SC SEE LABEL COMMENTS 10/18/20 02:30 Glucose (Glucose) 16 GM ASDIRECTED PRN PO SEE LABEL COMMENTS 10/18/20 02:30 Home Med (Med Rec Complete!) ASDIRECTED XX 10/18/20 00:45 10/18/20 00:42 DC Insulin Human Lispro (HumaLOG INSULIN) SEE PROTOCOL TABLE AC SC 10/18/20 07:30 10/18/20 03:47 DC Insulin Human Lispro (HumaLOG INSULIN) SEE PROTOCOL TABLE Q6H SC 10/18/20 06:00 10/19/20 12:34 Insulin Human Lispro (HumaLOG INSULIN) SEE PROTOCOL TABLE QHS SC 10/18/20 21:00 10/18/20 03:48 DC Levothyroxine Sodium (Synthroid) 100 mcg DAILY@0600 PO 10/19/20 06:00 Magnesium Oxide (Mag-Ox) 400 mg BID PO 10/19/20 09:00 10/19/20 12:33 Mineral Oil (Fleet Oil Retention Enema) 1 ea DAILYPRN PRN [place] CONSTIPATION 10/18/20 18:30 10/18/20 18:28 Ondansetron HCl (ZOFRAN INJection) 4 mg Q4HP PRN IV NAUSEA OR VOMITING 10/18/20 03:45 10/19/20 14:52 Paliperidone (Invega) 3 mg QHS PO 10/19/20 21:00 Pantoprazole Sodium (Protonix) 40 mg Q24H IV 10/18/20 18:00 10/18/20 17:49 Polyethylene Glycol (Miralax) 1 pkt DAILYPRN PRN PO CONSTIPATION 10/19/20 08:15 10/19/20 09:10 Potassium Chloride (Micro-K Extencaps) 20 meq BID PO 10/19/20 21:00 Promethazine HCl (Phenergan) 25 mg Q6HP PRN PO VOMITING 10/18/20 16:15 Quetiapine Fumarate (SEROquel) 50 mg QPM PO 10/19/20 21:00 Rosuvastatin Calcium (Crestor) 40 mg QHS PO 10/19/20 21:00 Senna (Senokot) 2 tab DAILY PO 10/19/20 09:00 10/19/20 09:11 Allergies Coded Allergies: bee venom protein (honey bee) (Verified Allergy, Unknown, 02/12/20) aspirin (Verified Adverse Reaction, Unknown, sensitive, 02/12/20) Maggy Billingsley MD Oct 19, 2020 16:02
[2020-10-19] MEDS: BACTRIM 160MG/800MG DS TAB PO SCH (16:10)
[2020-10-19] MEDS: PANTOPRAZOLE 40MG VIAL (C9113 PER 1) IV SCH (17:48)
[2020-10-19] MEDS: CETIRIZINE (ZyrTEC) 10 MG TAB PO SCH (17:48)
[2020-10-19 22:00] VITALS: BP 105/70
[2020-10-19] MEDS: ROSUVASTATIN 10 MG TAB (CRESTOR) PO SCH (22:17)
[2020-10-19] MEDS: POTASSIUM CHLORIDE 10 MEQ SR TABLET PO SCH (22:18)
[2020-10-19] MEDS: PALIPERIDONE 3 MG ER TAB (INVEGA) PO SCH (22:18)
[2020-10-19] MEDS: QUEtiapine FUMARATE 50 MG TAB PO SCH (22:18)
[2020-10-20 05:58] LABS: HEMATOCRIT 36.2 % (36.0-47.0); HEMOGLOBIN 11.1 g/dl (12.0-15.5); MEAN CORPUSCULAR HEMOGLOBIN 26.5 pg (27.0-33.0); MEAN CORPUSCULAR HGB CONC 30.7 g/dl (32.0-36.5); MEAN CORPUSCULAR VOLUME 86.4 fl (80.0-96.0); RED BLOOD COUNT 4.19 10^6/uL (4.00-5.40); WHITE BLOOD COUNT 3.7 10^3/uL (4.0-10.0)
[2020-10-20 05:59] LABS: PLATELET COUNT, AUTOMATED 56 10^3/uL (150-450)
[2020-10-20] MEDS: LEVOTHYROXINE 100MCG TABLET (0.1MG) PO SCH (05:59)
[2020-10-20 06:00] VITALS: BP 126/84
[2020-10-20 06:30] LABS: ALBUMIN 2.2 GM/DL (3.2-5.2); BILIRUBIN,TOTAL 0.5 MG/DL (0.2-1.0); CALCIUM LEVEL 8.3 MG/DL (8.5-10.1); CREATININE FOR GFR 1.01 MG/DL (0.55-1.30); GLOMERULAR FILTRATION RATE 59.9 (>51); POTASSIUM SERUM 4.2 MEQ/L (3.5-5.1); TOTAL PROTEIN 5.8 GM/DL (6.4-8.2)
[2020-10-20] MEDS: MAGNESIUM OXIDE 400 MG TAB (MAG-OX) PO SCH ×2 (08:16→21:04)
[2020-10-20] MEDS: CALCIUM CARBONATE 500 MG CHEW U/D PO SCH ×3 (08:16→21:09)
[2020-10-20] MEDS: CETIRIZINE (ZyrTEC) 10 MG TAB PO SCH (08:17)
[2020-10-20] MEDS: POTASSIUM CHLORIDE 10 MEQ SR TABLET PO SCH ×2 (08:17→21:05)
[2020-10-20] MEDS: BACTRIM 160MG/800MG DS TAB PO SCH (08:17)
[2020-10-20] MEDS: SENNA 8.6 MG TAB (SENOKOT) PO SCH (08:17)
[2020-10-20] MEDS: DOCUSATE SODIUM 100MG CAPSULE PO SCH ×2 (08:17→21:05)
[2020-10-20] MEDS: HumaLOG INSULIN (NovoLOG) PER UNIT SC SCH ×3 (08:18→17:18)
[2020-10-20] MEDS ORDERED: LACTULOSE 20 GM/30 ML SYRUP UD PO ONE (09:00)
--- NOTE | 2020-10-20 10:58 | CR ---
REASON FOR CONSULTATION: Abdominal discomfort, possible ileus or obstruction. HISTORY OF PRESENT ILLNESS: The patient is a 59-year-old woman who presented to the Emergency Department on the September complaining of some abdominal discomfort and distention with no bowel movement in the last week. The patients history is significant for stage 4 endometrial carcinoma with lung metastases as well as metastatic disease within the abdomen. She has been receiving chemotherapy at the [facility]. She had developed ascites over the last month or two and underwent a therapeutic paracentesis on the 09 of October that reported drainage of 8,300 mL of fluid. She reports that she felt better after the fluid had been drained. She suggested to me that she had seen her oncologist the following day in the clinic. She reports that the fluid has re-accumulated fairly quickly, and she now feels quite full and uncomfortable. Her diet has been off and she has not had a bowel movement in days. She was seen in the Emergency Department and had a CT scan of the abdomen and pelvis obtained last evening. This was interpreted by the radiologist as showing a large amount of ascites throughout the abdomen and pelvis. She has some subcutaneous edema of the abdomen and pelvis with some splenomegaly developing since November. He reported that there were some air fluid levels consistent with an ileus in the small bowel. Because of concerns about possible ileus versus obstruction, I was asked to see the patient. She reports no vomiting. ALLERGIES: * Aspirin. * Honey bees. MEDICATIONS: At the time of admission included: * Alogliptin Benzoate. * Cholecalciferol. * Clonazepam. * Cyclobenzaprine. * Ferrous Sulfate. * Lenvatinib. * Levothyroxine. * Magnesium Oxide. * Zofran. * Oxycodone p.r.n. * Paliperidone. * Potassium Chloride. * Quetiapine. * Rosuvastatin. * Bactrim Double Strength. * Trospium Chloride. MEDICAL HISTORY: The patient's medical history is significant for: * Metastatic endometrial carcinoma. * History of schizophrenia. * History of bipolar disorder. * Diabetes mellitus. * History of hypothyroidism. * Gastroesophageal reflux disease. * She also has a reported history of hypertension. SURGICAL HISTORY: The patient's surgical history is significant for a hysterectomy which was approximately 4 years ago. FAMILY HISTORY: The patient's family history shows no history of other family members with a gynecologic malignancy. SOCIAL HISTORY: The patient's social history is as per the admitting Hospitalist. REVIEW OF SYSTEMS: The patient denies any fevers or chills. She has no chest pain or palpitations. She denies shortness of breath, cough or wheezing. She reports constipation over the last week or so. She has had no melena or hematochezia. She denies any nausea or vomiting but feels quite full. She denies any dysuria or hematuria. There is no history of DVT or pulmonary embolus. PHYSICAL EXAMINATION: GENERAL APPEARANCE: A pleasant woman appearing older than her stated age of 59 years. She is alert and oriented. HEART: Regular rhythm. LUNGS: Clear. ABDOMEN: Obviously quite protuberant. The abdomen shows several small scars consistent with some sort of laparoscopic procedure across the mid abdomen. She clearly has a large amount of ascites with a fluid wave evident. She has some mild tenderness on palpation across the mid lower abdomen. There is no evident umbilical or inguinal hernia. LABORATORY STUDIES: This morning white count of 3, hemoglobin 12, hematocrit 38 and a platelet count of 52,000. Her chemistries show normal electrolytes with a BUN of 9, creatinine 1.09 and a glucose of 148. Liver function tests are not significantly abnormal. Her alkaline phosphatase is slightly elevated at 169. Her magnesium is low at 1.6. Total protein is 5.7 with an albumin of 2.6. IMAGING DATA: I reviewed her imaging including a CT scan of the abdomen and pelvis from the 17 of October as well as a study from early August and one from back in February. Her current study shows a large amount of ascites fluid throughout the abdomen and pelvis. There is a small amount of air and fluid within the small bowel, but I see no evidence of a definite obstruction. She has some stool in the colon but the colon is not distended, and there are no obvious inflammatory changes. The known tumor masses in the lower chest are noted and are clearly much bigger than they had been earlier in the year. IMPRESSION: * Marked abdominal ascites with abdominal pain and some fullness and nausea. * Hypoproteinemia with a protein of 5.7 and an albumin of 2.6. * Metastatic endometrial carcinoma. * Schizophrenia/bipolar disorder. * Hypertension. * Hypothyroidism. * Diabetes mellitus. RECOMMENDATIONS: At this point the patient does not appear to require any sort of surgical intervention. She does not have any strong evidence for intestinal obstruction. I suspect most of her symptoms are related to her large volume of ascites. She had 8 liters drained from her abdomen just 10 days or so ago and it has now recurred. The CT also showed some fluid within the abdominal wall, and I suspect this is a sign primarily of worsening nutrition. Certainly Oncology input is warranted to discuss whether we are approaching end of life decisions to be made regarding continuation of treatment and how much palliative care to engage in. She certainly could have a repeat therapeutic paracentesis which brought her some relief previously but she did reform her ascites in a very short period of time, and so this will not be a residential solution. MELANIE
[2020-10-20 14:00] VITALS: BP 118/81
--- NOTE | 2020-10-20 15:50 | IPNPDOC ---
Date Seen The patient was seen on 10/20/20. Progress Note SUBJECTIVE: Some nausea with several small BM over the past 24 hours. Tolerating diet. Unfortunately, IR cannot do paracentesis until 10/22/20. Denies increased abdominal discomfort, chest pain, shortness of breath, fevers, chills, diarrhea. OBJECTIVE: PHYSICAL EXAMINATION: VITAL SIGNS: Please see below GENERAL APPEARANCE: NAD, resting in bed. AAOx3 HEENT: AT/NC, EOMI, mucous members are moist, trachea midline, no appreciable JVD CARDIOVASCULAR: S1S2 +, no M/R/G LUNGS: CTAB, but no W/R/R ABDOMEN: Tense ascites with no tenderness to palpation of the dependent area. Mild fluid wave appreciable EXTREMITIES: Patient is able to move all externally is equally bilaterally. Trace edema in b/l lower ext. NEUROLOGICAL: Cranial nerves and strength grossly intact. PSYCHIATRIC: Mood and affect are appropriate. LABORATORY DATA: See below. MICROBIOLOGY: BCx x 2 sets: NG at 24 hours UCx: contaminated IMAGING: KUB 10/18/20: Nonspecific bowel gas pattern. EKG (10/17/20): Sinus tachycardia with right ventricular conduction delay Abdomen/pelvis CT (10/17/20): 1. Since 08/31/2020 there has been development of massive ascites through the abdomen and pelvis most consistent with malignant ascites in a patient with previous endometrial carcinoma. 2. 7 cm oval mass at the posterior right lung base and 3 cm oval mass left lung base. Mass on the right is mixed solid and cystic. These are most consistent with metastatic lesions at the lung bases which have mildly increased since November. 3. Interval development of subcutaneous edema through the abdomen and pelvis. 4. Moderate constipation. 5. Severe splenomegaly developing since November. 6. Secretions through the small bowel with air-fluid levels consistent with ileus. 7. Striated appearance of the anterior mesentery probably secondary to lymphangitic spread of carcinoma or edema. ASSESSMENT: 59-year-old female with a history of endometrial carcinoma and metastatic disease, who presented to the emergency department complaining of abdominal pain, distention n/v after one week without a bowel movement. Exam and CT imaging are consistent with possible ileus in the setting of underlying malignant ascites. Patient is 7 days post-therapeutic paracentesis with removal of over 8000 mL of ascitic fluid. Plan to discuss the possibility of pigtail drain being placed with IR. Regards to her bowel movement, surgery was consult from the emergency department and recommended bowel rest and fluids. Patient admitted for further monitoring and management. PLAN: # Abdominal distention/discomfort likely 2/2 to recurrent ascites (malignant vs. infectious)- likely more malignant as patient has had no fevers, other s/s of infection. -No increased abd pain overnight -WBC wnl -Increased abdominal discomfort, abdominal distension s/p therapeutic paracentesis on 10/09/20 with removal of 8300 mL of ascites. -Persistent ascites noted on abdomen CT. -Patient scheduled for paracentesis 10/20/20. Does not wish to have albumin with procedure due to personal/scientologist reasons. #Constipation, resolved ileus- improving -Uses chronic opiates for malignancy associated pain at home -BR instituted 10/19/20 -C/w colace BID, senna daily, miralax PRN, mineral oil enema PRN -If has BM again today, would add back home opiates -Encourage fluid Q2H #Metastatic disease -History of endometrial carcinoma. -Bilateral lung masses, 7 cm oval, mixed solid and cystic mass posterior right base, 3 cm oval mass of the left lung base -Anterior mesentery striations, question lymphangitic spread -Follows with oncology o/p -Holding Levatanib PO QD -When having regular BM, can restart oxycodone Q4PRN for cancer-related pain- watch for s/s of opiate withdrawl if not taking for several days. Discussed holding off on restarting home narcotics while her constipation is improving. She was in agreement. #Hx of UTI -UA + but UTI labeled as contaminant -D/c ceftriaxone -C/w Bactrim prophylaxis #Mood Disorder -Stable -C/w paliperidone, seroquel #IDDM -Hold home oral antiglycemics -HbA1c <5 -Consistent carb diet -AC/HS FS, only starting AC ISS coverage #Hypothyroidism -C/w levothyroxine #Pancytopenia likely 2/2 to malignancy -CBC daily #DVT px: Teds/Sequential, thrombocytopenia Resolved issues: #Ileus #Constipation DISPOSITION: C/w treatment above. Needing paracentesis 10/22/20, attempted to do this over weekend and today but staffing is an issue. Plan is discharge home when medically improved. VS, I&O, 24H, Fishbone Vital Signs/I&O Vital Signs Date Time Temp Pulse Resp B/P (MAP) Pulse Ox O2 Delivery O2 Flow Rate FiO2 10/20/20 14:00 97.6 99 18 118/81 (93) 96 Room Air I&O- Last 24 Hours up to 6 AM 10/20/20 06:00 Intake Total 3500 ml Output Total 200 ml Balance 3300 ml Laboratory Data 24H LABS Laboratory Tests 2 10/19/20 16:18: Bedside Glucose (Misc Panel) 151H 10/19/20 20:11: Bedside Glucose (Misc Panel) 82 10/20/20 05:42: Nucleated Red Blood Cells % (auto) 0.0, Anion Gap 5L, Glomerular Filtration Rate 59.9, Calcium Level 8.3L, Total Bilirubin 0.5, Aspartate Amino Transf (AST/SGOT) 34, Alanine Aminotransferase (ALT/SGPT) 13, Alkaline Phosphatase 139H, Total Protein 5.8L, Albumin 2.2L, Albumin/Globulin Ratio 0.6L 10/20/20 11:33: Bedside Glucose (Misc Panel) 134H CBC/BMP Laboratory Tests 10/20/20 05:42 Microbiology Microbiology 10/18/20 Blood Culture - Preliminary, Resulted No Growth after 48 hours. All Specime... 10/18/20 Blood Culture - Preliminary, Resulted No Growth after 48 hours. All Specime... 10/17/20 Urine Culture - Final, Complete Current Medications Current Medications Medications (Trade) Dose Ordered Sig/Alejandro Route PRN Reason Start Time Stop Time Status Last Admin Dose Admin Calcium Carbonate (Tums) 1,000 mg TID PO 10/18/20 09:00 10/20/20 08:16 Ceftriaxone Sodium 1 gm/ Dextrose 50 ml @ 100 mls/hr Q24H IV 10/18/20 18:00 10/19/20 17:17 DC 10/18/20 17:49 Cetirizine HCl (ZyrTEC) 10 mg DAILY PO 10/19/20 09:00 10/20/20 08:17 Clonazepam (KlonoPIN) 0.25 mg DAILYPRN PRN PO ANXIETY 10/19/20 10:30 10/19/20 22:19 Dextrose (Dextrose 50%) 25 ml ASDIRECTED PRN IV SEE LABEL COMMENTS 10/18/20 02:30 Dextrose/Sodium Chloride 1,000 ml @ 100 mls/hr Q10H IV 10/18/20 01:39 10/19/20 15:58 DC 10/19/20 09:11 Docusate Sodium (Colace) 100 mg BID PO 10/19/20 09:00 10/20/20 08:17 Glucagon (Glucagon) 1 mg ASDIRECTED PRN SC SEE LABEL COMMENTS 10/18/20 02:30 Glucose (Glucose) 16 GM ASDIRECTED PRN PO SEE LABEL COMMENTS 10/18/20 02:30 Home Med (Med Rec Complete!) ASDIRECTED XX 10/18/20 00:45 10/18/20 00:42 DC Insulin Human Lispro (HumaLOG INSULIN) SEE PROTOCOL TABLE AC SC 10/18/20 07:30 10/18/20 03:47 DC Insulin Human Lispro (HumaLOG INSULIN) SEE PROTOCOL TABLE AC SC 10/19/20 17:30 10/20/20 12:15 Insulin Human Lispro (HumaLOG INSULIN) SEE PROTOCOL TABLE Q6H SC 10/18/20 06:00 10/19/20 15:58 DC 10/19/20 12:34 Insulin Human Lispro (HumaLOG INSULIN) SEE PROTOCOL TABLE QHS SC 10/18/20 21:00 10/18/20 03:48 DC Levothyroxine Sodium (Synthroid) 100 mcg DAILY@0600 PO 10/19/20 06:00 10/20/20 05:59 Magnesium Oxide (Mag-Ox) 400 mg BID PO 10/19/20 09:00 10/20/20 08:16 Mineral Oil (Fleet Oil Retention Enema) 1 ea DAILYPRN PRN NE CONSTIPATION 10/18/20 18:30 10/18/20 18:28 Ondansetron HCl (ZOFRAN INJection) 4 mg Q4HP PRN IV NAUSEA OR VOMITING 10/18/20 03:45 10/19/20 14:52 Paliperidone (Invega) 3 mg QHS PO 10/19/20 21:00 10/19/20 22:18 Pantoprazole Sodium (Protonix) 40 mg Q24H IV 10/18/20 18:00 10/19/20 17:48 Polyethylene Glycol (Miralax) 1 pkt DAILYPRN PRN PO CONSTIPATION 10/19/20 08:15 11/22/20 09:10 Potassium Chloride (Micro-K Extencaps) 20 meq BID PO 10/19/20 21:00 10/20/20 08:17 Promethazine HCl (Phenergan) 25 mg Q6HP PRN PO VOMITING 10/18/20 16:15 Quetiapine Fumarate (SEROquel) 50 mg QPM PO 10/19/20 21:00 10/19/20 22:18 Rosuvastatin Calcium (Crestor) 40 mg QHS PO 10/19/20 21:00 10/19/20 22:17 Senna (Senokot) 2 tab DAILY PO 10/19/20 09:00 10/20/20 08:17 Trimethoprim/ Sulfamethoxazole (Bactrim Ds, Septra Ds 160mg/ 800mg) 1 tab DAILY PO 10/19/20 09:00 10/20/20 08:17 Allergies Coded Allergies: bee venom protein (honey bee) (Verified Allergy, Unknown, 02/12/20) aspirin (Verified Adverse Reaction, Unknown, sensitive, 02/12/20) Maggy Billingsley MD Oct 20, 2020 15:50
[2020-10-20] MEDS: PANTOPRAZOLE 40MG VIAL (C9113 PER 1) IV SCH (17:16)
[2020-10-20] MEDS: QUEtiapine FUMARATE 50 MG TAB PO SCH (21:06)
[2020-10-20] MEDS: ROSUVASTATIN 10 MG TAB (CRESTOR) PO SCH (21:06)
[2020-10-20] MEDS: PALIPERIDONE 3 MG ER TAB (INVEGA) PO SCH (21:08)
[2020-10-20 22:00] VITALS: BP 116/81
[2020-10-21] MEDS: LEVOTHYROXINE 100MCG TABLET (0.1MG) PO SCH (05:35)
[2020-10-21 06:00] VITALS: BP 122/82
[2020-10-21 06:15] LABS: HEMATOCRIT 34.1 % (36.0-47.0); HEMOGLOBIN 10.5 g/dl (12.0-15.5); MEAN CORPUSCULAR HEMOGLOBIN 26.7 pg (27.0-33.0); MEAN CORPUSCULAR HGB CONC 30.8 g/dl (32.0-36.5); MEAN CORPUSCULAR VOLUME 86.8 fl (80.0-96.0); RED BLOOD COUNT 3.93 10^6/uL (4.00-5.40); WHITE BLOOD COUNT 4.1 10^3/uL (4.0-10.0)
[2020-10-21 06:22] LABS: PLATELET COUNT, AUTOMATED 53 10^3/uL (150-450)
[2020-10-21 06:38] LABS: ALBUMIN 2.2 GM/DL (3.2-5.2); ALT/SGPT 10 U/L (12-78); BILIRUBIN,TOTAL 0.4 MG/DL (0.2-1.0); BLOOD UREA NITROGEN 9 MG/DL (7-18); CALCIUM LEVEL 8.4 MG/DL (8.5-10.1); CARBON DIOXIDE LEVEL 26 MEQ/L (21-32); CHLORIDE LEVEL 106 MEQ/L (98-107); CREATININE FOR GFR 0.96 MG/DL (0.55-1.30); GLOMERULAR FILTRATION RATE > 60.0 (>51); GLUCOSE, FASTING 128 MG/DL (70-100); SODIUM LEVEL 138 MEQ/L (136-145); TOTAL PROTEIN 5.1 GM/DL (6.4-8.2)
[2020-10-21] MEDS: BACTRIM 160MG/800MG DS TAB PO SCH (08:25)
[2020-10-21] MEDS: MAGNESIUM OXIDE 400 MG TAB (MAG-OX) PO SCH ×2 (08:25→21:27)
[2020-10-21] MEDS: DOCUSATE SODIUM 100MG CAPSULE PO SCH ×2 (08:25→21:27)
[2020-10-21] MEDS: POTASSIUM CHLORIDE 10 MEQ SR TABLET PO SCH ×2 (08:26→21:27)
[2020-10-21] MEDS: CALCIUM CARBONATE 500 MG CHEW U/D PO SCH ×3 (08:26→21:27)
[2020-10-21] MEDS: SENNA 8.6 MG TAB (SENOKOT) PO SCH (08:26)
[2020-10-21] MEDS: CETIRIZINE (ZyrTEC) 10 MG TAB PO SCH (08:26)
[2020-10-21] MEDS: HumaLOG INSULIN (NovoLOG) PER UNIT SC SCH ×3 (08:27→17:05)
[2020-10-21] MEDS ORDERED: SODIUM BICARBONATE 8.4% INJ 50MEQ 50 ML VIAL As Ordered ONE (09:03)
[2020-10-21 10:14] LABS: APPEARANCE, BODY FLUID HAZY (CLEAR); ASCITES FL COLOR PALE YELLOW (COLORLESS); SOURCE, BODY FLUID ASCITES
[2020-10-21 10:15] LABS: SPEC. GRAVITY BODY FLUIDS 1.011 (NOT ESTABLISHED)
[2020-10-21 10:33] VITALS: BP 124/81
[2020-10-21] MEDS ORDERED: oxyCODONE 5MG TAB PO PRN (10:45)
[2020-10-21 10:49] LABS: SOURCE, BODY FLUID ALBUMIN ASCITES; SOURCE, BODY FLUID GLUCOSE ASCITES; SOURCE, BODY FLUID TOT PROTEIN ASCITES; TOTAL PROTEIN, BODY FLUID 1.2 G/DL (NOT ESTABLISHED)
[2020-10-21 12:41] VITALS: BP 123/78
[2020-10-21 14:00] VITALS: BP 107/64
--- NOTE | 2020-10-21 16:18 | IPNPDOC ---
Text Note Date of Service The patient was seen on 10/21/20. NOTE SUBJECTIVE: -Has some nausea . -Tolerating diet. -No abdominal discomfort, chest pain, shortness of breath, fevers, chills, diarrhea. -Pending paracentesis this morning. Declined post para albumin OBJECTIVE: PHYSICAL EXAMINATION: VITAL SIGNS: Please see below GENERAL APPEARANCE: NAD, resting in bed. AAOx3 HEENT: AT/NC, EOMI, mucous members are moist, trachea midline, no appreciable JVD CARDIOVASCULAR: S1S2 +, no M/R/G LUNGS: CTAB, but no W/R/R ABDOMEN: Tense ascites with no tenderness to palpation. + fluid wave. Normoactive sounds. non tender abdomen EXTREMITIES: Patient is able to move all externally is equally bilaterally. Trace edema in b/l lower ext. NEUROLOGICAL: Cranial nerves and strength grossly intact. PSYCHIATRIC: Mood and affect are appropriate. LABORATORY DATA: reviewed. stable See below. MICROBIOLOGY: BCx x 2 sets: NG at 24 hours UCx: contaminated IMAGING: KUB 10/18/20: Nonspecific bowel gas pattern. EKG (10/17/20): Sinus tachycardia with right ventricular conduction delay Abdomen/pelvis CT (10/17/20): 1. Since 08/31/2020 there has been development of massive ascites through the abdomen and pelvis most consistent with malignant ascites in a patient with previous endometrial carcinoma. 2. 7 cm oval mass at the posterior right lung base and 3 cm oval mass left lung base. Mass on the right is mixed solid and cystic. These are most consistent with metastatic lesions at the lung bases which have mildly increased since November. 3. Interval development of subcutaneous edema through the abdomen and pelvis. 4. Moderate constipation. 5. Severe splenomegaly developing since November. 6. Secretions through the small bowel with air-fluid levels consistent with ileus. 7. Striated appearance of the anterior mesentery probably secondary to lymphangitic spread of carcinoma or edema. ASSESSMENT: 59-year-old W with metastatic endometrial carcinoma who presented to the emergency department complaining of abdominal pain, distention n/v after one week without a bowel movement and CT showed possible ileus in the setting of underlying malignant ascites, with ileus now resolved and having a scheduled paracentesis this morning. PLAN: # Abdominal distention/discomfort 2/2 to recurrent ascites (malignant vs. unlik rico infectious) -WBC wnl -Last therapeutic paracentesis on 10/09/20 with removal of 8300 mL of ascites. -Persistent ascites noted on abdomen CT. -Patient scheduled for paracentesis this morning. Does not wish to have albumin with procedure due to personal/jain reasons. -Restart home PRN oxycodone for pain #Constipation, resolved ileus- improving -Uses chronic opiates for malignancy associated pain at home -BR instituted 10/19/20 -C/w colace BID, senna daily, miralax PRN, mineral oil enema PRN -If has BM again today, would add back home opiates -Encourage fluid Q2H #Metastatic disease -History of endometrial carcinoma. -Bilateral lung masses, 7 cm oval, mixed solid and cystic mass posterior right base, 3 cm oval mass of the left lung base -Anterior mesentery striations, question lymphangitic spread -Follows with oncology o/p -Holding Levatanib PO QD -When having regular BM, can restart oxycodone Q4PRN for cancer-related pain- watch for s/s of opiate withdrawl if not taking for several days. Discussed holding off on restarting home narcotics while her constipation is improving. She was in agreement. #Hx of UTI -UA + but UTI labeled as contaminant -C/w Bactrim prophylaxis #Mood Disorder -Stable -C/w paliperidone, seroquel #IDDM -Hold home oral antiglycemics -HbA1c <5 -Consistent carb diet -AC/HS FS, only starting AC ISS coverage #Hypothyroidism -C/w levothyroxine #Pancytopenia likely 2/2 to malignancy -CBC daily #DVT px: Teds/Sequential, thrombocytopenia Resolved issues: #Ileus #Constipation DISPOSITION: C/w treatment above. Having paracentesis this morning. Plan is discharge home likely tomorrow, given LVP today without albumin. To monitor ove rnight before discharge home. VS,Fishbone, I+O VS, Fishbone, I+O Laboratory Tests 10/21/20 05:50 Vital Signs Date Time Temp Pulse Resp B/P (MAP) Pulse Ox O2 Delivery O2 Flow Rate FiO2 10/21/20 09:05 99.7 107 20 97 Room Air 10/21/20 06:00 122/82 (95) I&O- Last 24 Hours up to 6 AM 10/21/20 06:00 Intake Total 1710 ml Output Total 0 ml Balance 1710 ml CHICHI PAK MD Oct 21, 2020 09:25
[2020-10-21 16:56] VITALS: BP 107/64
[2020-10-21] MEDS: PANTOPRAZOLE 40MG VIAL (C9113 PER 1) IV SCH (17:05)
--- NOTE | 2020-10-21 18:29 | REP ---
INDICATION: massive ascities, r/o SBP The patient has a history of massive ascites through the abdomen and pelvis on a CT dated 10/17/2020. COMPARISON: None. TECHNIQUE: The procedure was performed by SARITA Mai, under the direct supervision of Dr. Rivera The risks and benefits of the procedure were explained to the patient and an informed consent was obtained both verbally and written. Directly prior to the start of the procedure a formal time-out was completed in the procedure room. The largest pocket of fluid was localized in the right flank using ultrasound guidance. The skin was prepped and draped in a sterile fashion. Eleven ML of buffered lidocaine was used as a local anesthetic. An 8-Belarusian multi side-hole catheter was inserted using trocar technique. FINDINGS: 9170 mL of clear yellow colored ascites was removed in total, 1328 mL were sent to the lab for further analysis, and the rest was discarded. The patient tolerated the procedure well and there were no immediate complications. After the appropriate amount of monitored convalescence, the patient was discharged from the department. IMPRESSION: Ultrasound-guided paracentesis with removal of 9170 mL of a clear yellow ascites. <Electronically signed by Brenna Power > 10/21/20 1630 <Electronically signed by Alex Rivera > 10/21/20 [id number]
[2020-10-21] MEDS: ROSUVASTATIN 10 MG TAB (CRESTOR) PO SCH (21:26)
[2020-10-21] MEDS: PALIPERIDONE 3 MG ER TAB (INVEGA) PO SCH (21:26)
[2020-10-21] MEDS: QUEtiapine FUMARATE 50 MG TAB PO SCH (21:27)
[2020-10-21 22:00] VITALS: BP 103/61
[2020-10-22] MEDS: LEVOTHYROXINE 100MCG TABLET (0.1MG) PO SCH (05:22)
[2020-10-22 06:00] VITALS: BP 124/96
[2020-10-22] MEDS: CALCIUM CARBONATE 500 MG CHEW U/D PO SCH (09:59)
[2020-10-22] MEDS: BACTRIM 160MG/800MG DS TAB PO SCH (09:59)
[2020-10-22] MEDS: POTASSIUM CHLORIDE 10 MEQ SR TABLET PO SCH (09:59)
[2020-10-22] MEDS: CETIRIZINE (ZyrTEC) 10 MG TAB PO SCH (09:59)
[2020-10-22] MEDS: DOCUSATE SODIUM 100MG CAPSULE PO SCH (09:59)
[2020-10-22] MEDS: SENNA 8.6 MG TAB (SENOKOT) PO SCH (09:59)
[2020-10-22] MEDS: HumaLOG INSULIN (NovoLOG) PER UNIT SC SCH (10:00)
[2020-10-22] MEDS: MAGNESIUM OXIDE 400 MG TAB (MAG-OX) PO SCH (10:00)
--- NOTE | 2020-10-22 19:32 | DS.PDOC ---
Discharge Summary General Date of Admission Oct 18, 2020 at 00:46 Date of Discharge 10/22/2020 Attending Physician: CHICHI PAK MD Discharge Summary PROCEDURES PERFORMED DURING STAY: Paracentesis with removal of 9L of malignant ascites ADMITTING DIAGNOSES: Abdominal pain with increased girth Endometrial carcinoma with metastatic disease Mood disorder, schizoaffective disorder NIDDM Hypertension GERD Hypothyroid Overactive bladder Thrombocytopenia DISCHARGE DIAGNOSES: 1. Metastatic endometrial cancer with malignant ascites COMPLICATIONS/CHIEF COMPLAINT: Ascites, Ileus. HISTORY OF PRESENT ILLNESS: 59-year-old W with a medical history significant for metastatic endometrial carcinoma, schizophrenia/bipolar, NIDDM, GERD, hypothyroid, who presented to the emergency department with chief complaint of abdominal pain, distention and N/V and constipation, after last therapeutic paracentesis on 10/09/20 in which 8300 L of fluid was removed. HOSPITAL COURSE: She was ultimately determined to be having constipation 2/2 to an ileus with tense malignant ascites for which she received an LVPduring which 9L were removed on 10/21 and she is now being discharged home after 24h observation post LVP. Of note, she declined albumin citing taoist reasons. DISCHARGE MEDICATIONS: Please see below. ALLERGIES: Please see below. PHYSICAL EXAMINATION ON DISCHARGE: VITAL SIGNS: Please see below. GENERAL APPEARANCE: NAD, resting in bed. AAOx3 HEENT: AT/NC, EOMI, mucous members are moist, trachea midline, no appreciable JVD CARDIOVASCULAR: S1S2 +, no M/R/G LUNGS: CTAB, but no W/R/R ABDOMEN: Normoactive sounds. non tender abdomen. Obese, now much softer. EXTREMITIES: Patient is able to move all externally is equally bilaterally. Trace edema in b/l lower ext. NEUROLOGICAL: Cranial nerves and strength grossly intact. PSYCHIATRIC: Mood and affect are appropriate. LABORATORY DATA: See below. MICROBIOLOGY: BCx x 2 sets: NG at 24 hours IMAGING: KUB 10/18/20: Nonspecific bowel gas pattern. Abdomen/pelvis CT (10/17/20): 1. Since 08/31/2020 there has been development of massive ascites through the abdomen and pelvis most consistent with malignant ascites in a patient with previous endometrial carcinoma. 2. 7 cm oval mass at the posterior right lung base and 3 cm oval mass left lung base. Mass on the right is mixed solid and cystic. These are most consistent with metastatic lesions at the lung bases which have mildly increased since November. 3. Interval development of subcutaneous edema through the abdomen and pelvis. 4. Moderate constipation. 5. Severe splenomegaly developing since November. 6. Secretions through the small bowel with air-fluid levels consistent with ileus. 7. Striated appearance of the anterior mesentery probably secondary to lymphangitic spread of carcinoma or edema. PROGNOSIS: Fair to Poor given advanced malignancy ACTIVITY: As tolerated. DIET: Regular as tolerated DISCHARGE PLAN: Home DISPOSITION: Home, Self-Care. DISCHARGE INSTRUCTIONS: 1. Home with PCP and oncology follow up ITEMS TO FOLLOWUP ON ON OUTPATIENT: 1. Malignant ascites and endometrial CA DISCHARGE CONDITION: Stable TIME SPENT ON DISCHARGE: 41 minutes. Vital Signs/I&Os Vital Signs Date Time Temp Pulse Resp B/P (MAP) Pulse Ox O2 Delivery O2 Flow Rate FiO2 10/22/20 06:00 96.9 87 18 124/96 (105) 97 Room Air I&O- Last 24 Hours up to 6 AM 10/22/20 06:00 Intake Total 1710 ml Output Total 450 ml Balance 1260 ml Laboratory Data Labs 24H Laboratory Tests 2 10/21/20 19:35: Bedside Glucose (Misc Panel) 119H 10/22/20 08:15: Bedside Glucose (Misc Panel) 163H 10/22/20 11:32: Bedside Glucose (Misc Panel) 145H FSBS Laboratory Tests Test 10/21/20 19:35 10/22/20 08:15 10/22/20 11:32 Range/Units Bedside Glucose (Misc Panel) 119 163 145 70-105 MG/DL Microbiology Microbiology 10/21/20 Acid Fast Stain, Received Pending 10/21/20 Mycobacterial Culture, Received Pending 10/21/20 Fungal Smear, Received Pending 10/21/20 Fungal Culture, Received Pending 10/21/20 Gram Stain - Final, Resulted 10/21/20 Body Fluid Culture, Resulted Pending 10/18/20 Blood Culture - Preliminary, Resulted No Growth after 72 hours. All specime... 10/18/20 Blood Culture - Preliminary, Resulted No Growth after 72 hours. All specime... 10/17/20 Urine Culture - Final, Complete Discharge Medications Scheduled Alogliptin Benzoate (Nesina) 12.5 Mg Tablet, 12.5 MG PO DAILY, (Reported) Cholecalciferol (Vitamin D3) (Vitamin D3) 50 Mcg Tablet, 50 MCG PO BID, (Reported) Ferrous Sulfate (Ferrous Sulfate) 325 Mg Tablet, 325 MG PO 3XW, (Reported) TUESDAY,TUESDAY, TUESDAY Lenvatinib Mesylate (Lenvima) 1 Each Capsule, 20 MG PO DAILY 10 mg tab take 2 tabs by mouth daily Levothyroxine Sodium (Synthroid) 100 Mcg Tablet, 100 MCG PO QAM, (Reported) Magnesium Oxide (Magnesium) 400 Mg Capsule, 400 MG PO BID, (Reported) Paliperidone (Invega) 3 Mg Tab.er.24, 3 MG PO QHS, (Reported) Potassium Chloride (Potassium Chloride) 10 Meq Tab, 20 MEQ PO BID, (Reported) Quetiapine Fumarate (Quetiapine Fumarate) 50 Mg Tablet, 50 MG PO QPM, (Reported) Rosuvastatin Calcium (Crestor) 40 Mg Tablet, 40 MG PO QHS, (Reported) Sulfamethoxazole/Trimethoprim (Sulfamethoxazole-Tmp Ds Tablet) 1 Each Tablet, 1 TAB PO DAILY, (Reported) Trospium Chloride (Trospium Chloride) 20 Mg Tablet, 20 MG PO BID, (Reported) Scheduled PRN Clonazepam (Clonazepam) 0.25 Mg Tab.rapdis, 0.25 MG PO DAILY PRN for ANXIETY, (Reported) Cyclobenzaprine HCl (Cyclobenzaprine HCl) 10 Mg Tablet, 10 MG PO TID PRN for MUSCLE SPASMS, (Reported) Ondansetron HCl (Ondansetron HCl) 8 Mg Tablet, 8 MG PO Q6H PRN for NAUSEA OR VOMITING, (Reported) Oxycodone HCl (Oxycodone HCl) 5 Mg Tablet, 5 MG PO Q4HP PRN for pain, (Reported) Allergies Coded Allergies: bee venom protein (honey bee) (Verified Allergy, Unknown, 02/12/20) aspirin (Verified Adverse Reaction, Unknown, sensitive, 02/12/20) CHICHI PAK MD Oct 22, 2020 19:32
== END 2020-10-22 13:28 | disposition home or self-care (01) | DRG 375 ==
LOC: M ED 16:52 → M ED INP 10-18 00:46 → ENRESERV 10-18 02:36 → M MSPAV 10-18 03:24
PROVIDERS: ADMIT Internal Medicine; ATTEND Internal Medicine
PROC: 0W9G3ZZ Drainage of Peritoneal Cavity, Percutaneous Approach (ICD-10-PCS; principal; 2020-10-21 09:11)
DX: C78.6 Secondary malignant neoplasm of retroperitoneum and peritoneum (principal); C78.01 Secondary malignant neoplasm of right lung; C78.02 Secondary malignant neoplasm of left lung; R18.0 Malignant ascites; N39.0 Urinary tract infection, site not specified; D61.818 Other pancytopenia; C77.2 Secondary and unspecified malignant neoplasm of intra-abdominal lymph nodes; K56.7 Ileus, unspecified; C54.1 Malignant neoplasm of endometrium; F20.9 Schizophrenia, unspecified; F31.9 Bipolar disorder, unspecified; E77.8 Other disorders of glycoprotein metabolism; E11.9 Type 2 diabetes mellitus without complications; I10 Essential (primary) hypertension; K21.9 Gastro-esophageal reflux disease without esophagitis; N32.81 Overactive bladder; E03.9 Hypothyroidism, unspecified; F17.200 Nicotine dependence, unspecified, uncomplicated; Z79.899 Other long term (current) drug therapy; Z91.030 Bee allergy status; Z88.6 Allergy status to analgesic agent; Z20.828 Contact with and (suspected) exposure to other viral communicable diseases

== ENCOUNTER 2020-11-03 10:51 | Outpatient (RCR) | payer OTHER ==
[~2020-11-03 10:51] MED LIST changes: +FERR1TAB8 PO; +TROS20TA3 PO
--- NOTE | 2020-11-05 09:51 | RADENCPD ---
Date/Time of Encounter Date of Encounter: Nov 05, 2020 Time of Encounter: 09:48 Encounter Isabel called to postpone RT to her RLL metastasis, she has been experiencing nausea, vomiting and discomfort from her malignant ascites, which continues to reaccumulate rapidly. As she is not having hemoptysis currently from the lesion (she was previously), I think it is reasonable to postpone. We agreed that she will come back on 12/01/20 and resume her treatments. I will discount the single fraction she received and proceed with an additional 30 Gy in 10 fractions as adam rudd. In the meantime she has medical oncology follow up. She will call me if her hemoptysis resumes, and I will then resume her treatments immediately. YOVANNY CARNEY MD Nov 05, 2020 09:51
[2020-11-19] MEDS ORDERED: FURO20TA2 (10:59)
== END 2020-11-27 ==
LOC: M ONCR 10:51
PROVIDERS: ATTEND General Practice
DX: C78.01 Secondary malignant neoplasm of right lung (principal)

== ENCOUNTER 2020-11-19 10:47 | Emergency (ER) | payer OTHER ==
[~2020-11-19] VITALS: Ht 167.6 cm; Wt 100.7 kg
[~2020-11-19 10:47] MED LIST changes: +GABA-282 PO; -GABA-843 PO
[2020-11-19] MEDS ORDERED: FURO20TA2 (10:59)
--- NOTE | 2020-11-19 12:07 | REP ---
INDICATION: head injury COMPARISON: 02/01/2020 TECHNIQUE: Axial noncontrast images from the skull base to the thoracic inlet with coronal reformations. This CT examination was performed using the following dose reduction techniques: Automated exposure control, adjustment of mA and/or kv according to the patient's size, and use of iterative reconstruction technique. FINDINGS: Age-related atrophy and microvascular ischemic changes are appreciated. The ventricles and sulci are symmetric. Rivera-white differentiation is maintained. There is no evidence for acute intracranial hemorrhage, mass/mass effect, pathology or infarction. No extra-axial fluid collection. Calvarium is intact. Paranasal sinuses and mastoid air cells are clear. IMPRESSION: Age related atrophy and microvascular ischemic changes. No acute intracranial pathology or trauma/injury. <Electronically signed by Saúl Ott > 11/19/20 [id number]
[2020-11-19 12:35] LABS: BASO % 0.4 % (0.0-1.0); EOS % 1.7 % (0.0-3.0); HEMATOCRIT 30.9 % (36.0-47.0); HEMOGLOBIN 9.3 g/dl (12.0-15.5); LYMPH # 0.3 10^3/uL (1.5-5.0); LYMPH % 11.7 % (24.0-44.0); MEAN CORPUSCULAR HEMOGLOBIN 27.3 pg (27.0-33.0); MEAN CORPUSCULAR HGB CONC 30.1 g/dl (32.0-36.5); MEAN CORPUSCULAR VOLUME 90.6 fl (80.0-96.0); MONO # 0.2 10^3/uL (0.0-0.8); MONO % 8.3 % (0.0-5.0); NEUTROPHILS # 1.9 10^3/uL (1.5-8.5); NEUTROPHILS % 77.5 % (36.0-66.0); RED BLOOD COUNT 3.41 10^6/uL (4.00-5.40); WHITE BLOOD COUNT 2.4 10^3/uL (4.0-10.0)
[2020-11-19 12:37] LABS: PLATELET COUNT, AUTOMATED 74 10^3/uL (150-450)
[2020-11-19 12:44] LABS: INR 0.96
[2020-11-19 12:45] LABS: PARTIAL THROMBOPLASTIN TIME 33.5 SECONDS (24.2-38.5)
--- NOTE | 2020-11-19 12:54 | REP ---
INDICATION: bilateral lower leg swelling; L>R COMPARISON: None. TECHNIQUE: Rivera scale and color Doppler evaluation of the bilateral lower extremities using linear high frequency transducer. FINDINGS: Ultrasound examination of the right and left lower extremity deep venous structures from the common femoral vein to the popliteal vein demonstrates normal compressibility flow and wave patterns in response to respiration and augmentation. There is no evidence for deep venous thrombosis. IMPRESSION: No evidence for deep venous thrombosis. <Electronically signed by Saúl Ott > 11/19/20 [id number]
--- NOTE | 2020-11-19 12:56 | REP ---
INDICATION: ascites/pain COMPARISON: None. TECHNIQUE: Real time lyn scale ultrasound examination using curved array transducer. FINDINGS: Generalized ultrasound examination through the 4 quadrants of the abdomen and pelvis demonstrates moderate amount of ascites. IMPRESSION: Moderate amount of ascites noted throughout the abdomen and pelvis. <Electronically signed by Saúl Ott > 11/19/20 [id number]
[2020-11-19 13:09] LABS: ALBUMIN 2.2 GM/DL (3.2-5.2); ALT/SGPT 13 U/L (12-78); BILIRUBIN,DIRECT < 0.1 MG/DL (0.0-0.2); BILIRUBIN,TOTAL 0.4 MG/DL (0.2-1.0); BLOOD UREA NITROGEN 7 MG/DL (7-18); CALCIUM LEVEL 8.6 MG/DL (8.5-10.1); CARBON DIOXIDE LEVEL 30 MEQ/L (21-32); CHLORIDE LEVEL 106 MEQ/L (98-107); CK-MB VALUE MASS < 1.0 NG/ML (<3.6); CPK CREATINE PHOSPHOKINASE 111 U/L (26-192); CREATININE FOR GFR 0.85 MG/DL (0.55-1.30); GLOMERULAR FILTRATION RATE > 60.0 (>51); GLUCOSE, FASTING 123 MG/DL (70-100); NT-PRO BNP 225 PG/ML (<125); POTASSIUM SERUM 4.6 MEQ/L (3.5-5.1); SODIUM LEVEL 141 MEQ/L (136-145); TOTAL PROTEIN 5.5 GM/DL (6.4-8.2); TROPONIN I < 0.02 NG/ML (< 0.10)
--- NOTE | 2020-11-19 13:23 | REP ---
INDICATION: ascites;SOB COMPARISON: 04/30/2020 TECHNIQUE: Portable AP view of the chest FINDINGS: The mediastinum and cardiac silhouette are stable and within normal limits for portable technique. [id number] with tip in the SVC. Mass at the right base is again noted. Remainder lung morejon are clear. No acute consolidation, effusion, or pneumothorax. Skeletal structures are intact. IMPRESSION: 1. Mass at the right base again noted. 2. No acute cardiopulmonary process. <Electronically signed by Saúl Ott > 11/19/20 [id number]
--- NOTE | 2020-11-19 13:24 | REP ---
INDICATION: fall injury; left hip pain COMPARISON: None. TECHNIQUE: AP and frog-lateral views of the left hip FINDINGS: Early advanced osteoarthritic degenerative changes include sclerosis to the acetabulum, mild subchondral heterogeneity, joint space narrowing, and osteophyte formation along the acetabulum and femoral head. Enthesopathy along the contour of the visualized left hemipelvis and femoral trochanters noted. No acute fracture or dislocation identified IMPRESSION: Early advanced osteoarthritic degenerative changes. No obvious acute fracture or dislocation. <Electronically signed by Saúl Ott > 11/19/20 [id number]
[2020-11-19] MEDS ORDERED: SODIUM BICARBONATE 8.4% INJ 50MEQ 50 ML VIAL As Ordered ONE (15:28)
[2020-11-19 17:44] VITALS: BP 127/68
--- NOTE | 2020-11-21 07:31 | ECGEPIP ---
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
--- NOTE | 2020-12-01 08:54 | REP ---
INDICATION: ascites The patient has a history of ascites COMPARISON: None. TECHNIQUE: The procedure was performed by SARITA Mai, under the direct supervision of Dr. Rivera The risks and benefits of the procedure were explained to the patient and an informed consent was obtained both verbally and written. Directly prior to the start of the procedure a formal time-out was completed in the procedure room. The largest pocket of fluid was localized in the right flank using ultrasound guidance. The skin was prepped and draped in a sterile fashion. Eleven ML of buffered lidocaine 1% lidocaine 10 mg/ml was used as a local anesthetic. An 8-Persian multi side-hole catheter was inserted using trocar technique. FINDINGS: 8200 mL of light green ascites was removed and discarded. The patient tolerated the procedure well and there were no immediate complications. After the appropriate amount of monitored convalescence, the patient was discharged from the department. IMPRESSION: Ultrasound-guided paracentesis with removal of 8200 mL of light green ascites. <Electronically signed by Brenna Power > 11/19/20 1714 <Electronically signed by Alex Rivera > 12/01/20 [id number]
== END 2020-11-19 17:46 | disposition home or self-care (01) ==
LOC: M ED 10:47
DX: C78.00 Secondary malignant neoplasm of unspecified lung (principal); C54.1 Malignant neoplasm of endometrium; R18.0 Malignant ascites; S09.90XA Unspecified injury of head, initial encounter; S70.02XA Contusion of left hip, initial encounter; E78.5 Hyperlipidemia, unspecified; F31.9 Bipolar disorder, unspecified; G43.909 Migraine, unspecified, not intractable, without status migrainosus; R94.31 Abnormal electrocardiogram [ECG] [EKG]; R00.0 Tachycardia, unspecified; W19.XXXA Unspecified fall, initial encounter; Y93.9 Activity, unspecified; Y92.9 Unspecified place or not applicable; Y99.9 Unspecified external cause status; Z88.6 Allergy status to analgesic agent; Z90.710 Acquired absence of both cervix and uterus; Z91.030 Bee allergy status; Z95.828 Presence of other vascular implants and grafts

== ENCOUNTER → 2020-11-25 | Outpatient (CLI) | payer OTHER ==
[~2020-11-25] MED LIST changes: +FURO20TA2; -GABA-282 PO; +GABA-843 PO; +SODIUM BICARBONATE 8.4% INJ 50MEQ 50 ML VIAL As Ordered ONE
[2020-11-25 12:57] VITALS: BP 110/65
[2020-11-25 13:29] LABS: APPEARANCE, BODY FLUID CLEAR (CLEAR); ASCITES FL COLOR PALE YELLOW (COLORLESS); SOURCE, BODY FLUID ASCITES
[2020-11-25 13:37] LABS: CREATININE BF 0.6 MG/DL (NOT ESTABLISHED); SOURCE, BODY FLUID ALBUMIN ASCITES; SOURCE, BODY FLUID CREATININE ASCITES; SOURCE, BODY FLUID TOT PROTEIN ASCITES; TOTAL PROTEIN, BODY FLUID 2.4 G/DL (NOT ESTABLISHED)
--- NOTE | 2020-11-25 16:31 | REP ---
INDICATION: ASCITES. COMPARISON: None. TECHNIQUE: The procedure was performed under the direct supervision of Dr. Soto. The risks and benefits of the procedure were explained to the patient and informed consent was obtained. The largest pocket of fluid was localized in the right flank using ultrasound guidance. The skin was prepped and draped in a sterile fashion. 1% lidocaine was used as a local anesthetic. Using ultrasound guidance, an 8-Argentine multi side-hole catheter was inserted using trocar technique. 2950 cc of yellow fluid was withdrawn with a sample sent to the lab for analysis. FINDINGS: 2950 cc of yellow fluid was withdrawn with a sample sent to the lab for analysis IMPRESSION: Ultrasound-guided paracentesis yielding 2950 cc of yellow fluid. <Electronically signed by Jonathan Mckeon > 11/25/20 1610 <Electronically signed by Zurdo Soto > 11/25/20 1623
== END ==
LOC: M IRPRO 11:47
PROVIDERS: ATTEND Internal Medicine Gastroenterology
DX: R18.8 Other ascites (principal)

== ENCOUNTER 2020-12-15 11:00 | Outpatient (RCR) | payer OTHER ==
[~2020-12-15 11:00] MED LIST changes: +GABA-282 PO; -GABA-843 PO; -SODIUM BICARBONATE 8.4% INJ 50MEQ 50 ML VIAL As Ordered ONE
[2020-12-29] MEDS ORDERED: SENO8.6T10 PO (09:32)
== END 2020-12-28 ==
LOC: M ONCR 11:00
PROVIDERS: ATTEND General Practice
DX: C78.01 Secondary malignant neoplasm of right lung (principal); C54.1 Malignant neoplasm of endometrium; R18.8 Other ascites

== ENCOUNTER → 2021-05-27 | Outpatient (CLI) | payer OTHER ==
[~2021-05-27] MED LIST changes: +BACTDSTA PO; -FURO20TA2; +FURO20TA2 PO; +QUET200T2 PO; +QUET50TA3 PO; -QUET5TAB PO; +SENO8.6T10 PO; -SULF1TAB93 PO
--- NOTE | 2021-05-28 07:31 | ECGEPIP ---
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 Low voltages Incomplete LBBB Subtle inferoapical ST scooping No change from 11/19/20 Electronically Signed on 05-28-2021 7:31:15 EDT by Werner Lopez
== END ==
LOC: M EKG 16:32
PROVIDERS: ATTEND Internal Medicine Medical Oncology
DX: C54.1 Malignant neoplasm of endometrium (principal)

== ENCOUNTER → 2021-06-25 | Outpatient (CLI) | payer OTHER ==
--- NOTE | 2021-06-25 14:39 | REP ---
INDICATION: ENDOMETRIAL CA. COMPARISON: None. TECHNIQUE/RADIOTRACER AND DOSE: 21.7 mCi of Technetium-99m MDP was injected and standard whole-body bone scanning is acquired. FINDINGS: There is normal distribution of skeletal tracer with uptake in bilateral kidneys and in the urinary bladder. There is osteoarthritic uptake noted in the knees bilaterally. Mild increased uptake is seen in the hips, left a little more prominent than right but no focus of increased uptake is seen to suggest metastatic disease. On review of CT study of the pelvis from April there is moderate left hip osteoarthritis more pronounced than right. No abnormal soft tissue uptake is seen. IMPRESSION: There is no evidence to suggest skeletal metastatic disease.. <Electronically signed by Zurdo Soto > 06/25/21 1956
== END ==
LOC: M RAD 10:38
PROVIDERS: ATTEND Internal Medicine Medical Oncology
DX: C54.1 Malignant neoplasm of endometrium (principal)
CPT/HCPCS: 78306; A9503

== ENCOUNTER → 2021-06-29 | Outpatient (CLI) | payer OTHER ==
--- NOTE | 2021-06-29 20:33 | REP ---
INDICATION: RESTAGING ENDOMETRIAL CANCER C54.1. COMPARISON: PET-CT scan dated 08/29/2019, chest CT dated 05/14/2021 Abdomen/pelvis CT dated 05/14/2021. TECHNIQUE: The study is performed with 10.3 mCi of F 18 FDG. FINDINGS: Neck and [place] supraclavicular areas: There are no hypermetabolic foci. Chest: The known right lower lobe lung mass is again identified. The small right pleural effusion is again identified. A large zone centrally within the right lower lobe lung mass demonstrates no rib radial labeling compatible with central necrosis. There is hypermetabolic uptake at the periphery of the right lower lobe lung mass with a maximal standard uptake value of 5.21. Previously the standard uptake value wall in this area was 4.97. There is a small right middle lobe lung nodule, unchanged in size and demonstrating none hypermetabolic uptake with a standard uptake value of 1.1. This measured 1.46 previously. There is a mass in the medial segment of the left lower lobe that has increased in size. There is a small focal zone of hypermetabolic uptake medially within this mass with a maximum standard uptake value of 8.18. Previously the maximal standard uptake value within this mass is 2.85. There are no mediastinal, hilar or axillary foci. Abdomen, pelvis and upper thighs: No hepatic, adrenal or peritoneal foci are identified. No periaortic, iliac or femoral foci are identified. No pelvic foci are identified. There is nonspecific bowel uptake. IMPRESSION: There is uptake in the known right lower lobe of lung mass as described above. There are findings compatible with a larger zone of central necrosis within this mass as described. There is hypermetabolic uptake in the known left lower lobe lung nodule. There is a small right pleural effusion with no evidence of uptake. No aparna uptake is identified in the chest, abdomen or pelvis. <Electronically signed by Alex Robledo > 06/29/212028
== END ==
LOC: M PLARAD 11:11
PROVIDERS: ATTEND Internal Medicine Medical Oncology
DX: R91.8 Other nonspecific abnormal finding of lung field (principal); R93.89 Abnormal findings on diagnostic imaging of other specified body structures; C54.1 Malignant neoplasm of endometrium
CPT/HCPCS: 78815; A9552

== ENCOUNTER → 2021-09-11 | Outpatient (CLI) | payer OTHER ==
[~2021-09-11] MED LIST changes: -QUET50TA3 PO; +QUET50TA4 PO
--- NOTE | 2021-09-11 11:33 | RADONC ---
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 She has continued on lenvatinib and keytruda with Dr. Ramirez and has positive response in the peritoneal disease. She has however developed a PET-CT avid recurrence in the periphery of the treated RLL metastasis, and also a new LLL metastasis. She is seen for consideration of reirradiation to address these lung oligometastases. Diagnosis/Treatment History Oncologic History TREATMENT HISTORY: JEANMARIE-BSO 08/2016: [id number]. 2017 recurrence, dominant L pelvic mass, right lung mass Carboplatin/paclitaxel six cycles 11/16/2016 - 03/01/2017 Adjuvant pelvic radiation 45 Gy in 25 fractions 04/27/2017 - 06/02/2017 Pembrolizumab 12/30/2017 - 03/15/2019; major DE, followed by lung progression pleural based lung biopsy 03/30/2019 consistent with metastatic poorly differentiated adenocarcinoma, ER positive, PAX8 positive, DE, TTF1, Napsin A negative consistent with metastatic adenocarcinoma of endometrial primary. Tamoxifen/megestrol February 2019 - Aug 2019, DE followed by progression Carboplatin/paclitaxel/bevacizumab six cycles 09/11/2019-02/29/2020. Paclitaxel dropped cycle 6 due to peripheral neuropathy. Maintenance bevacizumab 03/24/2020 to 07/07/2020 stopped for worsening hemoptysis and disease progression. CURRENT THERAPY: Pembrolizumab started 09/12/2020 and lenvatinib started 08/2020 for disease progression based on CT chest 07/23/2020 showing disease progression in lung/chest metastases. Recent data: 06/29/21 PET-CT IMPRESSION: There is uptake in the known right lower lobe of lung mass as described above. There are findings compatible with a larger zone of central necrosis within this mass as described. There is hypermetabolic uptake in the known left lower lobe lung nodule. There is a small right pleural effusion with no evidence of uptake. No aparna uptake is identified in the chest, abdomen or pelvis. Interval History Isabel reports she has nausea every day. Some vomiting with this. Zofran helps but taking as needed only. She has no concern for ascites or swelling in the legs. This is much improved on her current regimen. She has no chest pain, but does feel some SOB and general fatigue which is stable. No active hallucinations recently. Current Therapy Lenvatinib/pembrolizumab Stage Stage IV endometrial cancer with peritoneal mets and lung metastases Social History: Current smoker 23 pk year Occasionally drinks alcohol Asbestos exposure history Allergies / Meds Allergies: Coded Allergies: bee venom protein (honey bee) (Verified Allergy, Unknown, 02/12/20) aspirin (Verified Adverse Reaction, Unknown, sensitive, 02/12/20) Home Meds Active Scripts Lenvatinib Mesylate (Lenvima) 1 Each Capsule, 14 MG PO DAILY for 30 Days, #30 CAP Prov:LINWOOD RAMIREZ MD FACP 07/21/21 Ondansetron HCl (Ondansetron HCl) 8 Mg Tablet, 8 MG PO Q8HP PRN for NAUSEA OR VOMITING MDD 3, #120 TAB 1 Refill Prov:LINWOOD RAMIREZ MD FACP 04/30/21 Sennosides/Docusate Sodium (Senokot-S Tablet) 1 Each Tablet, 1 TAB PO BID PRN for CONSTIPATION for 30 Days, #60 TAB 2 Refills Prov:LINWOOD RAMIREZ MD FACP 12/29/20 Reported Medications Quetiapine Fumarate (Quetiapine Fumarate) 200 Mg Tablet, 1 TAB PO QPM for 30 Days, #30 TAB 05/27/21 Furosemide (Furosemide) 20 Mg Tablet, 1 TAB PO DAILY 11/19/20 Ferrous Sulfate (Ferrous Sulfate) 325 Mg Tablet, 325 MG PO 3XW TUESDAY,TUESDAY, Tuesday10/18/20 Oxycodone HCl (Oxycodone HCl) 5 Mg Tablet, 5 MG PO Q4HP PRN for pain 09/12/20 Magnesium Oxide (Magnesium) 400 Mg Capsule, 400 MG PO BID 07/16/20 Sulfamethoxazole/Trimethoprim (Sulfamethoxazole-Tmp Ds Tablet) 1 Each Tablet, 1 TAB PO DAILY, TAB 07/16/20 Clonazepam (Clonazepam) 0.25 Mg Tab.rapdis, 0.25 MG PO DAILY PRN for ANXIETY 07/16/20 Paliperidone (Invega) 3 Mg Tab.er.24, 3 MG PO TID 05/26/20 Levothyroxine Sodium (Synthroid) 100 Mcg Tablet, 100 MCG PO QAM 02/29/20 Rosuvastatin Calcium (Crestor) 40 Mg Tablet, 40 MG PO QHS, TAB 02/12/20 Cyclobenzaprine HCl (Cyclobenzaprine HCl) 10 Mg Tablet, 10 MG PO TID PRN for MUSCLE SPASMS, TAB 02/12/20 Alogliptin Benzoate (Nesina) 12.5 Mg Tablet, 12.5 MG PO DAILY, TAB 02/12/20 Potassium Chloride (Potassium Chloride) 10 Meq Tab, 20 MEQ PO BID, TAB 12/05/18 Review of Systems Review of Systems Constitutional: Reports: Fatigue; Denies: Weight Loss Eyes: Denies: Pain HEENT: Denies: Head Aches Skin: Denies: Rash, Lesions Pulmonary: Reports: Dyspnea; Denies: Cough, Pleuritic Chest Pain Cardiovascular: Denies: Chest Pain, Palpitations, Edema Gastrointestinal: Reports: Nausea, Vomiting; Denies: Abdominal Pain, Diarrhea Musculoskeletal: Denies: Neck pain, Back pain Neurological: Denies: Weakness, Numbness Psych: Reports: Mood Normal Physical Examination Vital Signs Wt 230 lbs T 98 P 109 RR 20 BP 122/75 O2 93% Pain 0 Fatigue 2 General Exam: Alert, Cooperative, No Acute Distress Eye Exam: PERRLA, EOMI ENT EXAM: Atraumatic Neck Exam: Supple Chest Exam: Clear to auscultation, Other (RLL pleural rub in lower field, remainder of breath sounds normal) Heart Exam: Rate Normal, Regular Rhythm Abdomen Exam: Soft; Negative: Other (No ascites) Extremity Exam: Negative: Edema Neuro Exam: Normal Gait, Normal Speech, Cranial Nerves 3-12 NL Psych Exam: Mental status NL Diagnostic and Laboratory Diagnostic Review Radiologic images, relevant labs and pathology reports were personally reviewed and discussed with Ms. Orellana. Assessment and Plan Impression Assessment Ms. 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 She has continued on lenvatinib and keytruda with Dr. Ramirez and has positive response in the peritoneal disease. She has however developed a PET-CT avid recurrence in the periphery of the treated RLL metastasis, and also a new LLL metastasis. She is seen for consideration of reirradiation to address these lung oligometastases. She has limited progression in the periphery of the previously treated RLL lesion and a small new LLL lesion, these are the only foci of PET-CT avid disease. Her malignant ascites has resolved completely. The lesions are in the same axial plane and at the lung bases which is a convenient location for simultaneous treatment. This time, now that she has an otherwise excellent response to the current systemic therapy I propose that we employ an ablative approach. I will use VMAT to retreat the area and respect lung and more importantly, spinal cord tolerances. I imaging 50-60 Gy in 10 fractions will be feasible. We reviewed the risks of fatigue, fibrosis and pneumonitis associated with this approach. She would like to proceed. Simulation with 4D/ITV approach can occur in the coming 1-2 weeks. She can continue the lenvatinib and keytruda for now. These have been studied in concert with RT and have been shown to be safe in combination with RT. She does have lenvatinib associated nausea, I suggested she take zofran 8 mg TID in effort to prevent nausea before it manifests, she has tolerated this dose previously so I have no concern with respect to interaction with her other medications. Sent prescription reflecting this change to the [place] pharmacy. Performance Status ECOG 1 Plan RT to the RLL and LLL lesions 50-60 Gy in 10 fractions with VMAT (reirradiation) 4DCT/ITV Simulation in the next 1-2 weeks Start zofran 8 mg TID for lenvatinib associated nausea Ms. Orellana was encouraged to call with questions or concerns in the interim period. Billing Statement Total time of [35] minutes was spent preparing for the visit [2], obtaining HPI [5], examining the patient [4], reviewing diagnostic tests [6], discussing management options [7], coordinating care [3], and writing this note [8]. YOVANNY CARNEY MD Sep 11, 2021 11:32
== END ==
LOC: M ONCR 10:01
PROVIDERS: ATTEND General Practice
DX: C54.1 Malignant neoplasm of endometrium (principal); C78.6 Secondary malignant neoplasm of retroperitoneum and peritoneum; R18.0 Malignant ascites; C78.01 Secondary malignant neoplasm of right lung; C78.02 Secondary malignant neoplasm of left lung; F17.210 Nicotine dependence, cigarettes, uncomplicated; Z77.090 Contact with and (suspected) exposure to asbestos; Z92.3 Personal history of irradiation

== ENCOUNTER 2021-09-17 09:00 | Outpatient (RCR) | payer OTHER ==
[2021-09-18] MEDS ORDERED: LENV10CA PO (11:50)
== END 2021-09-27 ==
LOC: M ONCR 09:00
PROVIDERS: ATTEND General Practice
DX: C78.01 Secondary malignant neoplasm of right lung (principal)

== ENCOUNTER 2021-10-07 15:37 | Outpatient (RCR) | payer OTHER ==
[~2021-10-07 15:37] MED LIST changes: -CEFD1CAP8 PO; +CEFD300C41 PO; +ONDA-84 PO; -ONDA8TAB10 PO; +POTA-149 PO; -POTA10TA16 PO; -PROC10TA4 PO; +PROC10TA5 PO
== END 2021-10-27 ==
LOC: M ONCR 15:37
PROVIDERS: ATTEND General Practice
DX: C78.01 Secondary malignant neoplasm of right lung (principal); C54.1 Malignant neoplasm of endometrium

== ENCOUNTER → 2022-05-07 | Outpatient (CLI) | payer OTHER ==
[~2022-05-07] MED LIST changes: +EPIP0.3I2 IM
== END ==
LOC: M RAD 13:48
PROVIDERS: ATTEND Otolaryngology
DX: J32.9 Chronic sinusitis, unspecified (principal)

== ENCOUNTER 2022-05-12 11:03 | Emergency (ER) | payer OTHER ==
[~2022-05-12] VITALS: Ht 167.6 cm; Wt 93.2 kg
[2022-05-12 12:10] LABS: HEMATOCRIT 41.8 % (36.0-47.0); HEMOGLOBIN 13.3 g/dl (12.0-15.5); MEAN CORPUSCULAR HEMOGLOBIN 28.1 pg (27.0-33.0); MEAN CORPUSCULAR HGB CONC 31.8 g/dl (32.0-36.5); MEAN CORPUSCULAR VOLUME 88.2 fl (80.0-96.0); PLATELET COUNT, AUTOMATED 214 10^3/uL (150-450); RED BLOOD COUNT 4.74 10^6/uL (4.00-5.40); WHITE BLOOD COUNT 7.9 10^3/uL (4.0-10.0)
[2022-05-12 12:37] LABS: AMPHETAMINES LEVEL URINE NEGATIVE (NEGATIVE); BARBITURATES URINE NEGATIVE (NEGATIVE); BENZODIAZEPINES URINE NEGATIVE (NEGATIVE); CANNABINOIDS URINE NEGATIVE (NEGATIVE); COCAINE METABOLITE URINE NEGATIVE (NEGATIVE); METHADONE URINE NEGATIVE (NEGATIVE); OPIATES URINE NEGATIVE (NEGATIVE); PHENCYCLIDINE URINE NEGATIVE (NEGATIVE)
[2022-05-12 12:45] LABS: RSV AMPLIFICATION NEGATIVE (NEGATIVE)
[2022-05-12 12:45] LABS: ACETAMINOPHEN LEVEL 3.2 UG/ML (10.0-30.0); ALBUMIN 3.3 GM/DL (3.2-5.2); ALT/SGPT 32 U/L (12-78); BILIRUBIN,DIRECT < 0.1 MG/DL (0.0-0.2); BILIRUBIN,TOTAL 0.3 MG/DL (0.2-1.0); BLOOD UREA NITROGEN 11 MG/DL (7-18); CALCIUM LEVEL 10.3 MG/DL (8.8-10.2); CARBON DIOXIDE LEVEL 26 MEQ/L (21-32); CHLORIDE LEVEL 105 MEQ/L (98-107); CREATININE FOR GFR 0.76 MG/DL (0.55-1.30); ETHYL ALCOHOL (ETHANOL) 0.004 % (0.000-0.010); GLOMERULAR FILTRATION RATE > 60.0 (>45); GLUCOSE, FASTING 168 MG/DL (70-100); SODIUM LEVEL 141 MEQ/L (136-145); TOTAL PROTEIN 7.3 GM/DL (6.4-8.2)
[2022-05-12] MEDS ORDERED: clonazePAM 0.5 MG TAB PO ONE (16:20)
[2022-05-12] MEDS ORDERED: PALI1TAB3 PO (20:31)
[2022-05-12] MEDS ORDERED: LEVOTAB10 PO (20:54)
[2022-05-12] MEDS ORDERED: PRAZ1CAP PO (20:54)
[2022-05-12] MEDS ORDERED: VENTAER INH (20:54)
[2022-05-12] MEDS ORDERED: D 1010002 PO (20:54)
[2022-05-12] MEDS ORDERED: CLON0.5T2 PO (20:54)
[2022-05-12] MEDS ORDERED: OMEP1CAP73 PO (20:54)
[2022-05-12] MEDS ORDERED: SYNT125T PO (20:54)
[2022-05-12] MEDS ORDERED: HOME MED LIST COMPLETE! XX SCH (20:55)
[2022-05-12] MEDS ORDERED: CYCLOBENZAPRINE 10MG TABLET PO ONE (22:25)
[2022-05-12] MEDS ORDERED: MAGNESIUM OXIDE 400MG TAB (MAG-OX) PO ONE (22:25)
[2022-05-12] MEDS ORDERED: CETIRIZINE (ZyrTEC) 10 MG TAB PO ONE (22:25)
[2022-05-12] MEDS ORDERED: QUEtiapine FUMARATE 200 MG TAB PO ONE (22:25)
[2022-05-12] MEDS ORDERED: NICOTINE 21MG/24HR 1 EA TRANSDERMAL TD ONE (22:25)
[2022-05-12] MEDS ORDERED: PRAZOSIN 1 MG CAP PO ONE (22:25)
[2022-05-12] MEDS ORDERED: ROSUVASTATIN 10 MG TAB (CRESTOR) PO ONE (22:25)
[2022-05-12] MEDS ORDERED: PALIPERIDONE 6 MG ER TAB (INVEGA) PO ONE (22:25)
[2022-05-12 22:49] VITALS: BP 104/57
[2022-05-12 23:07] VITALS: BP 125/63
== END 2022-05-12 23:09 ==
LOC: M ED 11:03
DX: R45.851 Suicidal ideations (principal); G89.29 Other chronic pain; F31.9 Bipolar disorder, unspecified; F20.9 Schizophrenia, unspecified; E11.9 Type 2 diabetes mellitus without complications; I10 Essential (primary) hypertension; C54.1 Malignant neoplasm of endometrium; F17.200 Nicotine dependence, unspecified, uncomplicated; Z88.6 Allergy status to analgesic agent; Z91.030 Bee allergy status; Z79.899 Other long term (current) drug therapy

== ENCOUNTER → 2022-06-21 | Outpatient (CLI) | payer OTHER ==
[~2022-06-21] MED LIST changes: +CLON0.5T2 PO; +D 1010002 PO; +LEVOTAB10 PO; -MEGE40TA GT; +MEGE40TA3 GT; +OMEP1CAP73 PO; +PALI1TAB3 PO; +PRAZ1CAP PO; +SYNT125T PO; +VENTAER INH
== END ==
LOC: M PLARAD 14:02
PROVIDERS: ATTEND Internal Medicine Medical Oncology
DX: R93.89 Abnormal findings on diagnostic imaging of other specified body structures (principal); C54.1 Malignant neoplasm of endometrium
CPT/HCPCS: 78815; A9552

== ENCOUNTER → 2022-07-30 | Outpatient (CLI) | payer OTHER ==
[~2022-07-30] MED LIST changes: +HALO5TAB33 PO
[2022-07-30 11:50] VITALS: BP 111/60
== END ==
LOC: M IRPRO 08:45
PROVIDERS: ATTEND Internal Medicine Medical Oncology
DX: J90 Pleural effusion, not elsewhere classified (principal)

== ENCOUNTER 2023-01-09 09:12 | Emergency (ER) | payer OTHER ==
[~2023-01-09] VITALS: Ht 167.6 cm; Wt 71.8 kg
[2023-01-09 09:26] VITALS: BP 97/66
[2023-01-11] MEDS ORDERED: GUAI100L6 PO (11:44)
[2023-01-11] MEDS ORDERED: ACET650T3 PO (11:44)
[2023-01-11] MEDS ORDERED: FLON1SPR NARES (11:44)
[2023-01-11] MEDS ORDERED: FLEEENE12 PR (11:44)
[2023-01-11] MEDS ORDERED: MILKSUS3 PO (11:44)
[2023-01-11] MEDS ORDERED: LIDO5DIS41 TOP (11:44)
[2023-01-11] MEDS ORDERED: METH-855 PO (11:44)
== END 2023-01-09 11:39 | disposition home or self-care (01) ==
LOC: EDBD 09:12 → M ED 09:12
DX: S09.90XA Unspecified injury of head, initial encounter (principal); W19.XXXA Unspecified fall, initial encounter; Y92.129 Unspecified place in nursing home as the place of occurrence of the external cause; M19.012 Primary osteoarthritis, left shoulder; M85.811 Other specified disorders of bone density and structure, right shoulder; M47.892 Other spondylosis, cervical region; E11.9 Type 2 diabetes mellitus without complications; I10 Essential (primary) hypertension; F20.9 Schizophrenia, unspecified; F31.9 Bipolar disorder, unspecified; K21.9 Gastro-esophageal reflux disease without esophagitis; Z79.890 Hormone replacement therapy; Z79.899 Other long term (current) drug therapy; Z88.8 Allergy status to other drugs, medicaments and biological substances; Z91.030 Bee allergy status

== ENCOUNTER → 2023-01-10 | Outpatient (REF) | payer OTHER ==
[~2023-01-10] MED LIST changes: +ACET650T3 PO; +FLEEENE12 PR; +FLON1SPR NARES; +GUAI100L6 PO; +LIDO5DIS41 TOP; +METH-855 PO; +MILKSUS3 PO
[2023-01-10 08:45] LABS: HEMATOCRIT 30.3 % (36.0-47.0); HEMOGLOBIN 9.4 g/dl (12.0-15.5); LYMPH # 0.2 10^3/uL (1.5-5.0); MEAN CORPUSCULAR HEMOGLOBIN 28.1 pg (27.0-33.0); MEAN CORPUSCULAR VOLUME 90.4 fl (80.0-96.0); MONO # 0.3 10^3/uL (0.0-0.8); MONO % 8.6 % (2.0-8.0); NEUTROPHILS # 3.2 10^3/uL (1.5-8.5); NEUTROPHILS % 83.9 % (36.0-66.0); PLATELET COUNT, AUTOMATED 152 10^3/uL (150-450); RED BLOOD COUNT 3.35 10^6/uL (4.00-5.40); WHITE BLOOD COUNT 3.8 10^3/uL (4.0-10.0)
[2023-01-10 09:01] LABS: HEMOGLOBIN A1c 5.6 % (4.0-6.0)
[2023-01-10 09:15] LABS: ALBUMIN 2.4 G/DL (3.2-5.2); ALKALINE PHOSPHATASE 134 U/L (46-116); ALT/SGPT 12 U/L (7.0-40); AST/SGOT < 8 U/L (<34); BILIRUBIN,TOTAL 0.3 MG/DL (0.3-1.2); BLOOD UREA NITROGEN 11 MG/DL (9-23); CARBON DIOXIDE LEVEL 28 MMOL/L (20-31); CHLORIDE LEVEL 106 MMOL/L (98-107); CREATININE FOR GFR 0.49 MG/DL (0.55-1.30); GLOMERULAR FILTRATION RATE > 60.0 (>45); GLUCOSE, FASTING 161 MG/DL (74-106); POTASSIUM SERUM 3.5 MMOL/L (3.5-5.1); SODIUM LEVEL 141 MMOL/L (136-145); TOTAL PROTEIN 5.7 G/DL (5.7-8.2)
[2023-01-10 09:16] LABS: FREE T4 1.59 NG/DL (0.89-1.76); THYROID STIMULATING HORMONE 0.591 uIU/ML (0.55-4.78)
== END ==
LOC: SKLAB3 07:00
PROVIDERS: ATTEND Internal Medicine
DX: C54.1 Malignant neoplasm of endometrium (principal); Z79.899 Other long term (current) drug therapy

== ENCOUNTER → 2023-02-24 | Outpatient (CLI) | payer OTHER ==
[~2023-02-24] MED LIST changes: +GASTROGRAFIN SOLUTION 30ML As Ordered ONE; +ISOVUE-370 76% 100ML VIAL As Ordered ONE
== END ==
LOC: M RAD 11:25
PROVIDERS: ATTEND Internal Medicine Medical Oncology
DX: C54.1 Malignant neoplasm of endometrium (principal)
CPT/HCPCS: 71260; 74177; Q9963; Q9967